=== PATIENT | male | born 1940 | race African-American/Black ===

== ENCOUNTER 2016-06-09 11:17 | Inpatient (IN) | payer OTHER ==
[~2016-06-09] VITALS: Ht 172.7 cm; Wt 83.9 kg
[2016-06-09] VITALS (7 sets, daily range): BP systolic 88–108; BP diastolic 46–71
[2016-06-09] MEDS ORDERED: COLACE100 MG GT (11:22)
[2016-06-09] MEDS ORDERED: VITAMIN C500 M1 GT (11:29)
[2016-06-09] MEDS ORDERED: SENNA8.6 M2 GT (11:29)
[2016-06-09] MEDS ORDERED: ZINC SULFATE220 M1 GT (11:29)
[2016-06-09] MEDS ORDERED: ACETAMINOP160 MG/54 GT (11:29)
[2016-06-09] MEDS ORDERED: MULTI-DELYN237 ML GT (11:29)
[2016-06-09] MEDS ORDERED: ACETAMINOP160 MG/5 M GT (11:29)
[2016-06-09] MEDS ORDERED: IRON325 M1 GT (11:29)
[2016-06-09 12:22] LABS: APPEARANCE,URINE SLIGHTLY CLOUDY; KETONES,URINE NEGATIVE (NEGATIVE); LEUKOCYTE ESTERASE ,URINE 1+ (NEGATIVE); NITRITE,URINE NEGATIVE (NEGATIVE); PH,URINE 5 (4.5-8.0); PROTEIN,URINE 3+ (NEGATIVE); UROBILINOGEN,URINE NORMAL MG/DL (0.0-1.0)
[2016-06-09 12:25] LABS: MEAN CORPUSCULAR HGB CONC 31.3 G/DL (32.0-36.0); MEAN CORPUSCULAR VOLUME 89 FL (80-99); MEAN PLATELET VOLUME 8.1 FL (6.5-10.1); PLATELET COUNT 158 K/UL (150-450); RED BLOOD COUNT 2.83 M/UL (4.70-6.10); RED CELL DISTRIBUTION WIDTH 17.7 % (11.6-14.8); WHITE BLOOD COUNT 5.2 K/UL (4.8-10.8)
[2016-06-09 12:29] LABS: INR 1.1 (0.9-1.1); PROTHROMBIN TIME 10.8 SEC (9.30-11.50)
[2016-06-09 12:30] LABS: BACTERIA,URINE FEW /HPF; SQUAMOUS EPITHELIAL CELL,UR OCCASIONAL /LPF (NONE/OCC)
[2016-06-09 12:31] LABS: AMORPHOUS SEDIMENT,UR FEW /LPF
[2016-06-09 12:34] LABS: ALANINE AMINOTRANSFERASE 43 U/L (3-41); ALBUMIN/GLOBULIN RATIO 0.2 (1.0-2.7); ASPARTATE AMINO TRANSFERASE 72 U/L (5-40); CALCIUM 7.1 mg/dL (8.6-10.2); CARBON DIOXIDE 28 mEQ/L (20-30); CHLORIDE 91 mEQ/L (98-107); CREATININE 0.8 mg/dL (0.7-1.2); HEMOLYSIS 24; LIPASE 22 U/L (< 60); MAGNESIUM 2.4 mg/dL (1.7-2.5); PHOSPHORUS 4.4 mg/dL (2.5-4.8); SODIUM 127 mEQ/L (135-145); TOTAL PROTEIN 4.9 g/dL (6.6-8.7); TROPONIN I < 0.30 ng/mL (<=0.30)
--- NOTE | 2016-06-09 12:37 | Emergency Room Report ---
History of Present Illness General Chief Complaint: Altered Level of Consciousness Source: Medical Record, EMS (KARLO KUMARI D.O.) Present Illness HPI Patient presents from a nursing facility with Hypotension and change in mental status patient is chronically debilitated has a tracheostomy And ventilator dependent Patient was found to be hypotensive prior to arrival and paramedics summoned for further presentation to the ER Patient here is nonverbal The history of present illness is significantly limited Unknown regarding vomiting or diarrhea Patient was also severely hypothermic upon arrival (KARLO KUMARI D.O.) Allergies: Coded Allergies: No Known Allergies (Unverified , 06/09/16) Patient History Limited by: medical condition Past Medical History: see triage record Pertinent Family History: unable to obtain Reviewed Nursing Documentation: PMH: Agreed, PSxH: Agreed (KARLO KUMARI D.O.) Review of Systems All Other Systems: limited - Other than the ones mentioned in the history of present illness all others are reviewed however they do stay limited due to the patient's mental status (KARLO KUMARI D.O.) Physical Exam Vital Signs Date Time Temp Pulse Resp B/P Pulse Ox O2 Delivery O2 Flow Rate FiO2 06/09/16 11:07 97.5 91 19 79/50 99 Ambu-Bag 06/09/16 11:29 100 Sp02 EP Interpretation: reviewed, normal General Appearance: no apparent distress Head: normocephalic, atraumatic Eyes: bilateral eye PERRL ENT: no angioedema, dry mucus membranes Neck: supple, thyroid normal, other - Tracheostomy in place no obvious crepitus Respiratory: no accessory muscle use, crackles - diffusely Cardiovascular #1: regular rate, rhythm, no gallop, no JVD Gastrointestinal: non tender, soft, other - feeding tube in place Musculoskeletal: other - The patient chronically debilitated, not moving extremities to command Neurologic: responsive - To physical stimuli but was nonverbal not following commands Skin: other - Multiple decubitus breakdowns, chronic wounds left lower extremities Lymphatic: no adenopathy (KARLO KUMARI D.O.) Procedures Critical Care Time Critical Care Time Critical care is mandated in this patient who presented with cardiac arrest. Patient require my urgent intervention to attenuate the risks of metabolic collapse which may lead to cardiovascular collapse and . Critical care time is 35 minutes excluding any reportable procedure. Critical care time included evaluation, multiple reevaluation, looking at old charts, interpreting laboratory and diagnostic data, discussing case with patient and family and consultants, and charting. (LYNNETTE MENA M.D.) Medical Decision Making Diagnostic Impression: Primary Impression: Anemia Qualified Codes: D64.9 - Anemia, unspecified Additional Impressions: Pneumonia Qualified Codes: J18.9 - Pneumonia, unspecified organism Cardiac arrest Sepsis Qualified Codes: A41.9 - Sepsis, unspecified organism Acute and chronic respiratory failure ([id number]) Qualified Codes: J96.20 - Acute and chronic respiratory failure, unspecified whether with hypoxia or hypercapnia Labs Test 06/09/16 12:00 White Blood Count 5.2 K/UL (4.8-10.8) Red Blood Count 2.83 M/UL (4.70-6.10) Hemoglobin 7.9 G/DL (14.2-18.0) Hematocrit 25.3 % (42.0-52.0) Mean Corpuscular Volume 89 FL (80-99) Mean Corpuscular Hemoglobin 28.0 PG (27.0-31.0) Mean Corpuscular Hemoglobin Concent 31.3 G/DL (32.0-36.0) Red Cell Distribution Width 17.7 % (11.6-14.8) Platelet Count 158 K/UL (150-450) Mean Platelet Volume 8.1 FL (6.5-10.1) Neutrophils (%) (Auto) % (45.0-75.0) Lymphocytes (%) (Auto) % (20.0-45.0) Monocytes (%) (Auto) % (1.0-10.0) Eosinophils (%) (Auto) % (0.0-3.0) Basophils (%) (Auto) % (0.0-2.0) Differential Total Cells Counted 100 Neutrophils % (Manual) 60 % (45-75) Lymphocytes % (Manual) 23 % (20-45) Monocytes % (Manual) 7 % (1-10) Eosinophils % (Manual) 0 % (0-3) Basophils % (Manual) 0 % (0-2) Band Neutrophils 10 % (0-8) Platelet Estimate Adequate Platelet Morphology Normal Hypochromasia 1+ Anisocytosis 1+ Microcytosis 1+ Macrocytosis Occasional Prothrombin Time 10.8 SEC (9.30-11.50) Prothromb Time International Ratio 1.1 (0.9-1.1) Activated Partial Thromboplast Time 32 SEC (23-33) Urine Color Yellow Urine Appearance Slightly cloudy Urine pH 5 (4.5-8.0) Urine Specific [place] 1.010 (1.005-1.035) Urine Protein 3+ (NEGATIVE) Urine Glucose (UA) Negative (NEGATIVE) Urine Ketones Negative (NEGATIVE) Urine Occult Blood 2+ (NEGATIVE) Urine Nitrite Negative (NEGATIVE) Urine Bilirubin Negative (NEGATIVE) Urine Urobilinogen Normal MG/DL (0.0-1.0) Urine Leukocyte Esterase 1+ (NEGATIVE) Urine RBC 2-4 /HPF (0 - 0) Urine WBC 2-4 /HPF (0 - 0) Urine Squamous Epithelial Cells Occasional /LPF Urine Amorphous Sediment Few /LPF (NONE) Urine Bacteria Few /HPF (NONE) Sodium Level 127 mEQ/L (135-145) Potassium Level 5.9 mEQ/L (3.4-4.9) Chloride Level 91 mEQ/L (98-107) Carbon Dioxide Level 28 mEQ/L (20-30) Anion Gap 8 (5-15) Blood Urea Nitrogen 38 mg/dL (7-23) Creatinine 0.8 mg/dL (0.7-1.2) Estimat Glomerular Filtration Rate mL/min (>60) Glucose Level 46 mg/dL (74-106) Lactic Acid Level 0.90 mmol/L (0.66-2.22) Calcium Level 7.1 mg/dL (8.6-10.2) Phosphorus Level 4.4 mg/dL (2.5-4.8) Magnesium Level 2.4 mg/dL (1.7-2.5) Total Bilirubin 0.3 mg/dL (0.0-1.2) Aspartate Amino Transf (AST/SGOT) 72 U/L (5-40) Alanine Aminotransferase (ALT/SGPT) 43 U/L (3-41) Alkaline Phosphatase 350 U/L (40-129) Total Creatine Kinase 35 U/L (38-174) Creatine Kinase MB 4.6 ng/mL (< 6.7) Creatine Kinase MB Relative Index 13.1 Troponin I < 0.30 ng/mL (<=0.30) Pro-B-Type Natriuretic Peptide 6802 pg/mL (0-450) Total Protein 4.9 g/dL (6.6-8.7) Albumin 1.0 g/dL (3.5-5.2) Globulin 3.9 g/dL Albumin/Globulin Ratio 0.2 (1.0-2.7) Lipase 22 U/L (< 60) (KARLO KUMARI D.O.) ER Course This patient has acute on chronic respiratory failure secondary to multilobar pneumonia. Patient was in the ER an extended period time and was transfer of to [facility]. Was called to CODE BLUE. Shortly after he arrived to the [facility], he became bradycardic and hypotensive. He lost his pulse and a code was called. Per respiratory therapist, and his suction copious amount of purulent discharge from his trachea. He received CPR and had 2 rounds of epinephrine. He regained his pulse and blood pressure was normal. Patient was transferred to ICU. I suspect his cardiac arrest maybe secondary to a warming sepsis, because plugging, respiratory failure. Prognosis is poor. (LYNNETTE MENA M.D.) Last Vital Signs Date Time Temp Pulse Resp B/P Pulse Ox O2 Delivery O2 Flow Rate FiO2 06/09/16 12:29 97.5 14 97/50 99 Ambu-Bag 100 06/09/16 11:29 92 Status: improved (KARLO KUMARI D.O.) Status: worsened (LYNNETTE MENA M.D.) Disposition: ADMITTED INPATIENT Condition: Critical Referrals: [facility],REFERRING (PCP) KARLO KUMARI D.O. Jun 09, 2016 12:37 LYNNETTE MENA M.D. Jun 10, 2016 03:52
[2016-06-09 12:44] LABS: CKMB 4.6 ng/mL (< 6.7)
[2016-06-09 12:50] LABS: ANION GAP 8 (5-15); POTASSIUM 5.9 mEQ/L (3.4-4.9)
[2016-06-09] MEDS ORDERED: Vancomycin 1 GM in NS 275 ML IVPB ONE (13:00)
[2016-06-09] MEDS ORDERED: Piperacillin/Tazobactam 3.375 GM in NS 110 ML IVPB ONE (13:00)
[2016-06-09] MEDS ORDERED: NS 1000ml 1,900 ML IVLG ONE (13:00)
[2016-06-09 13:01] LABS: ANISOCYTOSIS 1+; BAND NEUTROPHILS % (MANUAL) 10 % (0-8); HYPOCHROMASIA 1+; LYMPHOCYTES % (MANUAL) 23 % (20-45); MICROCYTES 1+; NEUTROPHILS % (MANUAL) 60 % (45-75); TOTAL CELLS COUNTED 100
[2016-06-09 13:02] LABS: MACROCYTES OCCASIONAL
[2016-06-09 13:03] LABS: BASOPHILS % (MANUAL) 0 % (0-2); EOSINOPHILS % (MANUAL) 0 % (0-3); PLATELET ESTIMATE ADEQUATE; PLATELET MORPHOLOGY NORMAL
[2016-06-09] MEDS ORDERED: Sodium Polystyrene Sulfonate 15gm Powder ORAL ONE (13:15)
[2016-06-09] MEDS ORDERED: Vancomycin 1gm inj IVPB ONE (14:03)
[2016-06-09] MEDS ORDERED: Zosyn 3.375gm inj ONE (14:03)
[2016-06-09] MEDS ORDERED: Dextrose 10% 1,000 ML IV SCH (16:00)
[2016-06-10] VITALS (85 sets, daily range): BP systolic 53–130; BP diastolic 20–88
[2016-06-10 02:28] LABS: ABG ALLEN TEST POSITIVE; ABG BASE EXCESS -6.6; ABG PCO2 67.3 mmHg (35.0-45.0)
[2016-06-10] MEDS ORDERED: Vancomycin 750mg Inj IVPB ONE (03:02)
[2016-06-10] MEDS ORDERED: Zosyn 3.375gm inj ONE (03:02)
[2016-06-10] MEDS ORDERED: Piperacillin/Tazobactam 3.375 GM in D5W 110 ML IVPB SCH (03:30)
[2016-06-10] MEDS ORDERED: Levophed 4mg/4mL Inj IV ONE (03:35)
[2016-06-10] MEDS: Vancomycin 750mg/D5W 275ml IVPB SCH ×4 (04:00→17:26)
[2016-06-10 04:52] LABS: MEAN CORPUSCULAR VOLUME 90 FL (80-99); MEAN PLATELET VOLUME 9.5 FL (6.5-10.1); PLATELET COUNT 195 K/UL (150-450); RED CELL DISTRIBUTION WIDTH 17.9 % (11.6-14.8); WHITE BLOOD COUNT 4.5 K/UL (4.8-10.8)
[2016-06-10 05:32] LABS: ALANINE AMINOTRANSFERASE 39 U/L (3-41); ALBUMIN/GLOBULIN RATIO 0.4 (1.0-2.7); ANION GAP 10 (5-15); ASPARTATE AMINO TRANSFERASE 67 U/L (5-40); CALCIUM 6.5 mg/dL (8.6-10.2); CARBON DIOXIDE 25 mEQ/L (20-30); CHLORIDE 94 mEQ/L (98-107); CREATININE 0.9 mg/dL (0.7-1.2); HEMOLYSIS 4; POTASSIUM 5.4 mEQ/L (3.4-4.9); SODIUM 129 mEQ/L (135-145); TOTAL PROTEIN 4.2 g/dL (6.6-8.7)
[2016-06-10 05:33] LABS: TROPONIN I < 0.30 ng/mL (<=0.30)
[2016-06-10] MEDS: Piperacillin/Tazobactam 3.375 GM in D5W 110 ML IVPB SCH ×3 (05:53→21:22)
[2016-06-10] MEDS: metroNIDAZOLE 500mg tab GT SCH ×3 (06:11→21:22)
[2016-06-10 07:25] LABS: ABG BASE EXCESS -0.8; ABG PCO2 50.3 mmHg (35.0-45.0)
[2016-06-10] MEDS ORDERED: Acetaminophen Soln 160mg/5ml ORAL PRN (07:45)
[2016-06-10] MEDS ORDERED: Acetaminophen 650mg/20.3ml GT PRN (07:45)
[2016-06-10] MEDS ORDERED: Heparin 5000 units/ml inj SUBQ SCH (09:00)
[2016-06-10] MEDS: D5NS 1,000 ML IV SCH ×2 (09:25→17:26)
[2016-06-10] MEDS: Ferrous Sulfate 300 MG/5 ML UDC GT SCH (09:36)
[2016-06-10] MEDS: Zinc Sulfate 220mg cap GT SCH (09:36)
[2016-06-10] MEDS: Multivitamin 5ml Liquid GT SCH (09:36)
[2016-06-10] MEDS: Ascorbic Acid 500mg tab GT SCH (09:36)
[2016-06-10] MEDS ORDERED: Sodium Polystyrene Sulfonate 15gm Powder ORAL ONE (10:00)
--- NOTE | 2016-06-10 11:21 | Diagnostic Imaging Report ---
Indication: Chest Pain Comparison: None A single view chest radiograph was obtained. Findings: Tracheostomy is noted. There is a left upper extremity PICC line that terminates in the midline of the chest. Heart size is normal. There are diffuse primarily interstitial appearing infiltrates bilaterally versus pulmonary interstitial edema. The bones are osteopenic. There is volume loss at the left lung base with elevation of the diaphragm. Lucency central to this is probably the stomach. Impression: Interstitial edema versus pneumonitis/infiltrate. Please correlate clinically Left basilar volume loss due to atelectasis suspected.
--- NOTE | 2016-06-10 11:27 | Diagnostic Imaging Report ---
Indication: Dyspnea Comparison: 06/09/16 A single view chest radiograph was obtained. Findings: Lungs are hyperexpanded. There is a left pleural effusion suspected. Heart size is stable and within normal limits. Interstitial pneumonia versus edema again demonstrated. Some consolidation in the left midlung also demonstrated. The findings are unchanged. Impression: No significant overlock waistline joiner one day.
--- NOTE | 2016-06-10 11:48 | History and Physical Report ---
DATE OF ADMISSION: 06/09/2016 CHIEF COMPLAINT: Sepsis shock and cardiopulmonary arrest. HISTORY OF PRESENT ILLNESS: The patient is a 75-year-old male. He has a history of chronic respiratory failure, anemia, multiple pressure ulcers, cardiomyopathy, COPD, who was transferred from a intermediate facility with altered mental status, hypotension, and hypothermia. On evaluation in the emergency room, the patient had multi lobar pneumonia. He was started on broad-spectrum antibiotic therapy. He was admitted. Shortly after being admitted, he had a Code Blue. He became bradycardic after CPR. He was resuscitated and is now in the intensive care unit. He is on Levophed. He is poorly responsive. According to the patient's power of insurance defense attorney, the patient was previously awake and able to follow commands. PAST MEDICAL HISTORY: As above. PAST SURGICAL HISTORY: History of a tracheostomy and a G-tube. CURRENT MEDICATIONS: Reconciled and reviewed. ALLERGIES: None. FAMILY HISTORY: Unknown. SOCIAL HISTORY: There is no known history of tobacco, ethanol, or drugs. REVIEW OF SYSTEMS: From the patient is unobtainable. PHYSICAL EXAMINATION: VITAL SIGNS: Temperature was 94 degrees, blood pressure 112/46, pulse 67, respirations 19. GENERAL: The patient is a chronically ill-appearing thin male. HEENT: He has tracheostomy on the ventilator. He does open his eyes, but does not track or follow commands. NECK: Supple. There is some excoriations and ecchymoses at the trach site. HEART: Regular rate and rhythm. LUNGS: Clear. Bilateral rhonchi and rales. ABDOMEN: Soft and slightly distended. There is no rebound or guarding. EXTREMITIES: Without clubbing or cyanosis. The patient has multiple pressure ulcers. LABORATORY AND DIAGNOSTIC DATA: UA showed 2 to 4 WBCs. White count 5, hemoglobin 8 to 7.9, hematocrit 25.3, and platelet count 158,000. ABG showed pH of 7.32, pCO2 50, CO2 27, bicarb 26, and O2 saturation 99. Coags are normal. Sodium is 129, potassium 5.4, chloride 94, bicarbonate 25, BUN 38, creatinine 0.9, and glucose of 21. Lactic acid was 6.5. Troponin was negative x2. ASSESSMENT: This is an unfortunate male with, 1. Chronic respiratory failure. 2. Chronic obstructive pulmonary disease . 3. Anemia . 4. Cardiomyopathy. 5. Multiple pressure ulcers admitted with sepsis status post Code Blue. 6. Shock. 7. Sepsis. 8. Status post cardiac arrest. 9. Paroxysmal atrial fibrillation. 10. History of congestive heart failure. 11. Chronic obstructive pulmonary disease. PLAN: IV fluids, broad-spectrum antibiotics, pressors as needed. DVT and stress ulcer prophylaxis. We will follow up pending cultures. The patient's status is currently critical guarded. This was discussed with the patient's [id number] who wants the patient Full Code. Blood transfusion was discussed with the power of insurance defense attorney, risks and benefits. He is agreeable for blood transfusion, if needed . Tim Mcdaniel M.D. DR: Priya JOB#: [id number] CC:
[2016-06-10 12:15] LABS: TROPONIN I < 0.30 ng/mL (<=0.30)
[2016-06-10 18:54] LABS: TROPONIN I < 0.30 ng/mL (<=0.30)
--- NOTE | 2016-06-10 19:12 | Wound Care Consultation ---
Wound Assessment Wound Assessment #1: Wound Present on Admission: Yes New Wound: No Status Change of Wound: No Wound Location Body Site Modif: right Wound Location Body Site: other - Trach site Wound Type: traumatic injury Rodrick Test: Does not Rodrick Traumatic Injury Wounds: Skin Tear Wound Thickness: Partial Thickness Wound Length: 1.0 Wound Width: 1.0 Percent of Wound Bed Yellow/Wh: 100 Wound Drainage Amount: None Wound Drainage Odor: None/Absent Tissue Surrounding Wound: ecchymosis Wound General Appearance: Reddened Wound Assessment #2: Wound Number: #2 Wound Present on Admission: Yes New Wound: No Status Change of Wound: No Wound Location Body Site Modif: left, dorsal Wound Location Body Site: foot Wound Type: blister - open blister Rodrick Test: Does not Rodrick Blisters: Blister w/Sloughing Wound Length: 2.5 Wound Width: 3.0 Wound Drainage Description: Serosanguineous Wound Drainage Amount: Scant Wound Drainage Odor: None/Absent Tissue Surrounding Wound: Macerated Wound General Appearance: Reddened Wound Assessment #3: Wound Number: #3 Wound Present on Admission: Yes New Wound: No Status Change of Wound: No Wound Location Body Site Modif: left Wound Location Body Site: metatarsal head - 1st Wound Type: pressure ulcer Rodrick Test: Does not Rodrick Pressure Ulcer Stage: deep tissue injury Wound Thickness: Full Thickness Wound Length: 3.5 Wound Width: 3.0 Wound Depth: utd Percent of Wound Black/Brown: 100 Wound Drainage Amount: None Wound Drainage Odor: None/Absent Tissue Surrounding Wound: Intact Wound General Appearance: Asymptomatic, Blackened Wound Assessment #4: Wound Number: #4 Wound Present on Admission: Yes New Wound: No Status Change of Wound: No Wound Location Body Site Modif: left Wound Location Body Site: metatarsal head - 5th and 5th lateral toe Wound Type: pressure ulcer Rodrick Test: Does not Rodrick Pressure Ulcer Stage: deep tissue injury Wound Thickness: Full Thickness Wound Length: 4.5 Wound Width: 2.5 Wound Depth: utd Percent of Wound Black/Brown: 100 Wound Drainage Amount: None Wound Drainage Odor: None/Absent Tissue Surrounding Wound: Intact Wound General Appearance: Asymptomatic, Blackened Wound Assessment #5: Wound Number: #5 Wound Present on Admission: Yes New Wound: No Status Change of Wound: No Wound Location Body Site Modif: left, mid Wound Location Body Site: foot Wound Type: pressure ulcer Rodrick Test: Does not Rodrick Pressure Ulcer Stage: deep tissue injury Wound Thickness: Full Thickness Wound Length: 2.0 Wound Width: 2.0 Wound Depth: utd Percent of Wound Purple/Maroon: 100 Wound Drainage Amount: None Wound Drainage Odor: None/Absent Tissue Surrounding Wound: Erythemic Wound General Appearance: Asymptomatic, Reddened Wound Assessment #6: Wound Number: #6 Wound Present on Admission: Yes New Wound: No Status Change of Wound: No Wound Location Body Site Modif: left Wound Location Body Site: heel Wound Type: pressure ulcer Rodrick Test: Does not Rodrick Pressure Ulcer Stage: deep tissue injury Wound Thickness: Full Thickness Wound Length: 4.5 Wound Width: 3.5 Wound Depth: utd Percent of Wound Black/Brown: 100 Wound Drainage Amount: None Wound Drainage Odor: None/Absent Tissue Surrounding Wound: Erythemic Wound General Appearance: Blackened Wound Assessment #7: Wound Number: #7 Wound Present on Admission: Yes New Wound: No Status Change of Wound: No Wound Location Body Site Modif: left, medial Wound Location Body Site: heel Wound Type: pressure ulcer Rodrick Test: Does not Rodrick Pressure Ulcer Stage: deep tissue injury Wound Thickness: Full Thickness Wound Length: 3.0 Wound Width: 3.5 Wound Depth: utd Percent of Wound Black/Brown: 100 Wound Drainage Amount: None Wound Drainage Odor: None/Absent Tissue Surrounding Wound: Erythemic Wound General Appearance: Blackened Wound Assessment #8: Wound Number: #8 Wound Present on Admission: Yes New Wound: No Status Change of Wound: No Wound Location Body Site Modif: left, medial Wound Location Body Site: malleolus/ankle Wound Type: pressure ulcer Rodrick Test: Does not Rodrick Pressure Ulcer Stage: deep tissue injury Wound Thickness: Full Thickness Wound Length: 2.5 Wound Width: 2.5 Wound Depth: utd Percent of Wound Black/Brown: 100 Wound Drainage Amount: None Wound Drainage Odor: None/Absent Tissue Surrounding Wound: Intact Wound General Appearance: Asymptomatic, Blackened Wound Assessment #9: Wound Number: #9 Wound Present on Admission: Yes New Wound: No Status Change of Wound: No Wound Location Body Site Modif: left, posterior Wound Location Body Site: leg Wound Type: pressure ulcer Rodrick Test: Does not Rodrick Pressure Ulcer Stage: IV/unstageable Wound Thickness: Full Thickness Wound Length: 20.0 Wound Width: 5.0 Wound Depth: utd Percent of Wound Black/Brown: 100 Wound Drainage Description: Serosanguineous Wound Drainage Amount: Scant Wound Drainage Odor: None/Absent Tissue Surrounding Wound: Macerated Wound General Appearance: Blackened, Necrotic Wound Assessment #10: Wound Number: #10 Wound Present on Admission: Yes New Wound: No Status Change of Wound: No Wound Location Body Site Modif: left, lower, lateral Wound Location Body Site: knee - below the knee Wound Type: pressure ulcer Rodrick Test: Does not Rodrick Pressure Ulcer Stage: IV/unstageable Wound Thickness: Full Thickness Wound Length: 2.5 Wound Width: 2.5 Wound Depth: utd Percent of Wound Black/Brown: 100 Wound Drainage Description: Serosanguineous Wound Drainage Amount: Scant Wound Drainage Odor: None/Absent Tissue Surrounding Wound: Indurated Wound General Appearance: Blackened Wound Assessment #11: Wound Number: #11 Wound Present on Admission: Yes New Wound: No Status Change of Wound: No Wound Location Body Site Modif: left, posterior Wound Location Body Site: knee Rodrick Test: Does not Rodrick Traumatic Injury Wounds: Abrasion Wound Thickness: Full Thickness Wound Length: 3.0 Wound Width: 2.0 Percent of Wound [place]/Red: 100 Wound Drainage Amount: None Wound Drainage Odor: None/Absent Tissue Surrounding Wound: Erythemic Wound General Appearance: Reddened Wound Assessment #12: Wound Number: #12 Wound Present on Admission: Yes New Wound: No Status Change of Wound: No Wound Location Body Site Modif: left, upper Wound Location Body Site: back Wound Type: pressure ulcer Rodrick Test: Does not Rodrick Pressure Ulcer Stage: II Wound Thickness: Partial Thickness Wound Length: 1.5 Wound Width: 1.5 Wound Depth: 0.1 Percent of Wound [place]/Red: 100 Wound Drainage Description: Serosanguineous Wound Drainage Amount: Scant Wound Drainage Odor: None/Absent Tissue Surrounding Wound: Erythemic Wound General Appearance: Reddened Wound Assessment #13: Wound Number: #13 Wound Present on Admission: Yes New Wound: No Status Change of Wound: No Wound Location Body Site Modif: mid Wound Location Body Site: other - sacroccygeal Wound Type: pressure ulcer Rodrick Test: Does not Rodrick Pressure Ulcer Stage: IV/unstageable Wound Thickness: Full Thickness Wound Length: 10.0 Wound Width: 11.5 Wound Depth: utd Percent of Wound [place]/Red: 10 Percent of Wound Bed Yellow/Wh: 40 Percent of Wound Black/Brown: 50 Wound Drainage Description: Serosanguineous Wound Drainage Amount: Moderate Wound Drainage Odor: Mild Odor Tissue Surrounding Wound: Macerated Wound General Appearance: Blackened, Draining, Necrotic Wound Assessment #14: Wound Number: #14 Wound Present on Admission: Yes New Wound: No Status Change of Wound: No Wound Location Body Site Modif: right, lower, lateral Wound Location Body Site: leg Wound Type: traumatic injury Rodrick Test: Does not Rodrick Traumatic Injury Wounds: Skin Tear - multiple Wound Thickness: Partial Thickness Wound Drainage Description: Serosanguineous Wound Drainage Amount: Scant Wound Drainage Odor: None/Absent Tissue Surrounding Wound: Erythemic Wound General Appearance: Reddened Wound Assessment #15: Wound Number: #15 Wound Present on Admission: Yes New Wound: No Status Change of Wound: No Wound Location Body Site Modif: left, upper Wound Location Body Site: arm Wound Type: blister - open Rodrick Test: Does not Rodrick Blisters: Blister w/Sloughing Wound Length: 3.0 Wound Width: 1.5 Percent of Wound Bed Yellow/Wh: 100 Wound Drainage Description: Serosanguineous Wound Drainage Amount: Scant Wound Drainage Odor: None/Absent Tissue Surrounding Wound: Erythemic Wound General Appearance: Draining Wound Assessment #16: Wound Number: #16 Wound Present on Admission: Yes New Wound: No Status Change of Wound: No Wound Location Body Site Modif: right, lateral Wound Location Body Site: toe - big toe Wound Type: pressure ulcer Rodrick Test: Does not Rodrick Pressure Ulcer Stage: deep tissue injury Wound Thickness: Full Thickness Wound Length: 1.0 Wound Width: 0.5 Wound Depth: utd Percent of Wound Purple/Maroon: 100 Wound Drainage Amount: None Wound Drainage Odor: None/Absent Tissue Surrounding Wound: Intact Wound General Appearance: Asymptomatic, Reddened Wound Assessment #17: Wound Number: #17 Wound Present on Admission: Yes New Wound: No Status Change of Wound: No Wound Location Body Site Modif: left, lateral Wound Location Body Site: malleolus/ankle Wound Type: pressure ulcer Rodrick Test: Does not Rodrick Pressure Ulcer Stage: deep tissue injury Wound Thickness: Full Thickness Wound Length: 2.0 Wound Width: 2.5 Wound Depth: utd Percent of Wound Purple/Maroon: 100 Wound Drainage Amount: None Wound Drainage Odor: None/Absent Tissue Surrounding Wound: Erythemic Wound General Appearance: Asymptomatic, Reddened Wound Assessment #18: Wound Number: #18 Wound Present on Admission: Yes New Wound: No Status Change of Wound: No Wound Location Body Site: back Wound Type: other - with multiple discolorations purple in color and small skin tears Rodrick Test: Does not Rodrick Wound Drainage Amount: None Wound Drainage Odor: None/Absent Tissue Surrounding Wound: Erythemic Wound General Appearance: Reddened Wound Comment #1 Skin tear on left upper chest near to trach site with ecchymosis in a large area #2 Left dorsal foot which appears to be open blister with slough #3 1st metatarsal head DTI pressure ulcer #4 5th metatarsal and 5th lateral toe DTI pressure ulcer #5 Left Mid foot DTI pressure ulcer #6 Left heel DTI pressure ulcer #7 Left medial heel DTI pressure ulcer #8 Left medial malleolus DTI pressure ulcer #9 Left lateral malleolus DTI pressure ulcer #10 Left posterior lower leg stage IV/unstageable pressure ulcer #11 Left Lateral lower leg below knee stage IV/unstageable pressure ulcer #12 Left upper back stage II pressure ulcer #13 Sacrococcygeal stage IV/unstageable pressure ulcer #14 Right lower lateral leg with multiple skin teras #15 Left posterior knee abrasion #16 Left upper arm open blister with slough #17 Back area with multiple discolorations and skin tears #18 Right Lateral big to DTI pressure ulcer Recommendation -Keep clean and dry -Turn and reposition -Optimize nutrition -Low air loss mattress -Offload both heels -Heel protector on both heels -Consult for possible debridement of sacrococcygeal pressure ulcers with black leathery eschar -Local wound care per protocol for DTI -Sacrococcygeal area Cleanse with Dakin's solution, pat dry, apply Therahoney gel to wound bed, cover with Biatain silicone drg daily and PRN soiled/dislodged -Skin tears in multiple areas, Left posterior leg, left lateral leg, back area, left upper arm open blister with slough and left dorsal foot open blister with slough Cleanse with saline pat dry apply adaptic cover with bordered gauze daily and PRN soiled/dislodged -Assess and f/u accordingly for any changes SIMBA PORTER RN Jun 10, 2016 19:12
--- NOTE | 2016-06-10 20:08 | Consultation ---
DATE OF CONSULTATION: 06/10/2016 PULMONARY CONSULTATION REASON FOR CONSULTATION: Respiratory failure, hypotension, and sepsis. HISTORY OF PRESENT ILLNESS: The patient is a 75-year-old male, brought in with hypotension. The patient has also reduced mental status at the nursing facility. The patient is ventilator-dependant. The patient was brought in by 911. He is overall nonverbal. The patient's care was discussed and reviewed at the care home. The patient had fever at the nursing facility as well as in the emergency room. The patient was evaluated and found to have pneumonia. Also, the patient was noted to be significantly acidotic. Repeat blood gases, however, on changes in the ventilator are now improved. The patient's oxygenation appears to be mildly improved. The patient had no prodrome of symptoms. No fevers and no chills reported in the nursing facility. Events were very acute in nature overall per review and discussion with the care home staff. PAST MEDICAL HISTORY: The patient's past medical history is notable for history of cardiac arrest, history of significant anoxia, history of respiratory failure, history of chronic encephalopathy, history of anemia, history of contractures, history of tracheostomy, history of G-tube, and history of aspiration. MEDICATIONS: Reviewed. ALLERGIES: Reviewed. SOCIAL HISTORY: Recently working at [employer]. Nonsmoker and nondrinker. Bed-bound state. PHYSICAL EXAMINATION: GENERAL: Very contracted individual, poorly responsive. VITAL SIGNS: Blood pressure 107/28, the patient is saturating 100% on the ventilator, heart rate 72, recorded temperature is 98 degrees, and respiratory rate is 21. HEENT: Fairly negative. Mild temporal wasting noted. Oropharynx is dry. NECK: Supple. Carotids 2+. LUNGS: Coarse breath sounds. Moderate air entry. CARDIAC: Normal S1 and S2. Overall, with regular rate and rhythm. Systolic murmur at the left parasternal border. No rubs or gallops. ABDOMEN: Soft, nontender, and nondistended. G-tube in place. No hepatosplenomegaly. EXTREMITIES: No cyanosis or clubbing with noted contractures. NEUROLOGIC: Poorly responsive. LABORATORY DATA: Lab data all reviewed. White count is 4.5, hemoglobin 8.1, and platelets 195,000. Arterial blood gases initially with pH of 7.14, repeated with adjustment in the ventilator 7.32, CO2 of 50, O2 of 187, and bicarbonate 26. Chemistry, BUN 38, creatinine 0.9, sodium 139, and potassium 5.4. Albumin is 2.3. The x-ray is notable for pneumonia. IMPRESSION: 1. Sepsis with shock. 2. Hypotension. 3. Electrolyte imbalance. 4. Hyponatremia. 5. Hyperkalemia. 6. Acute renal failure. 7. Severe protein-calorie malnutrition. 8. Chronic encephalopathy. 9. Respiratory acidosis. RECOMMENDATIONS: 1. IV antibiotics empirically. 2. Echocardiogram. 3. DVT prophylaxis. 4. IV hydration. 5. Duplex of lower extremity to rule out DVT. 6. Resume care home medications. 7. Wound care evaluation. 8. Ventilatory management. 9. Follow up arterial blood gases and adjust, monitor clinically and recommend to taper FiO2 and pressors with Levophed as needed. 10. Cardiology and ID evaluation to follow. 11. The patient is guarded and critical at this time. Jr Perez M.D. DR: ELISA JOB#: [id number] CC: JOVANNY
[2016-06-10] MEDS ORDERED: Heparin 2000 units/Ns 1000ml IV ONE (20:30)
[2016-06-10] MEDS ORDERED: Heparin 25,000u/D5W 500ml 500 ML IV SCH (20:45)
[2016-06-10] MEDS ORDERED: Heparin 5000 units/ml inj IV ONE (20:45)
[2016-06-11] VITALS (80 sets, daily range): BP systolic 69–105; BP diastolic 35–59
[2016-06-11 00:21] LABS: INR 1.2 (0.9-1.1); PROTHROMBIN TIME 11.8 SEC (9.30-11.50)
--- NOTE | 2016-06-11 02:18 | Progress Note ---
DATE: 06/10/2016 CARDIOLOGY PROGRESS NOTE: SUBJECTIVE: The patient's condition remains critical. Prognosis is guarded. He is status post Code Blue as of yesterday. He remains on ventilator support via tracheostomy. He remains hypotensive and is requiring pressor. He is on broad-spectrum antibiotics. OBJECTIVE: VITAL SIGNS: Blood pressure is 98/49, pulse rate 90, respiratory rate 24, and temperature 97.4 degrees. NECK: Thick trach secretions. LUNGS: Coarse rhonchi with rales. HEART: Regular rhythm and rate. Normal S1 and S2. ABDOMEN: Soft. G-tube is intact. EXTREMITIES: Trace edema. Multiple decubiti, pictured. LABORATORY DATA: White count is 4.5 and hemoglobin 8.1. Troponin is negative. BUN is 38, creatinine 0.9, sodium 129, and potassium 5.4. Albumin is 1.3. ABG, pH is 7.32, pCO2 50, and pO2 187. IMPRESSION: 1. Sepsis. 2. Shock. 3. Status post code blue. 4. S/P Cardiopulmonary Arrest. 5. Hypovolemia. 6. Acute on chronic respiratory acidosis. 7. Lactic acidosis. 8. Paroxysmal atrial fibrillation. 9. Critical and guarded. PLAN: 1. Volume support broad-spectrum antibiotics. 2. Ventilator support. 3. Taper pressors as able. 4. Stress ulcer and deep venous thrombosis prophylaxis. 5. Skin care. Eddie Britt M.D. DR: Gatito JOB#: [id number] CC: JOVANNY
[2016-06-11] MEDS: D5NS 1,000 ML IV SCH ×3 (02:41→14:22)
--- NOTE | 2016-06-11 02:58 | Consultation ---
DATE OF CONSULTATION: 06/09/2016 CARDIOLOGY CONSULT CONSULTING PHYSICIAN: Eddie Britt M.D. REQUESTING PHYSICIAN: Tim Mcdaniel M.D. REASON FOR CONSULTATION: Shock. HISTORY OF PRESENT ILLNESS: The patient is seen in the emergency room. He presented earlier today from a intermediate facility with low blood pressure and lethargy. The patient has chronic respiratory failure with tracheostomy and is ventilator-dependent. In the emergency room, the patient was given IV fluid challenges. His initial blood pressure was 79/50, heart rate 91, and respiratory rate 19. The patient had a Code Blue episode upon admission with hypotension and bradycardia. He was suctioned from his endotracheal tube and received two rounds of epinephrine and was able to regain pulse and blood pressure. PAST MEDICAL HISTORY: Chronic obstructive pulmonary disease, ventilator-dependent respiratory failure, decubitus, chronic anemia, ischemic cardiomyopathy, history of congestive heart failure, dysphagia with G-tube, and paroxysmal atrial fibrillation. ALLERGIES: None. FAMILY HISTORY: Not known. SOCIAL HISTORY: No record of smoking or alcohol abuse, however, data is scant. REVIEW OF SYSTEMS: Not obtainable from the patient. Pertinent data that is available from record review is outlined above. The patient intermediate home chart has been reviewed by me. PHYSICAL EXAMINATION: GENERAL: The patient is ill-appearing and presently non-communicative. HEENT: Tracheostomy site with thick secretions. LUNGS: With coarse rhonchi and rales. CARDIAC: Regular rhythm and rate. Normal S1 and S2 with no appreciable murmur. ABDOMEN: Soft with G-tube intact. EXTREMITIES: Without edema. Multiple decubitus pictured. LABORATORY DATA: Urinalysis with no active sediment. White count 5 and hemoglobin 8. ABG, pH 7.32, pCO2 50, and pO2 97. Sodium 129, potassium 5.4, bicarbonate 25, BUN 38, and creatinine 0.9. Lactic acid 6.5. Troponin negative. IMPRESSION: 1. Status post respiratory failure and Code Blue arrest. 2. Ventilator-dependent respiratory failure. 3. Chronic obstructive pulmonary disease. 4. Shock, likely due to sepsis and possibly hypovolemia. 5. Anemia. 6. Underlying cardiomyopathy of unclear etiology. 7. Paroxysmal atrial fibrillation. 8. Lactic acidosis. PLAN: 1. Ventilator support via trach. 2. Volume resuscitation. 3. Pressors if inadequate response. 4. Stress ulcer and DVT prophylaxis. 5. Skin care evaluation. 6. Broad-spectrum antibiotics. 7. Monitor electrolytes and replace accordingly. 8. Monitor arterial blood gases and adjust vent settings accordingly as well as intravenous fluids. 9. Transfuse for hemoglobin below 8 g. 10. Echocardiogram to assess left ventricular function. Eddie Britt M.D. DR: ROSENDA JOB#: [id number] CC:
[2016-06-11] MEDS: Vancomycin 750mg/D5W 275ml IVPB SCH ×4 (03:44→16:17)
[2016-06-11 04:19] LABS: MEAN CORPUSCULAR HEMOGLOBIN 27.8 PG (27.0-31.0); MEAN CORPUSCULAR HGB CONC 31.2 G/DL (32.0-36.0); MEAN CORPUSCULAR VOLUME 89 FL (80-99); MEAN PLATELET VOLUME 8.9 FL (6.5-10.1); PLATELET COUNT 145 K/UL (150-450); RED BLOOD COUNT 2.56 M/UL (4.70-6.10); RED CELL DISTRIBUTION WIDTH 17.9 % (11.6-14.8); WHITE BLOOD COUNT 4.8 K/UL (4.8-10.8)
[2016-06-11 04:38] LABS: ALANINE AMINOTRANSFERASE 31 U/L (3-41); ALBUMIN/GLOBULIN RATIO 0.2 (1.0-2.7); ANION GAP 13 (5-15); ASPARTATE AMINO TRANSFERASE 46 U/L (5-40); CALCIUM 6.6 mg/dL (8.6-10.2); CARBON DIOXIDE 23 mEQ/L (20-30); CHLORIDE 92 mEQ/L (98-107); HEMOLYSIS 0; POTASSIUM 4.7 mEQ/L (3.4-4.9); SODIUM 128 mEQ/L (135-145); TOTAL PROTEIN 4.4 g/dL (6.6-8.7)
[2016-06-11 04:42] LABS: INR 1.2 (0.9-1.1); PROTHROMBIN TIME 12.1 SEC (9.30-11.50)
[2016-06-11] MEDS: Piperacillin/Tazobactam 3.375 GM in D5W 110 ML IVPB SCH ×3 (05:06→21:33)
[2016-06-11] MEDS: metroNIDAZOLE 500mg tab GT SCH ×3 (05:10→21:33)
[2016-06-11] MEDS: Heparin 25,000u/D5W 500ml 500 ML IV SCH ×2 (07:13→22:18)
[2016-06-11] MEDS: Multivitamin 5ml Liquid GT SCH (08:18)
[2016-06-11] MEDS: Ferrous Sulfate 300 MG/5 ML UDC GT SCH (08:18)
[2016-06-11] MEDS: Ascorbic Acid 500mg tab GT SCH (08:19)
[2016-06-11] MEDS: Zinc Sulfate 220mg cap GT SCH (08:19)
--- NOTE | 2016-06-11 08:19 | Critical Care Progress Note ---
Assessment/Plan Assessment/Plan IMPRESSION: 1. Sepsis with shock. 2. Hypotension. 3. Electrolyte imbalance. 4. Hyponatremia. 5. Hyperkalemia. 6. Acute renal failure. 7. Severe protein-calorie malnutrition. 8. Chronic encephalopathy. 9. Respiratory acidosis. 10. anemia PLAN IV antibiotics ID follow up taper pressors nutrition SNF meds ventilator as is follow up care closely ICU care reviewed labs noted remains critical medications/laboratory data/nursing notes/ICU care reviewed in detail note reviewed and edited care discussed with RN and RT ICU time spent 36 minutes Critical Care - Subjective Interval Events: full code HH dropped hypotensive ROS Limited/Unobtainable: Yes Condition: critical EKG Rhythm: Sinus Rhythm Residuals: minimal Tube Feeding Tolerated: yes I&O: Intake and Output 06/10/16 06/11/16 19:00 07:00 Intake Total 2068.708 ml 2675.703 ml Balance 2068.708 ml 2675.703 ml Intake Free Water 100 ml 100 ml IV Total 1648.708 ml 1975.703 ml Tube Feeding 140 ml 600 ml Other 180 ml # Voids 355 430 Critical Care - Objective Last 24 Hour Vital Signs Date Time Temp Pulse Resp B/P Pulse Ox O2 Delivery O2 Flow Rate FiO2 06/11/16 07:13 86/55 06/11/16 07:00 102 29 86/55 100 Mechanical Ventilator 45 06/11/16 06:45 105 29 89/54 100 Mechanical Ventilator 45 06/11/16 06:33 113 22 45 06/11/16 06:30 105 29 93/52 100 Mechanical Ventilator 45 06/11/16 06:15 105 29 93/52 100 Mechanical Ventilator 45 06/11/16 06:00 105 29 99/54 100 Mechanical Ventilator 45 06/11/16 05:50 99/54 06/11/16 05:45 109 29 90/47 100 Mechanical Ventilator 45 06/11/16 05:37 110 22 45 06/11/16 05:30 110 29 80/55 100 Mechanical Ventilator 45 06/11/16 05:15 111 29 80/55 100 Mechanical Ventilator 45 06/11/16 05:06 95/57 06/11/16 05:00 108 29 95/57 100 Mechanical Ventilator 45 06/11/16 04:00 104 06/11/16 04:00 97.6 104 29 101/45 100 Mechanical Ventilator 45 06/11/16 04:00 45 06/11/16 04:00 104 29 101/45 100 Mechanical Ventilator 45 06/11/17 03:14 114 21 45 06/11/17 03:00 103 29 105/49 100 Mechanical Ventilator 45 06/11/17 02:00 100 29 97/50 100 Mechanical Ventilator 45 17 01:05 98 22 45 06/11/ 01:00 98 29 96/46 100 Mechanical Ventilator 45 06/11/16 00:00 97 06/11/16 00:00 98.0 98 29 91/47 100 Mechanical Ventilator 45 17 00:00 45 06/10/ 23:45 97 29 91/52 100 Mechanical Ventilator 45 06/10/17 23:30 99 29 95/48 100 Mechanical Ventilator 45 06/10/16 23:15 101 29 91/54 100 Mechanical Ventilator 45 06/10/17 23:05 111 22 45 06/10/ 23:00 91/47 06/10/16 23:00 97 29 107/47 100 Mechanical Ventilator 45 06/10/16 22:45 98 29 96/49 100 Mechanical Ventilator 45 06/10/17 22:30 95 29 94/49 100 Mechanical Ventilator 45 06/10/17 22:15 95 29 91/45 100 Mechanical Ventilator 45 06/10/17 22:00 106/51 06/10/ 22:00 95 29 93/53 100 Mechanical Ventilator 45 06/10/17 21:45 94 29 97/47 100 Mechanical Ventilator 45 06/10/17 21:30 93 29 106/51 100 Mechanical Ventilator 45 06/10/16 21:15 93 29 101/49 100 Mechanical Ventilator 45 17 21:00 103/50 3/17 21:00 89 29 103/50 100 Mechanical Ventilator 45 06/10/17 20:45 94 29 102/52 100 Mechanical Ventilator 45 06/10/17 20:42 91 22 45 06/10/17 20:30 90 29 98/52 100 Mechanical Ventilator 45 06/10/17 20:15 91 29 95/49 100 Mechanical Ventilator 45 06/10/17 20:00 98.0 88 29 100/52 100 Mechanical Ventilator 45 06/10/17 20:00 45 06/10/17 20:00 100/52 06/10/17 20:00 88 3/19/17 19:45 91 29 100/48 100 Mechanical Ventilator 45 3/19/17 19:30 89 29 104/51 100 Mechanical Ventilator 45 319/17 19:15 88 29 85/60 100 Mechanical Ventilator 45 319/17 19:00 90 29 105/57 100 Mechanical Ventilator 45 319/17 19:00 105/57 3/17 18:54 90 22 45 06/10/17 18:45 89 25 99/42 100 Mechanical Ventilator 45 3/17 18:30 89 23 106/50 100 Mechanical Ventilator 45 319/17 18:15 88 25 100/53 100 Mechanical Ventilator 45 3/17 18:00 88 24 100/53 100 Mechanical Ventilator 45 3/17 18:00 100/53 06/10/17 17:45 88 25 97/62 100 Mechanical Ventilator 45 06/10/17 17:30 86 26 91/50 100 Mechanical Ventilator 45 06/10/17 17:15 83 22 94/48 100 Mechanical Ventilator 45 17 17:00 86/48 17 17:00 83 24 86/48 100 Mechanical Ventilator 45 06/10/17 16:47 88 22 60 17 16:45 84 23 98/49 100 Mechanical Ventilator 45 17 16:30 90 24 98/49 100 Mechanical Ventilator 45 06/10/17 16:15 89 24 89/49 100 Mechanical Ventilator 45 17 16:00 45 17 16:00 97.4 86 24 88/49 100 Mechanical Ventilator 45 17 16:00 86 17 16:00 89/49 17 15:45 89 25 93/52 100 Mechanical Ventilator 45 06/10/17 15:30 90 24 85/40 100 Mechanical Ventilator 45 06/10/17 15:17 96/61 3/17 15:15 86 21 93/50 100 Mechanical Ventilator 45 06/10/17 15:00 85 24 93/50 100 Mechanical Ventilator 45 06/10/17 14:49 88 22 60 3/17 14:45 88 22 112/59 100 Mechanical Ventilator 45 06/10/17 14:30 87 22 105/59 100 Mechanical Ventilator 45 06/10/17 14:15 88 23 108/57 100 Mechanical Ventilator 45 3/19/17 14:00 88 21 104/53 100 Mechanical Ventilator 45 06/10/16 13:45 88 25 107/54 100 Mechanical Ventilator 45 06/10/16 13:30 86 25 102/51 100 Mechanical Ventilator 45 06/10/16 13:15 85 28 102/51 100 Mechanical Ventilator 45 06/10/16 13:10 86 22 60 06/10/16 13:00 102/51 06/10/16 13:00 81 25 105/50 100 Mechanical Ventilator 45 06/10/16 12:45 85 21 102/52 100 Mechanical Ventilator 45 06/10/16 12:30 81 22 92/53 100 Mechanical Ventilator 45 06/10/16 12:15 79 22 95/55 100 Mechanical Ventilator 45 06/10/16 12:00 94.3 82 25 120/66 100 Mechanical Ventilator 45 06/10/16 12:00 86 06/10/16 12:00 45 06/10/16 12:00 102/52 06/10/16 11:45 87 25 101/59 100 Mechanical Ventilator 45 06/10/16 11:30 87 25 95/59 100 Mechanical Ventilator 45 06/10/16 11:15 88 25 116/88 100 Mechanical Ventilator 45 06/10/16 11:00 82 25 120/66 100 Mechanical Ventilator 45 06/10/16 11:00 120/66 06/10/16 10:45 81 24 130/58 100 Mechanical Ventilator 45 06/10/16 10:45 84 22 60 06/10/16 10:00 79 23 76/40 100 Mechanical Ventilator 45 06/10/16 10:00 130/74 06/10/16 09:45 70 21 90/27 100 Mechanical Ventilator 45 06/10/16 09:30 70 21 115/57 100 Mechanical Ventilator 45 06/10/16 09:25 121/60 06/10/16 09:15 70 21 116/47 100 Mechanical Ventilator 45 06/10/16 09:03 69 22 60 06/10/16 09:00 69 21 121/60 100 Mechanical Ventilator 45 06/10/16 08:45 70 20 117/63 100 Mechanical Ventilator 100 06/10/16 08:30 68 22 115/55 100 Mechanical Ventilator 100 Labs: Laboratory Tests Test 06/10/16 11:45 06/10/16 18:00 06/10/16 20:50 06/11/16 03:20 Troponin I < 0.30 ng/mL (<=0.30) < 0.30 ng/mL (<=0.30) Prothrombin Time 11.8 SEC (9.30-11.50) H 12.1 SEC (9.30-11.50) H Prothromb Time International Ratio 1.2 (0.9-1.1) H 1.2 (0.9-1.1) H Activated Partial Thromboplast Time 35 SEC (23-33) H 124 SEC (23-33) H White Blood Count 4.8 K/UL (4.8-10.8) Red Blood Count 2.56 M/UL (4.70-6.10) L Hemoglobin 7.1 G/DL (14.2-18.0) L Hematocrit 22.8 % (42.0-52.0) L Mean Corpuscular Volume 89 FL (80-99) Mean Corpuscular Hemoglobin 27.8 PG (27.0-31.0) Mean Corpuscular Hemoglobin Concent 31.2 G/DL (32.0-36.0) L Red Cell Distribution Width 17.9 % (11.6-14.8) H Platelet Count 145 K/UL (150-450) L Mean Platelet Volume 8.9 FL (6.5-10.1) Neutrophils (%) (Auto) % (45.0-75.0) Lymphocytes (%) (Auto) % (20.0-45.0) Monocytes (%) (Auto) % (1.0-10.0) Eosinophils (%) (Auto) % (0.0-3.0) Basophils (%) (Auto) % (0.0-2.0) Sodium Level 128 mEQ/L (135-145) L Potassium Level 4.7 mEQ/L (3.4-4.9) Chloride Level 92 mEQ/L (98-107) L Carbon Dioxide Level 23 mEQ/L (20-30) Anion Gap 13 (5-15) Blood Urea Nitrogen 39 mg/dL (7-23) H Creatinine 1.0 mg/dL (0.7-1.2) Estimat Glomerular Filtration Rate mL/min (>60) Glucose Level 133 mg/dL (74-106) #H Calcium Level 6.6 mg/dL (8.6-10.2) L Total Bilirubin 0.3 mg/dL (0.0-1.2) Aspartate Amino Transf (AST/SGOT) 46 U/L (5-40) H Alanine Aminotransferase (ALT/SGPT) 31 U/L (3-41) Alkaline Phosphatase 300 U/L (40-129) H Total Protein 4.4 g/dL (6.6-8.7) L Albumin 0.8 g/dL (3.5-5.2) L Globulin 3.6 g/dL Albumin/Globulin Ratio 0.2 (1.0-2.7) L Objective: GENERAL: Very contracted individual, poorly responsive. HEENT: Fairly negative. Mild temporal wasting noted. Oropharynx is dry. NECK: Supple. Carotids 2+. LUNGS: Coarse breath sounds. Moderate air entry. CARDIAC: Normal S1 and S2. Overall, with regular rate and rhythm. Systolic murmur at the left parasternal border. No rubs or gallops. ABDOMEN: Soft, nontender, and nondistended. G-tube in place. No hepatosplenomegaly. EXTREMITIES: No cyanosis or clubbing noted contractures. NEUROLOGIC: Poorly responsive. Micro: Microbiology Date/Time Source Procedure Growth Status 06/09/16 12:00 Blood Blood Culture - Preliminary Staphylococcus Aureus Resulted 06/09/16 11:50 Blood Blood Culture - Preliminary Staphylococcus Aureus Resulted 06/10/16 03:20 Sacral Wound Gram Stain - Final Resulted 06/10/16 03:20 Sacral Wound Wound Culture Pending Resulted Accucheck: 132 JACKIE DANIEL Jun 11, 2016 08:19
--- NOTE | 2016-06-11 11:49 | Infectious Diseases Prog Note ---
Assessment/Plan Assessment/Plan A; Staph aureus sepsis s/p code blue Pneumonia Septic shock DVT of legs VDRF Pressure ulcers Anemia hyponatremia P; Continue Vancomycin & Zosyn Change PICC line Will f/u cultures Subjective ROS Limited/Unobtainable: Yes Cardiovascular: Reports: other - hypotensive on Levophed Allergies: Coded Allergies: No Known Allergies (Unverified , 06/09/16) Objective Vital Signs Last 24 Hour Vital Signs Date Time Temp Pulse Resp B/P Pulse Ox O2 Delivery O2 Flow Rate FiO2 06/11/16 10:35 101 20 45 06/11/16 09:30 101 24 74/42 100 Mechanical Ventilator 45 06/11/16 09:15 101 24 82/48 100 Mechanical Ventilator 45 06/11/16 09:00 100 23 81/45 100 Mechanical Ventilator 45 06/11/16 09:00 82/48 06/11/16 08:45 101 26 75/43 100 Mechanical Ventilator 45 06/11/16 08:36 109 23 45 06/11/16 08:30 103 26 78/49 100 Mechanical Ventilator 45 06/11/16 08:19 82/46 06/11/16 08:15 104 23 85/44 100 Mechanical Ventilator 45 06/11/16 08:00 97.7 105 22 82/46 100 Mechanical Ventilator 45 06/11/16 08:00 45 06/11/16 08:00 106 06/11/16 07:45 105 25 91/50 100 Mechanical Ventilator 45 06/11/16 07:30 105 26 84/48 100 Mechanical Ventilator 45 06/11/16 07:15 105 22 83/48 100 Mechanical Ventilator 45 06/11/16 07:13 86/55 06/11/16 07:00 102 29 86/55 100 Mechanical Ventilator 45 06/11/16 06:45 105 29 89/54 100 Mechanical Ventilator 45 06/11/16 06:33 113 22 45 06/11/16 06:30 105 29 93/52 100 Mechanical Ventilator 45 06/11/16 06:15 105 29 93/52 100 Mechanical Ventilator 45 06/11/16 06:00 105 29 99/54 100 Mechanical Ventilator 45 06/11/16 05:50 99/54 06/11/16 05:45 109 29 90/47 100 Mechanical Ventilator 45 06/11/16 05:37 110 22 45 06/11/16 05:30 110 29 80/55 100 Mechanical Ventilator 45 3/17 05:15 111 29 80/55 100 Mechanical Ventilator 45 06/11/17 05:06 95/57 3 05:00 108 29 95/57 100 Mechanical Ventilator 45 06/11/17 04:00 104 317 04:00 97.6 104 29 101/45 100 Mechanical Ventilator 45 06/11/17 04:00 45 06/11/16 04:00 104 29 101/45 100 Mechanical Ventilator 45 17 03:14 114 21 45 06/11/ 03:00 103 29 105/49 100 Mechanical Ventilator 45 06/11/ 02:00 100 29 97/50 100 Mechanical Ventilator 45 06/11/16 01:05 98 22 45 06/11/16 01:00 98 29 96/46 100 Mechanical Ventilator 45 06/11/16 00:00 97 06/11/16 00:00 98.0 98 29 91/47 100 Mechanical Ventilator 45 06/11/16 00:00 45 06/10/16 23:45 97 29 91/52 100 Mechanical Ventilator 45 17 23:30 99 29 95/48 100 Mechanical Ventilator 45 06/10/17 23:15 101 29 91/54 100 Mechanical Ventilator 45 06/10/17 23:05 111 22 45 06/10/ 23:00 91/47 06/10/ 23:00 97 29 107/47 100 Mechanical Ventilator 45 06/10/17 22:45 98 29 96/49 100 Mechanical Ventilator 45 06/10/17 22:30 95 29 94/49 100 Mechanical Ventilator 45 06/10/17 22:15 95 29 91/45 100 Mechanical Ventilator 45 06/10/17 22:00 106/51 3/17 22:00 95 29 93/53 100 Mechanical Ventilator 45 06/10/17 21:45 94 29 97/47 100 Mechanical Ventilator 45 06/10/17 21:30 93 29 106/51 100 Mechanical Ventilator 45 3//17 21:15 93 29 101/49 100 Mechanical Ventilator 45 3/19/17 21:00 103/50 3//17 21:00 89 29 103/50 100 Mechanical Ventilator 45 3//17 20:45 94 29 102/52 100 Mechanical Ventilator 45 06/10/17 20:42 91 22 45 3/19/17 20:30 90 29 98/52 100 Mechanical Ventilator 45 3/19/17 20:15 91 29 95/49 100 Mechanical Ventilator 45 3/19/17 20:00 98.0 88 29 100/52 100 Mechanical Ventilator 45 3/19/17 20:00 45 3/19/17 20:00 100/52 3/19/17 20:00 88 3/19/17 19:45 91 29 100/48 100 Mechanical Ventilator 45 3/19/17 19:30 89 29 104/51 100 Mechanical Ventilator 45 3/19/17 19:15 88 29 85/60 100 Mechanical Ventilator 45 3/19/17 19:00 90 29 105/57 100 Mechanical Ventilator 45 3/19/17 19:00 105/57 3/19/17 18:54 90 22 45 3/19/17 18:45 89 25 99/42 100 Mechanical Ventilator 45 3/19/17 18:30 89 23 106/50 100 Mechanical Ventilator 45 3/19/17 18:15 88 25 100/53 100 Mechanical Ventilator 45 3/19/17 18:00 88 24 100/53 100 Mechanical Ventilator 45 319/17 18:00 100/53 3/19/17 17:45 88 25 97/62 100 Mechanical Ventilator 45 3/19/17 17:30 86 26 91/50 100 Mechanical Ventilator 45 3/19/17 17:15 83 22 94/48 100 Mechanical Ventilator 45 3/19/17 17:00 86/48 319/17 17:00 83 24 86/48 100 Mechanical Ventilator 45 3/19/17 16:47 88 22 60 3/17 16:45 84 23 98/49 100 Mechanical Ventilator 45 319/17 16:30 90 24 98/49 100 Mechanical Ventilator 45 319/17 16:15 89 24 89/49 100 Mechanical Ventilator 45 319/17 16:00 45 319/17 16:00 97.4 86 24 88/49 100 Mechanical Ventilator 45 3/19/17 16:00 86 3/19/17 16:00 89/49 3/17 15:45 89 25 93/52 100 Mechanical Ventilator 45 3/19/17 15:30 90 24 85/40 100 Mechanical Ventilator 45 3/19/17 15:17 96/61 319/17 15:15 86 21 93/50 100 Mechanical Ventilator 45 3/19/17 15:00 85 24 93/50 100 Mechanical Ventilator 45 06/10/16 14:49 88 22 60 06/10/16 14:45 88 22 112/59 100 Mechanical Ventilator 45 06/10/16 14:30 87 22 105/59 100 Mechanical Ventilator 45 06/10/16 14:15 88 23 108/57 100 Mechanical Ventilator 45 06/10/16 14:00 88 21 104/53 100 Mechanical Ventilator 45 06/10/16 13:45 88 25 107/54 100 Mechanical Ventilator 45 06/10/16 13:30 86 25 102/51 100 Mechanical Ventilator 45 06/10/16 13:15 85 28 102/51 100 Mechanical Ventilator 45 06/10/16 13:10 86 22 60 06/10/16 13:00 102/51 06/10/16 13:00 81 25 105/50 100 Mechanical Ventilator 45 06/10/16 12:45 85 21 102/52 100 Mechanical Ventilator 45 06/10/16 12:30 81 22 92/53 100 Mechanical Ventilator 45 06/10/16 12:15 79 22 95/55 100 Mechanical Ventilator 45 06/10/16 12:00 94.3 82 25 120/66 100 Mechanical Ventilator 45 06/10/16 12:00 86 06/10/16 12:00 45 06/10/16 12:00 102/52 06/10/16 11:45 87 25 101/59 100 Mechanical Ventilator 45 Height (Feet): 5 Height (Inches): 8.00 Weight (Pounds): 138 HEENT: status post trach Respiratory/Chest: lungs clear, other - on ventilator Cardiovascular: tachycardia Abdomen: soft, non tender, other - GT feeding Extremities: other - Left arm PICC line, generalized edema Neurologic/Psychiatric: unresponsiveness Microbiology Date/Time Source Procedure Growth Status 06/09/16 12:00 Blood Blood Culture - Preliminary Staphylococcus Aureus Resulted 06/09/16 11:50 Blood Blood Culture - Preliminary Staphylococcus Aureus Resulted 06/10/16 05:00 Sacral Wound Gram Stain - Final Resulted 06/10/16 05:00 Sacral Wound Wound Culture Pending Resulted 06/10/16 03:20 Sacral Wound Gram Stain - Final Resulted 06/10/16 03:20 Wound Culture - Preliminary Gram Negative Bacillus 1 Resulted Laboratory Tests Test 06/10/16 11:45 06/10/16 18:00 06/10/16 20:50 06/11/16 03:20 Troponin I < 0.30 ng/mL (<=0.30) < 0.30 ng/mL (<=0.30) Prothrombin Time 11.8 SEC (9.30-11.50) H 12.1 SEC (9.30-11.50) H Prothromb Time International Ratio 1.2 (0.9-1.1) H 1.2 (0.9-1.1) H Activated Partial Thromboplast Time 35 SEC (23-33) H 124 SEC (23-33) H White Blood Count 4.8 K/UL (4.8-10.8) Red Blood Count 2.56 M/UL (4.70-6.10) L Hemoglobin 7.1 G/DL (14.2-18.0) L Hematocrit 22.8 % (42.0-52.0) L Mean Corpuscular Volume 89 FL (80-99) Mean Corpuscular Hemoglobin 27.8 PG (27.0-31.0) Mean Corpuscular Hemoglobin Concent 31.2 G/DL (32.0-36.0) L Red Cell Distribution Width 17.9 % (11.6-14.8) H Platelet Count 145 K/UL (150-450) L Mean Platelet Volume 8.9 FL (6.5-10.1) Neutrophils (%) (Auto) % (45.0-75.0) Lymphocytes (%) (Auto) % (20.0-45.0) Monocytes (%) (Auto) % (1.0-10.0) Eosinophils (%) (Auto) % (0.0-3.0) Basophils (%) (Auto) % (0.0-2.0) Sodium Level 128 mEQ/L (135-145) L Potassium Level 4.7 mEQ/L (3.4-4.9) Chloride Level 92 mEQ/L (98-107) L Carbon Dioxide Level 23 mEQ/L (20-30) Anion Gap 13 (5-15) Blood Urea Nitrogen 39 mg/dL (7-23) H Creatinine 1.0 mg/dL (0.7-1.2) Estimat Glomerular Filtration Rate mL/min (>60) Glucose Level 133 mg/dL (74-106) #H Calcium Level 6.6 mg/dL (8.6-10.2) L Total Bilirubin 0.3 mg/dL (0.0-1.2) Aspartate Amino Transf (AST/SGOT) 46 U/L (5-40) H Alanine Aminotransferase (ALT/SGPT) 31 U/L (3-41) Alkaline Phosphatase 300 U/L (40-129) H Total Protein 4.4 g/dL (6.6-8.7) L Albumin 0.8 g/dL (3.5-5.2) L Globulin 3.6 g/dL Albumin/Globulin Ratio 0.2 (1.0-2.7) L Current Medications Medications (Trade) Dose Ordered Sig/Lulu Route PRN Reason Start Time Stop Time Status Last Admin Dose Admin Acetaminophen (Tylenol) 650 mg Q6H PRN GT Mild Pain/Temp > 100.5 06/10/16 07:45 07/10/16 07:44 Ascorbic Acid (Vitamin C) 500 mg DAILY GT 06/10/16 09:00 07/10/16 08:59 06/11/16 08:19 Dextrose (Dextrose 50%) 50 ml PRN PRN IV Per rx protocol 06/10/16 08:30 07/10/16 08:29 06/10/16 12:45 Dextrose/Sodium Chloride (D5ns) 1,000 ml @ 125 mls/hr Q8H IV 06/10/16 09:00 07/10/16 08:59 06/11/16 08:19 Ferrous Sulfate (Feosol) 300 mg DAILY GT 06/10/16 09:00 07/10/16 08:59 06/11/16 08:18 Heparin Sodium/ Dextrose (Heparin) 500 ml @ 18.779 mls/ hr adjust per protocol IV 06/11/16 05:42 07/10/16 20:44 06/11/16 07:13 Metronidazole 500 mg 500 mg Q8HR GT 06/10/16 06:00 06/17/16 05:59 06/11/16 05:10 Multivitamins (Multivitamin Hexavitamin) 5 ml DAILY GT 06/10/16 09:00 07/10/16 08:59 06/11/16 08:18 Norepinephrine Bitartrate/ Dextrose (Levophed/D5W) 250 ml @ 0 mls/hr Q24H IV 06/10/16 03:15 07/10/16 03:14 06/10/16 15:17 Pantoprazole 40 mg 40 mg DAILY ORAL 06/10/16 09:00 07/10/16 08:59 06/11/16 08:19 Piperacillin Sod/ Tazobactam Sod/ Dextrose (Zosyn/D5W) 110 ml @ 27.5 mls/hr Q8H IVPB 06/10/16 06:00 06/17/16 05:59 06/11/16 05:06 Sennosides (Senokot) 8.6 mg DAILY GT 06/10/16 09:00 07/10/16 08:59 06/11/16 08:19 Vancomycin HCl (Vanco rx to dose) 1 ea DAILY MISC 06/10/16 09:00 06/17/16 08:59 Vancomycin HCl 750 mg/Dextrose 275 ml @ 183.708 mls/hr Q12H IVPB 06/10/16 04:00 06/15/16 03:59 06/11/16 03:44 Zinc Sulfate 220 mg 220 mg DAILY GT 06/10/16 09:00 07/10/16 08:59 06/11/16 08:19 MATT LARSON Jun 11, 2016 11:49
[2016-06-11] MEDS ORDERED: Heparin 2000 units/Ns 1000ml INJ PRN (12:00)
[2016-06-11] MEDS ORDERED: Lidocaine 1% Plain 30 ml INJ PRN (12:00)
[2016-06-11] MEDS ORDERED: Sodium Bicarbonate 8.4% 50ml Inj IV PRN (12:00)
--- NOTE | 2016-06-11 13:31 | General Progress Note ---
Assessment/Plan Problem List: (1) DVT of axillary vein, acute ICD Codes: I82.A19 - Acute embolism and thrombosis of unspecified axillary vein SNOMED: 873851624 (2) Cardiac arrest ICD Codes: I46.9 - Cardiac arrest, cause unspecified SNOMED: 085109582 (3) Sepsis ICD Codes: A41.9 - Sepsis, unspecified organism SNOMED: 79750702 Qualifiers: Qualified Codes: A41.9 - Sepsis, unspecified organism (4) Acute and chronic respiratory failure ([id number]) ICD Codes: J96.20 - Acute and chronic respiratory failure, unspecified whether with hypoxia or hypercapnia SNOMED: 91563767, 63395822 Qualifiers: Qualified Codes: J96.20 - Acute and chronic respiratory failure, unspecified whether with hypoxia or hypercapnia (5) Pneumonia ICD Codes: J18.9 - Pneumonia, unspecified organism SNOMED: 455283762 Qualifiers: Qualified Codes: J18.9 - Pneumonia, unspecified organism (6) Anemia ICD Codes: D64.9 - Anemia, unspecified SNOMED: 755403951 Qualifiers: Qualified Codes: D64.9 - Anemia, unspecified Status: stable Assessment/Plan iv abx follow up cultures change picc heparin drip check stool ob/monitor for bleeding vent support resp rx ivf/gt feeds critical and guarded Subjective ROS Limited/Unobtainable: Yes Constitutional: Reports: malaise, weakness HEENT: Reports: no symptoms Cardiovascular: Reports: no symptoms Respiratory: Reports: shortness of breath Gastrointestinal/Abdominal: Reports: difficulty swallowing Genitourinary: Reports: no symptoms Neurologic/Psychiatric: Reports: pre-existing deficit Endocrine: Reports: no symptoms Hematologic/Lymphatic: Reports: anemia Allergies: Coded Allergies: No Known Allergies (Unverified , 06/09/16) All Systems: reviewed and negative except above Subjective remains on pressors. +dvt. on heparin drip. decreased h/h. no bleeding noted. + blood cultures Objective Last 24 Hour Vital Signs Date Time Temp Pulse Resp B/P Pulse Ox O2 Delivery O2 Flow Rate FiO2 06/11/16 13:00 85/48 06/11/16 12:45 97 23 90/52 100 Mechanical Ventilator 45 06/11/16 12:34 98 22 45 06/11/16 12:30 98 24 85/51 100 Mechanical Ventilator 45 06/11/16 12:15 99 23 90/49 100 Mechanical Ventilator 45 06/11/16 12:00 45 06/11/16 12:00 97 06/11/16 12:00 97.4 99 22 87/48 100 Mechanical Ventilator 45 06/11/16 12:00 90/49 06/11/16 11:45 97 24 87/50 100 Mechanical Ventilator 45 06/11/16 11:30 97 22 86/46 100 Mechanical Ventilator 45 06/11/16 11:15 96 23 69/44 100 Mechanical Ventilator 45 06/11/16 11:00 103 24 81/43 100 Mechanical Ventilator 45 06/11/16 10:45 103 24 81/43 100 Mechanical Ventilator 45 06/11/16 10:35 101 20 45 06/11/16 10:30 102 24 98/59 100 Mechanical Ventilator 45 06/11/16 10:15 101 26 80/49 100 Mechanical Ventilator 45 06/11/16 10:00 103 25 77/45 100 Mechanical Ventilator 45 06/11/16 09:45 99 22 77/41 100 Mechanical Ventilator 45 06/11/16 09:30 101 24 74/42 100 Mechanical Ventilator 45 06/11/16 09:15 101 24 82/48 100 Mechanical Ventilator 45 06/11/16 09:00 100 23 81/45 100 Mechanical Ventilator 45 06/11/16 09:00 82/48 06/11/16 08:45 101 26 75/43 100 Mechanical Ventilator 45 06/11/16 08:36 109 23 45 06/11/16 08:30 103 26 78/49 100 Mechanical Ventilator 45 06/11/16 08:19 82/46 06/11/16 08:15 104 23 85/44 100 Mechanical Ventilator 45 06/11/16 08:00 97.7 105 22 82/46 100 Mechanical Ventilator 45 06/11/16 08:00 45 06/11/16 08:00 106 06/11/16 07:45 105 25 91/50 100 Mechanical Ventilator 45 06/11/16 07:30 105 26 84/48 100 Mechanical Ventilator 45 06/11/16 07:15 105 22 83/48 100 Mechanical Ventilator 45 06/11/16 07:13 86/55 06/11/16 07:00 102 29 86/55 100 Mechanical Ventilator 45 06/11/16 06:45 105 29 89/54 100 Mechanical Ventilator 45 06/11/16 06:33 113 22 45 06/11/16 06:30 105 29 93/52 100 Mechanical Ventilator 45 17 06:15 105 29 93/52 100 Mechanical Ventilator 45 06/11/16 06:00 105 29 99/54 100 Mechanical Ventilator 45 17 05:50 99/54 06/11/16 05:45 109 29 90/47 100 Mechanical Ventilator 45 06/11/16 05:37 110 22 45 06/11/16 05:30 110 29 80/55 100 Mechanical Ventilator 45 06/11/16 05:15 111 29 80/55 100 Mechanical Ventilator 45 06/11/16 05:06 95/57 06/11/16 05:00 108 29 95/57 100 Mechanical Ventilator 45 06/11/16 04:00 104 06/11/16 04:00 97.6 104 29 101/45 100 Mechanical Ventilator 45 06/11/16 04:00 45 06/11/16 04:00 104 29 101/45 100 Mechanical Ventilator 45 06/11/16 03:14 114 21 45 06/11/16 03:00 103 29 105/49 100 Mechanical Ventilator 45 06/11/16 02:00 100 29 97/50 100 Mechanical Ventilator 45 06/11/16 01:05 98 22 45 06/11/16 01:00 98 29 96/46 100 Mechanical Ventilator 45 06/11/16 00:00 97 06/11/16 00:00 98.0 98 29 91/47 100 Mechanical Ventilator 45 06/11/16 00:00 45 06/10/16 23:45 97 29 91/52 100 Mechanical Ventilator 45 06/10/16 23:30 99 29 95/48 100 Mechanical Ventilator 45 06/10/16 23:15 101 29 91/54 100 Mechanical Ventilator 45 06/10/16 23:05 111 22 45 06/10/16 23:00 91/47 06/10/16 23:00 97 29 107/47 100 Mechanical Ventilator 45 06/10/16 22:45 98 29 96/49 100 Mechanical Ventilator 45 06/10/17 22:30 95 29 94/49 100 Mechanical Ventilator 45 06/10/17 22:15 95 29 91/45 100 Mechanical Ventilator 45 06/10/17 22:00 106/51 06/10/16 22:00 95 29 93/53 100 Mechanical Ventilator 45 3/19/17 21:45 94 29 97/47 100 Mechanical Ventilator 45 3/19/17 21:30 93 29 106/51 100 Mechanical Ventilator 45 3/19/17 21:15 93 29 101/49 100 Mechanical Ventilator 45 3/19/17 21:00 103/50 3/19/17 21:00 89 29 103/50 100 Mechanical Ventilator 45 3/19/17 20:45 94 29 102/52 100 Mechanical Ventilator 45 3/19/17 20:42 91 22 45 3/19/17 20:30 90 29 98/52 100 Mechanical Ventilator 45 3/19/17 20:15 91 29 95/49 100 Mechanical Ventilator 45 3/19/17 20:00 98.0 88 29 100/52 100 Mechanical Ventilator 45 3/19/17 20:00 45 3/19/17 20:00 100/52 3/19/17 20:00 88 3/19/17 19:45 91 29 100/48 100 Mechanical Ventilator 45 3/19/17 19:30 89 29 104/51 100 Mechanical Ventilator 45 3/19/17 19:15 88 29 85/60 100 Mechanical Ventilator 45 3/19/17 19:00 90 29 105/57 100 Mechanical Ventilator 45 3/19/17 19:00 105/57 3/19/17 18:54 90 22 45 3/19/17 18:45 89 25 99/42 100 Mechanical Ventilator 45 3/19/17 18:30 89 23 106/50 100 Mechanical Ventilator 45 3/19/17 18:15 88 25 100/53 100 Mechanical Ventilator 45 3/19/17 18:00 88 24 100/53 100 Mechanical Ventilator 45 3/19/17 18:00 100/53 3/19/17 17:45 88 25 97/62 100 Mechanical Ventilator 45 3/19/17 17:30 86 26 91/50 100 Mechanical Ventilator 45 3/19/17 17:15 83 22 94/48 100 Mechanical Ventilator 45 3/19/17 17:00 86/48 3/19/17 17:00 83 24 86/48 100 Mechanical Ventilator 45 3/19/17 16:47 88 22 60 3/19/17 16:45 84 23 98/49 100 Mechanical Ventilator 45 3/19/17 16:30 90 24 98/49 100 Mechanical Ventilator 45 3/19/17 16:15 89 24 89/49 100 Mechanical Ventilator 45 3/19/17 16:00 45 06/10/16 16:00 97.4 86 24 88/49 100 Mechanical Ventilator 45 06/10/16 16:00 86 06/10/16 16:00 89/49 06/10/16 15:45 89 25 93/52 100 Mechanical Ventilator 45 06/10/16 15:30 90 24 85/40 100 Mechanical Ventilator 45 06/10/16 15:17 96/61 06/10/16 15:15 86 21 93/50 100 Mechanical Ventilator 45 06/10/16 15:00 85 24 93/50 100 Mechanical Ventilator 45 06/10/16 14:49 88 22 60 06/10/16 14:45 88 22 112/59 100 Mechanical Ventilator 45 06/10/16 14:30 87 22 105/59 100 Mechanical Ventilator 45 06/10/16 14:15 88 23 108/57 100 Mechanical Ventilator 45 06/10/16 14:00 88 21 104/53 100 Mechanical Ventilator 45 06/10/16 13:45 88 25 107/54 100 Mechanical Ventilator 45 06/10/16 13:30 86 25 102/51 100 Mechanical Ventilator 45 Intake and Output 06/10/16 06/11/16 19:00 07:00 Intake Total 2068.708 ml 2675.703 ml Balance 2068.708 ml 2675.703 ml Intake Free Water 100 ml 100 ml IV Total 1648.708 ml 1975.703 ml Tube Feeding 140 ml 600 ml Other 180 ml # Voids 355 430 Laboratory Tests 06/10/16 18:00: Troponin I < 0.30 06/10/16 20:50: Prothrombin Time 11.8H, Prothromb Time International Ratio 1.2H, Activated Partial Thromboplast Time 35H 06/11/16 03:20: Prothrombin Time 12.1H, Prothromb Time International Ratio 1.2H, Activated Partial Thromboplast Time 124H, White Blood Count 4.8, Red Blood Count 2.56L, Hemoglobin 7.1L, Hematocrit 22.8L, Mean Corpuscular Volume 89, Mean Corpuscular Hemoglobin 27.8, Mean Corpuscular Hemoglobin Concent 31.2L, Red Cell Distribution Width 17.9H, Platelet Count 145L, Mean Platelet Volume 8.9, Neutrophils (%) (Auto) , Lymphocytes (%) (Auto) , Monocytes (%) (Auto) , Eosinophils (%) (Auto) , Basophils (%) (Auto) , Sodium Level 128L, Potassium Level 4.7, Chloride Level 92L, Carbon Dioxide Level 23, Anion Gap 13, Blood Urea Nitrogen 39H, Creatinine 1.0, Estimat Glomerular Filtration Rate , Glucose Level 133#H, Calcium Level 6.6L, Total Bilirubin 0.3, Aspartate Amino Transf ( AST/SGOT) 46H, Alanine Aminotransferase (ALT/SGPT) 31, Alkaline Phosphatase 300H , Total Protein 4.4L, Albumin 0.8L, Globulin 3.6, Albumin/Globulin Ratio 0.2L 06/11/16 12:50: Activated Partial Thromboplast Time [Pending] Height (Feet): 5 Height (Inches): 8.00 Weight (Pounds): 138 General Appearance: WD/WN, lethargic, thin Neck: supple Cardiovascular: normal rate Respiratory/Chest: rhonchi - bilaterally, expiratory wheezing Abdomen: normal bowel sounds, non tender, soft, no organomegaly Edema: no edema noted Arm (L), no edema noted Arm (R), no edema noted Leg (L), no edema noted Leg (R), no edema noted Pedal (L), no edema noted Pedal (R), no edema noted Generalized Neurologic: unresponsive MYLES AGUIRRE Jun 11, 2016 13:31
[2016-06-11] MEDS: Sodium Chloride 1gm Tab ORAL SCH ×2 (14:22→18:20)
[2016-06-12] VITALS (62 sets, daily range): BP systolic 56–118; BP diastolic 22–67
[2016-06-12] MEDS: D5NS 1,000 ML IV SCH ×2 (02:59→17:00)
[2016-06-12] MEDS: metroNIDAZOLE 500mg tab GT SCH (05:23)
[2016-06-12] MEDS: Piperacillin/Tazobactam 3.375 GM in D5W 110 ML IVPB SCH ×3 (05:23→22:11)
[2016-06-12 06:22] LABS: BASOPHILS % (AUTO) 0.8 % (0.0-2.0); EOSINOPHILS % (AUTO) 0.3 % (0.0-3.0); MEAN CORPUSCULAR HEMOGLOBIN 28.8 PG (27.0-31.0); MEAN CORPUSCULAR HGB CONC 31.9 G/DL (32.0-36.0); MEAN CORPUSCULAR VOLUME 90 FL (80-99); MEAN PLATELET VOLUME 10.2 FL (6.5-10.1); MONOCYTES % (AUTO) 7.3 % (1.0-10.0); NEUTROPHILS % (AUTO) 83.6 % (45.0-75.0); PLATELET COUNT 114 K/UL (150-450); RED BLOOD COUNT 3.39 M/UL (4.70-6.10); RED CELL DISTRIBUTION WIDTH 16.5 % (11.6-14.8); WHITE BLOOD COUNT 6.2 K/UL (4.8-10.8)
[2016-06-12 06:37] LABS: ALANINE AMINOTRANSFERASE 25 U/L (3-41); ALBUMIN/GLOBULIN RATIO 0.2 (1.0-2.7); ANION GAP 14 (5-15); ASPARTATE AMINO TRANSFERASE 36 U/L (5-40); CALCIUM 6.7 mg/dL (8.6-10.2); CARBON DIOXIDE 21 mEQ/L (20-30); CHLORIDE 90 mEQ/L (98-107); CREATININE 1.3 mg/dL (0.7-1.2); HEMOLYSIS 8; POTASSIUM 4.7 mEQ/L (3.4-4.9); SODIUM 125 mEQ/L (135-145); TOTAL PROTEIN 4.7 g/dL (6.6-8.7)
[2016-06-12] MEDS ORDERED: DuoNeb 0.5-3(2.5)mg/3ml neb HHN PRN (07:45)
[2016-06-12] MEDS: Multivitamin 5ml Liquid GT SCH (08:58)
[2016-06-12] MEDS: Ascorbic Acid 500mg tab GT SCH (08:58)
[2016-06-12] MEDS: Sodium Chloride 1gm Tab ORAL SCH (08:58)
[2016-06-12] MEDS: Ferrous Sulfate 300 MG/5 ML UDC GT SCH (08:58)
[2016-06-12] MEDS: Zinc Sulfate 220mg cap GT SCH (09:16)
--- NOTE | 2016-06-12 09:20 | General Progress Note ---
Assessment/Plan Problem List: (1) DVT of axillary vein, acute ICD Codes: I82.A19 - Acute embolism and thrombosis of unspecified axillary vein SNOMED: 202997879 (2) Cardiac arrest ICD Codes: I46.9 - Cardiac arrest, cause unspecified SNOMED: 405364368 (3) Sepsis ICD Codes: A41.9 - Sepsis, unspecified organism SNOMED: 22471966 Qualifiers: Qualified Codes: A41.9 - Sepsis, unspecified organism (4) Acute and chronic respiratory failure ([id number]) ICD Codes: J96.20 - Acute and chronic respiratory failure, unspecified whether with hypoxia or hypercapnia SNOMED: 10033465, [id number] Qualifiers: Qualified Codes: J96.20 - Acute and chronic respiratory failure, unspecified whether with hypoxia or hypercapnia (5) Pneumonia ICD Codes: J18.9 - Pneumonia, unspecified organism SNOMED: 413345389 Qualifiers: Qualified Codes: J18.9 - Pneumonia, unspecified organism (6) Anemia ICD Codes: D64.9 - Anemia, unspecified SNOMED: 370494945 Qualifiers: Qualified Codes: D64.9 - Anemia, unspecified Status: stable, progressing Assessment/Plan iv abx follow up cultures change picc- needed emergently- likely infected and contributing to pts sepsis heparin drip pressors monitor uop bolus fluids check stool ob/monitor for bleeding vent support resp rx ivf/gt feeds critical and guarded Subjective ROS Limited/Unobtainable: Yes Constitutional: Reports: malaise, weakness HEENT: Reports: no symptoms Cardiovascular: Reports: no symptoms Respiratory: Reports: shortness of breath Gastrointestinal/Abdominal: Reports: difficulty swallowing Genitourinary: Reports: no symptoms Neurologic/Psychiatric: Reports: pre-existing deficit Endocrine: Reports: no symptoms Hematologic/Lymphatic: Reports: anemia Allergies: Coded Allergies: No Known Allergies (Unverified , 06/09/16) All Systems: reviewed and negative except above Subjective remains on pressors. +dvt. on heparin drip. poor uop. bp remains on the low side. positive cultures noted. mostly unresponsive Objective Last 24 Hour Vital Signs Date Time Temp Pulse Resp B/P Pulse Ox O2 Delivery O2 Flow Rate FiO2 06/12/16 07:06 106/58 06/12/16 07:00 98 21 106/58 100 Mechanical Ventilator 45 06/12/16 06:46 99 22 40 06/12/16 06:45 99 21 103/64 100 Mechanical Ventilator 45 06/12/16 06:30 99 21 106/64 100 Mechanical Ventilator 45 06/12/16 06:15 100 21 83/67 100 Mechanical Ventilator 45 06/12/16 06:00 99 21 83/67 100 Mechanical Ventilator 45 06/12/16 06:00 83/67 06/12/16 05:45 99 21 87/56 100 Mechanical Ventilator 45 06/12/16 05:30 100 21 83/62 100 Mechanical Ventilator 45 06/12/16 05:15 101 21 89/62 100 Mechanical Ventilator 45 06/12/16 05:00 100 21 99/61 100 Mechanical Ventilator 45 06/12/16 05:00 99/61 06/12/16 04:45 99 21 100/61 100 Mechanical Ventilator 45 06/12/16 04:31 96 22 40 06/12/16 04:30 98 21 56/44 100 Mechanical Ventilator 45 06/12/16 04:15 96 21 56/44 100 Mechanical Ventilator 45 06/12/16 04:00 40 06/12/16 04:00 96.5 95 21 69/38 100 Mechanical Ventilator 45 06/12/16 04:00 69/44 06/12/16 04:00 100 06/12/16 03:45 93 21 96/44 100 Mechanical Ventilator 45 06/12/16 03:30 96 21 85/43 100 Mechanical Ventilator 45 06/12/16 03:15 98 21 85/46 100 Mechanical Ventilator 45 06/12/16 03:02 99 22 40 06/12/16 03:00 97 21 97/45 100 Mechanical Ventilator 45 06/12/16 03:00 97/45 06/12/16 02:45 97 21 102/43 100 Mechanical Ventilator 45 06/12/16 02:30 97 21 97/45 100 Mechanical Ventilator 45 06/12/16 02:15 96 21 94/45 100 Mechanical Ventilator 45 06/12/16 02:00 93/43 06/12/16 02:00 96 21 86/42 100 Mechanical Ventilator 45 06/12/16 01:45 96 21 99/45 100 Mechanical Ventilator 45 06/12/16 01:30 97 21 90/46 100 Mechanical Ventilator 45 06/12/16 01:15 95 21 99/45 100 Mechanical Ventilator 45 06/12/16 01:00 95 21 98/42 100 Mechanical Ventilator 45 06/12/16 01:00 98/42 06/12/16 00:45 95 21 97/46 100 Mechanical Ventilator 45 06/12/16 00:41 98 22 40 06/12/16 00:30 94 21 100/49 100 Mechanical Ventilator 45 06/12/16 00:15 94 21 100/49 100 Mechanical Ventilator 45 06/12/16 00:00 97.8 92 21 94/45 100 Mechanical Ventilator 45 06/12/16 00:00 40 06/12/16 00:00 92 06/11/16 23:45 92 21 102/46 100 Mechanical Ventilator 45 06/11/16 23:30 94 21 85/40 100 Mechanical Ventilator 45 06/11/16 23:15 94 21 97/42 100 Mechanical Ventilator 45 06/11/16 23:00 93 21 97/42 100 Mechanical Ventilator 45 06/11/16 23:00 101/47 06/11/16 22:45 95 23 101/47 100 Mechanical Ventilator 45 06/11/16 22:39 95 22 40 06/11/16 22:30 95 20 90/42 100 Mechanical Ventilator 45 06/11/16 22:15 95 22 98/44 100 Mechanical Ventilator 45 06/11/16 22:00 95 22 94/41 100 Mechanical Ventilator 45 06/11/16 22:00 98/44 06/11/16 21:45 97 18 98/46 100 Mechanical Ventilator 45 06/11/16 21:30 95 18 98/45 98 Mechanical Ventilator 45 06/11/16 21:15 93 21 94/45 100 Mechanical Ventilator 45 06/11/16 21:00 94 20 82/44 100 Mechanical Ventilator 45 06/11/16 21:00 87/44 06/11/16 20:58 96 22 40 06/11/16 20:45 97 18 88/40 100 Mechanical Ventilator 45 06/11/16 20:30 95 21 96/42 100 Mechanical Ventilator 45 06/11/16 20:26 97/46 06/11/16 20:15 98.4 96 21 97/46 100 Mechanical Ventilator 45 06/11/16 20:00 95 06/11/16 20:00 96 18 96/47 100 Mechanical Ventilator 45 06/11/16 20:00 96/46 06/11/16 20:00 45 3/20/17 19:30 97 18 85/44 100 Mechanical Ventilator 45 3/20/17 19:15 96 20 92/47 99 Mechanical Ventilator 45 3/20/17 19:10 101 22 40 3/20/17 19:00 84/43 3/20/17 19:00 94 18 84/43 100 Mechanical Ventilator 45 /20/17 18:45 96 21 93/46 100 Mechanical Ventilator 45 20/17 18:30 95 18 98/46 100 Mechanical Ventilator 45 20/17 18:15 94 18 93/46 100 Mechanical Ventilator 45 /20/17 18:00 94 18 95/47 100 Mechanical Ventilator 45 20/17 18:00 95/48 20/17 17:45 98 18 84/48 100 Mechanical Ventilator 45 20/17 17:30 92 18 88/45 100 Mechanical Ventilator 45 20/17 17:15 96 17 92/44 100 Mechanical Ventilator 45 20/17 17:00 96 06/11/17 17:00 96 18 96/50 100 Mechanical Ventilator 45 17 17:00 92/44 06/11/16 16:45 92 20 96/46 100 Mechanical Ventilator 45 06/11/17 16:31 99 21 45 06/11/17 16:30 98 20 97/43 100 Mechanical Ventilator 45 06/11/17 16:15 96 18 93/45 100 Mechanical Ventilator 45 06/11/17 16:00 94 18 86/42 98 Mechanical Ventilator 45 06/11/17 16:00 45 20/17 16:00 93/45 06/11/17 15:45 96 18 85/44 100 Mechanical Ventilator 45 06/11/17 15:30 95 18 79/35 100 Mechanical Ventilator 45 20/17 15:15 98.1 96 18 73/38 100 Mechanical Ventilator 45 20/17 15:00 94 17 75/40 100 Mechanical Ventilator 45 06/11/17 14:45 94 21 105/54 100 Mechanical Ventilator 45 06/11/17 14:44 96 21 45 /20/17 14:30 96 22 105/54 100 Mechanical Ventilator 45 /20/17 14:15 95 22 102/43 100 Mechanical Ventilator 45 20/17 14:00 99/55 06/11/17 14:00 95 22 99/55 100 Mechanical Ventilator 45 3/20/17 13:45 95 21 84/48 100 Mechanical Ventilator 45 06/11/16 13:30 98 21 88/44 100 Mechanical Ventilator 45 06/11/16 13:15 96 22 90/48 100 Mechanical Ventilator 45 06/11/16 13:00 97 22 85/46 100 Mechanical Ventilator 45 06/11/16 13:00 85/48 06/11/16 12:45 97 23 90/52 100 Mechanical Ventilator 45 06/11/16 12:34 98 22 45 06/11/16 12:30 98 24 85/51 100 Mechanical Ventilator 45 06/11/16 12:15 99 23 90/49 100 Mechanical Ventilator 45 06/11/16 12:00 45 06/11/16 12:00 97 06/11/16 12:00 97.4 99 22 87/48 100 Mechanical Ventilator 45 06/11/16 12:00 90/49 06/11/16 11:45 97 24 87/50 100 Mechanical Ventilator 45 06/11/16 11:30 97 22 86/46 100 Mechanical Ventilator 45 06/11/16 11:15 96 23 69/44 100 Mechanical Ventilator 45 06/11/16 11:00 103 24 81/43 100 Mechanical Ventilator 45 06/11/16 10:45 103 24 81/43 100 Mechanical Ventilator 45 06/11/16 10:35 101 20 45 06/11/16 10:30 102 24 98/59 100 Mechanical Ventilator 45 06/11/16 10:15 101 26 80/49 100 Mechanical Ventilator 45 06/11/16 10:00 103 25 77/45 100 Mechanical Ventilator 45 06/11/16 09:45 99 22 77/41 100 Mechanical Ventilator 45 06/11/16 09:30 101 24 74/42 100 Mechanical Ventilator 45 Intake and Output 06/11/16 06/12/16 19:00 07:00 Intake Total 2136.482 ml 1914.013 ml Output Total 130 ml 45 ml Balance 2006.482 ml 1869.013 ml Intake Free Water 50 ml 100 ml IV Total 906.482 ml 1184.013 ml Tube Feeding 600 ml 600 ml Blood Product 500 ml Other 80 ml 30 ml Output Urine Total 130 ml 45 ml # Voids 20 # Bowel Movements 4 1 Laboratory Tests 06/11/16 12:50: Activated Partial Thromboplast Time 70H 06/11/16 16:20: Vancomycin Level Trough 26.6H 06/12/16 03:45: Activated Partial Thromboplast Time 80H, White Blood Count 6.2, Red Blood Count 3.39L, Hemoglobin 9.8#L, Hematocrit 30.6#L, Mean Corpuscular Volume 90, Mean Corpuscular Hemoglobin 28.8, Mean Corpuscular Hemoglobin Concent 31.9L, Red Cell Distribution Width 16.5H, Platelet Count 114L, Mean Platelet Volume 10.2H, Neutrophils (%) (Auto) 83.6H, Lymphocytes (%) (Auto) 8.0L, Monocytes (%) (Auto) 7.3, Eosinophils (%) (Auto) 0.3, Basophils (%) (Auto) 0.8, Sodium Level 125L, Potassium Level 4.7, Chloride Level 90L, Carbon Dioxide Level 21, Anion Gap 14, Blood Urea Nitrogen 42H, Creatinine 1.3H, Estimat Glomerular Filtration Rate , Glucose Level 104, Calcium Level 6.7L, Total Bilirubin 0.4, Aspartate Amino Transf (AST/SGOT) 36, Alanine Aminotransferase (ALT/SGPT) 25, Alkaline Phosphatase 308H, Total Protein 4.7L, Albumin 0.8L, Globulin 3.9, Albumin/ Globulin Ratio 0.2L Height (Feet): 5 Height (Inches): 8.00 Weight (Pounds): 138 Objective General Appearance: WD/WN, lethargic, thin Neck: supple Cardiovascular: normal rate Respiratory/Chest: rhonchi - bilaterally, expiratory wheezing Abdomen: normal bowel sounds, non tender, soft, no organomegaly Edema: no edema noted Arm (L), no edema noted Arm (R), no edema noted Leg (L), no edema noted Leg (R), no edema noted Pedal (L), no edema noted Pedal (R), no edema noted Generalized Neurologic: unresponsive MYLES AGUIRRE Jun 12, 2016 09:19
[2016-06-12] MEDS: Vancomycin 1 GM in D5W 275 ML IVPB SCH (10:31)
--- NOTE | 2016-06-12 10:57 | Cardiology Report ---
APPROVED REPORT EXAM: Two-dimensional and M-mode echocardiogram with Doppler and color Doppler. INDICATION Atrial Fibrillation M-Mode DIMENSIONS IVSd0.6 (0.7-1.1cm)Left Atrium (MM)2.7 (1.6-4.0cm) LVDd4.8 (3.5-5.6cm)Aortic Root3.1 (2.0-3.7cm) PWd0.8 (0.7-1.1cm)Aortic Cusp Exc.2.0 (1.5-2.0cm) LVDs3.8 (2.5-4.0cm) PWs0.8 cm Technically difficult study due to poor acoustic windows. Normal left ventricular chamber size, systolic function and wall motion except septal hypokinesis. diastolid flattening of VS may be related to rv volume overload Left ventricular ejection fraction estimated to be 45-50%. No evidence of left ventricular hypertrophy. No evidence of pericardial fat or effusion. All other cardiac chamber sizes are within normal limits. Focal aortic valve sclerosis with adequate cusp excursion Thickened mitral valve leaflets with normal excursion. Mitral annulus and aortic root calcification. Pulmonic valve not well visualized. Normal tricuspid valve structure. IVC not obtainable. A color flow and spectral Doppler study was performed and revealed: Left ventricular diastolic dysfunction grade 1. Moderate tricuspid regurgitation. Tricuspid systolic velocities suggests peak right ventricular systolic pressure of 55-60 mmHg Consistent with pulmonary hypertension.
--- NOTE | 2016-06-12 11:34 | Cardiology Report ---
APPROVED REPORT EKG Measurement Heart [id number] Normal sinus rhythm Rightward axis Septal infarct, age undetermined Abnormal ECG
--- NOTE | 2016-06-12 11:49 | Infectious Diseases Prog Note ---
Assessment/Plan Assessment/Plan antibiotics : vancomycin iv, zosyn A 1. MRSA sepsis 2. gram negative pneumonia 3. respiratory failure 4. septic shock 5. DVT of legs P 1. continue vancomycin iv, zosyn 2. d/c flagyl 3. will follow up cultures Subjective ROS Limited/Unobtainable: Yes Allergies: Coded Allergies: No Known Allergies (Unverified , 06/09/16) Objective Vital Signs Last 24 Hour Vital Signs Date Time Temp Pulse Resp B/P Pulse Ox O2 Delivery O2 Flow Rate FiO2 06/12/16 10:49 93 22 40 06/12/16 09:23 22 110/48 99 Mechanical Ventilator 40 06/12/16 08:55 91 22 40 06/12/16 08:00 97.5 97 22 97/49 99 Mechanical Ventilator 45 06/12/16 08:00 40 06/12/16 07:06 106/58 06/12/16 07:00 98 21 106/58 100 Mechanical Ventilator 45 06/12/16 06:46 99 22 40 06/12/16 06:45 99 21 103/64 100 Mechanical Ventilator 45 06/12/16 06:30 99 21 106/64 100 Mechanical Ventilator 45 06/12/16 06:15 100 21 83/67 100 Mechanical Ventilator 45 06/12/16 06:00 99 21 83/67 100 Mechanical Ventilator 45 06/12/16 06:00 83/67 06/12/16 05:45 99 21 87/56 100 Mechanical Ventilator 45 06/12/16 05:30 100 21 83/62 100 Mechanical Ventilator 45 06/12/16 05:15 101 21 89/62 100 Mechanical Ventilator 45 06/12/16 05:00 100 21 99/61 100 Mechanical Ventilator 45 06/12/16 05:00 99/61 06/12/16 04:45 99 21 100/61 100 Mechanical Ventilator 45 06/12/16 04:31 96 22 40 06/12/16 04:30 98 21 56/44 100 Mechanical Ventilator 45 06/12/16 04:15 96 21 56/44 100 Mechanical Ventilator 45 06/12/16 04:00 40 06/12/16 04:00 96.5 95 21 69/38 100 Mechanical Ventilator 45 06/12/16 04:00 69/44 06/12/16 04:00 100 06/12/16 03:45 93 21 96/44 100 Mechanical Ventilator 45 06/12/16 03:30 96 21 85/43 100 Mechanical Ventilator 45 06/12/16 03:15 98 21 85/46 100 Mechanical Ventilator 45 06/12/16 03:02 99 22 40 06/12/16 03:00 97 21 97/45 100 Mechanical Ventilator 45 06/12/16 03:00 97/45 06/12/16 02:45 97 21 102/43 100 Mechanical Ventilator 45 06/12/16 02:30 97 21 97/45 100 Mechanical Ventilator 45 06/12/16 02:15 96 21 94/45 100 Mechanical Ventilator 45 06/12/16 02:00 93/43 06/12/16 02:00 96 21 86/42 100 Mechanical Ventilator 45 06/12/16 01:45 96 21 99/45 100 Mechanical Ventilator 45 06/12/16 01:30 97 21 90/46 100 Mechanical Ventilator 45 06/12/16 01:15 95 21 99/45 100 Mechanical Ventilator 45 06/12/16 01:00 95 21 98/42 100 Mechanical Ventilator 45 06/12/16 01:00 98/42 06/12/16 00:45 95 21 97/46 100 Mechanical Ventilator 45 06/12/16 00:41 98 22 40 06/12/16 00:30 94 21 100/49 100 Mechanical Ventilator 45 06/12/16 00:15 94 21 100/49 100 Mechanical Ventilator 45 06/12/16 00:00 97.8 92 21 94/45 100 Mechanical Ventilator 45 06/12/16 00:00 40 06/12/16 00:00 92 06/11/16 23:45 92 21 102/46 100 Mechanical Ventilator 45 06/11/16 23:30 94 21 85/40 100 Mechanical Ventilator 45 06/11/16 23:15 94 21 97/42 100 Mechanical Ventilator 45 06/11/16 23:00 93 21 97/42 100 Mechanical Ventilator 45 06/11/16 23:00 101/47 06/11/16 22:45 95 23 101/47 100 Mechanical Ventilator 45 06/11/16 22:39 95 22 40 06/11/16 22:30 95 20 90/42 100 Mechanical Ventilator 45 06/11/16 22:15 95 22 98/44 100 Mechanical Ventilator 45 06/11/16 22:00 95 22 94/41 100 Mechanical Ventilator 45 06/11/16 22:00 98/44 06/11/16 21:45 97 18 98/46 100 Mechanical Ventilator 45 20/17 21:30 95 18 98/45 98 Mechanical Ventilator 45 20/17 21:15 93 21 94/45 100 Mechanical Ventilator 45 20/17 21:00 94 20 82/44 100 Mechanical Ventilator 45 20/17 21:00 87/44 20/17 20:58 96 22 40 06/11/17 20:45 97 18 88/40 100 Mechanical Ventilator 45 06/11/17 20:30 95 21 96/42 100 Mechanical Ventilator 45 20/17 20:26 97/46 06/11/17 20:15 98.4 96 21 97/46 100 Mechanical Ventilator 45 06/11/16 20:00 95 06/11/16 20:00 96 18 96/47 100 Mechanical Ventilator 45 06/11/17 20:00 96/46 06/11/16 20:00 45 06/11/16 19:30 97 18 85/44 100 Mechanical Ventilator 45 06/11/16 19:15 96 20 92/47 99 Mechanical Ventilator 45 06/11/16 19:10 101 22 40 06/11/16 19:00 84/43 06/11/ 19:00 94 18 84/43 100 Mechanical Ventilator 45 06/11/16 18:45 96 21 93/46 100 Mechanical Ventilator 45 06/11/16 18:30 95 18 98/46 100 Mechanical Ventilator 45 06/11/17 18:15 94 18 93/46 100 Mechanical Ventilator 45 17 18:00 94 18 95/47 100 Mechanical Ventilator 45 06/11/16 18:00 95/48 06/11/16 17:45 98 18 84/48 100 Mechanical Ventilator 45 06/11/17 17:30 92 18 88/45 100 Mechanical Ventilator 45 20/17 17:15 96 17 92/44 100 Mechanical Ventilator 45 06/11/17 17:00 96 06/11/17 17:00 96 18 96/50 100 Mechanical Ventilator 45 20/17 17:00 92/44 20/17 16:45 92 20 96/46 100 Mechanical Ventilator 45 20/17 16:31 99 21 45 20/17 16:30 98 20 97/43 100 Mechanical Ventilator 45 20/17 16:15 96 18 93/45 100 Mechanical Ventilator 45 3/20/17 16:00 94 18 86/42 98 Mechanical Ventilator 45 06/11/16 16:00 45 06/11/16 16:00 93/45 06/11/16 15:45 96 18 85/44 100 Mechanical Ventilator 45 06/11/16 15:30 95 18 79/35 100 Mechanical Ventilator 45 06/11/16 15:15 98.1 96 18 73/38 100 Mechanical Ventilator 45 06/11/16 15:00 94 17 75/40 100 Mechanical Ventilator 45 06/11/16 14:45 94 21 105/54 100 Mechanical Ventilator 45 06/11/16 14:44 96 21 45 06/11/16 14:30 96 22 105/54 100 Mechanical Ventilator 45 06/11/16 14:15 95 22 102/43 100 Mechanical Ventilator 45 06/11/16 14:00 99/55 06/11/16 14:00 95 22 99/55 100 Mechanical Ventilator 45 06/11/16 13:45 95 21 84/48 100 Mechanical Ventilator 45 06/11/16 13:30 98 21 88/44 100 Mechanical Ventilator 45 06/11/16 13:15 96 22 90/48 100 Mechanical Ventilator 45 06/11/16 13:00 97 22 85/46 100 Mechanical Ventilator 45 06/11/16 13:00 85/48 06/11/16 12:45 97 23 90/52 100 Mechanical Ventilator 45 06/11/16 12:34 98 22 45 06/11/16 12:30 98 24 85/51 100 Mechanical Ventilator 45 06/11/16 12:15 99 23 90/49 100 Mechanical Ventilator 45 06/11/16 12:00 45 06/11/16 12:00 97 06/11/16 12:00 97.4 99 22 87/48 100 Mechanical Ventilator 45 06/11/16 12:00 90/49 Height (Feet): 5 Height (Inches): 8.00 Weight (Pounds): 138 HEENT: status post trach Respiratory/Chest: rhonchi - bilaterally Cardiovascular: normal rate, regular rhythm, no gallop/murmur Abdomen: soft, non tender, other - GT Extremities: other - + edema, left arm PICC Microbiology Date/Time Source Procedure Growth Status 06/09/16 12:00 Blood Blood Culture - Final Staphylococcus Aureus - Mrsa Complete 06/09/16 11:50 Blood Blood Culture - Final Staphylococcus Aureus - Mrsa Resulted 06/10/16 12:15 Sputum Gram Stain Pending Resulted 06/10/16 12:15 Sputum Culture - Preliminary Gram Negative Bacillus 1 Resulted 06/10/16 05:00 Sacral Wound Gram Stain - Final Resulted 06/10/16 05:00 Sacral Wound Wound Culture Pending Resulted 06/10/16 04:00 Rectum VRE Culture - Final Enterococcus Faecalis - Vre Enterococcus Faecium - Vre Complete 06/10/16 03:20 Sacral Wound Gram Stain - Final Resulted 06/10/16 03:20 Wound Culture - Preliminary A.baumanii Complx - Mdr Gram Negative Bacillus 2 Resulted Laboratory Tests Test 06/11/16 12:50 06/11/16 16:20 06/12/16 03:45 Activated Partial Thromboplast Time 70 SEC (23-33) H 80 SEC (23-33) H Vancomycin Level Trough 26.6 ug/mL (5.0-12.0) H White Blood Count 6.2 K/UL (4.8-10.8) Red Blood Count 3.39 M/UL (4.70-6.10) L Hemoglobin 9.8 G/DL (14.2-18.0) #L Hematocrit 30.6 % (42.0-52.0) #L Mean Corpuscular Volume 90 FL (80-99) Mean Corpuscular Hemoglobin 28.8 PG (27.0-31.0) Mean Corpuscular Hemoglobin Concent 31.9 G/DL (32.0-36.0) L Red Cell Distribution Width 16.5 % (11.6-14.8) H Platelet Count 114 K/UL (150-450) L Mean Platelet Volume 10.2 FL (6.5-10.1) H Neutrophils (%) (Auto) 83.6 % (45.0-75.0) H Lymphocytes (%) (Auto) 8.0 % (20.0-45.0) L Monocytes (%) (Auto) 7.3 % (1.0-10.0) Eosinophils (%) (Auto) 0.3 % (0.0-3.0) Basophils (%) (Auto) 0.8 % (0.0-2.0) Sodium Level 125 mEQ/L (135-145) L Potassium Level 4.7 mEQ/L (3.4-4.9) Chloride Level 90 mEQ/L (98-107) L Carbon Dioxide Level 21 mEQ/L (20-30) Anion Gap 14 (5-15) Blood Urea Nitrogen 42 mg/dL (7-23) H Creatinine 1.3 mg/dL (0.7-1.2) H Estimat Glomerular Filtration Rate mL/min (>60) Glucose Level 104 mg/dL (74-106) Calcium Level 6.7 mg/dL (8.6-10.2) L Total Bilirubin 0.4 mg/dL (0.0-1.2) Aspartate Amino Transf (AST/SGOT) 36 U/L (5-40) Alanine Aminotransferase (ALT/SGPT) 25 U/L (3-41) Alkaline Phosphatase 308 U/L (40-129) H Total Protein 4.7 g/dL (6.6-8.7) L Albumin 0.8 g/dL (3.5-5.2) L Globulin 3.9 g/dL Albumin/Globulin Ratio 0.2 (1.0-2.7) L GURMEET LEIVA Jun 12, 2016 11:49
--- NOTE | 2016-06-12 12:33 | Critical Care Progress Note ---
Assessment/Plan Assessment/Plan IMPRESSION: 1. Sepsis with shock. 2. Hypotension. 3. Electrolyte imbalance. 4. Hyponatremia. 5. Hyperkalemia. 6. Acute renal failure. 7. Severe protein-calorie malnutrition. 8. Chronic encephalopathy. 9. Respiratory acidosis. 10. anemia 11. Bacteremia 12. sacral wound infection 13. acute renal failure PLAN IV antibiotics and monitor ID follow up noted taper pressors as able nutrition SNF meds ventilator as is and no plan to wean follow up care closely ICU care reviewed labs noted remains critical medications/laboratory data/nursing notes/ICU care reviewed in detail note reviewed and edited care discussed with RN and RT ICU time spent 35 minutes Critical Care - Subjective I&O: Intake and Output 06/11/16 06/12/16 19:00 07:00 Intake Total 2136.482 ml 1914.013 ml Output Total 130 ml 45 ml Balance 2006.482 ml 1869.013 ml Intake Free Water 50 ml 100 ml IV Total 906.482 ml 1184.013 ml Tube Feeding 600 ml 600 ml Blood Product 500 ml Other 80 ml 30 ml Output Urine Total 130 ml 45 ml # Voids 20 # Bowel Movements 4 1 Critical Care - Objective Last 24 Hour Vital Signs Date Time Temp Pulse Resp B/P Pulse Ox O2 Delivery O2 Flow Rate FiO2 06/12/16 12:00 93 06/12/16 12:00 40 06/12/16 10:49 93 22 40 06/12/16 09:23 22 110/48 99 Mechanical Ventilator 40 06/12/16 08:55 91 22 40 06/12/16 08:00 97.5 97 22 97/49 99 Mechanical Ventilator 45 06/12/16 08:00 40 06/12/16 08:00 99 06/12/16 07:06 106/58 06/12/16 07:00 98 21 106/58 100 Mechanical Ventilator 45 06/12/16 06:46 99 22 40 06/12/16 06:45 99 21 103/64 100 Mechanical Ventilator 45 06/12/16 06:30 99 21 106/64 100 Mechanical Ventilator 45 06/12/16 06:15 100 21 83/67 100 Mechanical Ventilator 45 06/12/16 06:00 99 21 83/67 100 Mechanical Ventilator 45 06/12/16 06:00 83/67 06/12/16 05:45 99 21 87/56 100 Mechanical Ventilator 45 06/12/16 05:30 100 21 83/62 100 Mechanical Ventilator 45 06/12/16 05:15 101 21 89/62 100 Mechanical Ventilator 45 06/12/16 05:00 100 21 99/61 100 Mechanical Ventilator 45 06/12/16 05:00 99/61 06/12/16 04:45 99 21 100/61 100 Mechanical Ventilator 45 06/12/16 04:31 96 22 40 06/12/16 04:30 98 21 56/44 100 Mechanical Ventilator 45 06/12/16 04:15 96 21 56/44 100 Mechanical Ventilator 45 06/12/16 04:00 40 06/12/16 04:00 96.5 95 21 69/38 100 Mechanical Ventilator 45 06/12/16 04:00 69/44 06/12/16 04:00 100 06/12/16 03:45 93 21 96/44 100 Mechanical Ventilator 45 06/12/16 03:30 96 21 85/43 100 Mechanical Ventilator 45 06/12/16 03:15 98 21 85/46 100 Mechanical Ventilator 45 06/12/16 03:02 99 22 40 06/12/16 03:00 97 21 97/45 100 Mechanical Ventilator 45 06/12/16 03:00 97/45 06/12/16 02:45 97 21 102/43 100 Mechanical Ventilator 45 06/12/16 02:30 97 21 97/45 100 Mechanical Ventilator 45 06/12/16 02:15 96 21 94/45 100 Mechanical Ventilator 45 06/12/16 02:00 93/43 06/12/16 02:00 96 21 86/42 100 Mechanical Ventilator 45 06/12/16 01:45 96 21 99/45 100 Mechanical Ventilator 45 06/12/16 01:30 97 21 90/46 100 Mechanical Ventilator 45 06/12/16 01:15 95 21 99/45 100 Mechanical Ventilator 45 06/12/16 01:00 95 21 98/42 100 Mechanical Ventilator 45 06/12/16 01:00 98/42 06/12/16 00:45 95 21 97/46 100 Mechanical Ventilator 45 06/12/16 00:41 98 22 40 06/12/16 00:30 94 21 100/49 100 Mechanical Ventilator 45 06/12/16 00:15 94 21 100/49 100 Mechanical Ventilator 45 06/12/16 00:00 97.8 92 21 94/45 100 Mechanical Ventilator 45 06/12/16 00:00 40 17 00:00 92 06/11/16 23:45 92 21 102/46 100 Mechanical Ventilator 45 17 23:30 94 21 85/40 100 Mechanical Ventilator 45 17 23:15 94 21 97/42 100 Mechanical Ventilator 45 17 23:00 93 21 97/42 100 Mechanical Ventilator 45 17 23:00 101/47 06/11/16 22:45 95 23 101/47 100 Mechanical Ventilator 45 06/11/16 22:39 95 22 40 17 22:30 95 20 90/42 100 Mechanical Ventilator 45 17 22:15 95 22 98/44 100 Mechanical Ventilator 45 06/11/16 22:00 95 22 94/41 100 Mechanical Ventilator 45 06/11/16 22:00 98/44 06/11/16 21:45 97 18 98/46 100 Mechanical Ventilator 45 06/11/16 21:30 95 18 98/45 98 Mechanical Ventilator 45 06/11/16 21:15 93 21 94/45 100 Mechanical Ventilator 45 06/11/16 21:00 94 20 82/44 100 Mechanical Ventilator 45 06/11/16 21:00 87/44 06/11/16 20:58 96 22 40 06/11/16 20:45 97 18 88/40 100 Mechanical Ventilator 45 06/11/16 20:30 95 21 96/42 100 Mechanical Ventilator 45 17 20:26 97/46 17 20:15 98.4 96 21 97/46 100 Mechanical Ventilator 45 06/11/16 20:00 95 06/11/16 20:00 96 18 96/47 100 Mechanical Ventilator 45 06/11/17 20:00 96/46 17 20:00 45 06/11/17 19:30 97 18 85/44 100 Mechanical Ventilator 45 06/11/17 19:15 96 20 92/47 99 Mechanical Ventilator 45 17 19:10 101 22 40 20/17 19:00 84/43 20/17 19:00 94 18 84/43 100 Mechanical Ventilator 45 06/11/17 18:45 96 21 93/46 100 Mechanical Ventilator 45 06/11/17 18:30 95 18 98/46 100 Mechanical Ventilator 45 3/20/17 18:15 94 18 93/46 100 Mechanical Ventilator 45 06/11/16 18:00 94 18 95/47 100 Mechanical Ventilator 45 06/11/16 18:00 95/48 06/11/16 17:45 98 18 84/48 100 Mechanical Ventilator 45 06/11/16 17:30 92 18 88/45 100 Mechanical Ventilator 45 06/11/16 17:15 96 17 92/44 100 Mechanical Ventilator 45 06/11/16 17:00 96 06/11/16 17:00 96 18 96/50 100 Mechanical Ventilator 45 06/11/16 17:00 92/44 06/11/16 16:45 92 20 96/46 100 Mechanical Ventilator 45 06/11/16 16:31 99 21 45 06/11/16 16:30 98 20 97/43 100 Mechanical Ventilator 45 06/11/16 16:15 96 18 93/45 100 Mechanical Ventilator 45 06/11/16 16:00 94 18 86/42 98 Mechanical Ventilator 45 06/11/16 16:00 45 06/11/16 16:00 93/45 06/11/16 15:45 96 18 85/44 100 Mechanical Ventilator 45 06/11/16 15:30 95 18 79/35 100 Mechanical Ventilator 45 06/11/16 15:15 98.1 96 18 73/38 100 Mechanical Ventilator 45 06/11/16 15:00 94 17 75/40 100 Mechanical Ventilator 45 06/11/16 14:45 94 21 105/54 100 Mechanical Ventilator 45 06/11/16 14:44 96 21 45 06/11/16 14:30 96 22 105/54 100 Mechanical Ventilator 45 06/11/16 14:15 95 22 102/43 100 Mechanical Ventilator 45 06/11/16 14:00 99/55 06/11/16 14:00 95 22 99/55 100 Mechanical Ventilator 45 06/11/16 13:45 95 21 84/48 100 Mechanical Ventilator 45 06/11/16 13:30 98 21 88/44 100 Mechanical Ventilator 45 06/11/16 13:15 96 22 90/48 100 Mechanical Ventilator 45 06/11/16 13:00 97 22 85/46 100 Mechanical Ventilator 45 06/11/16 13:00 85/48 06/11/16 12:45 97 23 90/52 100 Mechanical Ventilator 45 06/11/16 12:34 98 22 45 Labs: Labs Test 06/10/16 02:25 06/10/16 04:00 06/10/16 07:12 06/10/16 11:45 Arterial Blood pH 7.142 (7.350-7.450) 7.320 (7.350-7.450) Arterial Blood Partial Pressure CO2 67.3 mmHg (35.0-45.0) 50.3 mmHg (35.0-45.0) Arterial Blood Partial Pressure O2 220.7 mmHg (75.0-100.0) 187.0 mmHg (75.0-100.0) Arterial Blood HCO3 22.5 mmol/L (22.0-26.0) 26.0 mmol/L (22.0-26.0) Arterial Blood Oxygen Saturation 99.2 % (92.0-98.0) 99.0 % (92.0-98.0) Arterial Blood Base Excess -6.6 -0.8 Joaquin Test Positive White Blood Count 4.5 K/UL (4.8-10.8) Red Blood Count 2.90 M/UL (4.70-6.10) Hemoglobin 8.1 G/DL (14.2-18.0) Hematocrit 26.1 % (42.0-52.0) Mean Corpuscular Volume 90 FL (80-99) Mean Corpuscular Hemoglobin 28.0 PG (27.0-31.0) Mean Corpuscular Hemoglobin Concent 31.0 G/DL (32.0-36.0) Red Cell Distribution Width 17.9 % (11.6-14.8) Platelet Count 195 K/UL (150-450) Mean Platelet Volume 9.5 FL (6.5-10.1) Neutrophils (%) (Auto) % (45.0-75.0) Lymphocytes (%) (Auto) % (20.0-45.0) Monocytes (%) (Auto) % (1.0-10.0) Eosinophils (%) (Auto) % (0.0-3.0) Basophils (%) (Auto) % (0.0-2.0) Sodium Level 129 mEQ/L (135-145) Potassium Level 5.4 mEQ/L (3.4-4.9) Chloride Level 94 mEQ/L (98-107) Carbon Dioxide Level 25 mEQ/L (20-30) Anion Gap 10 (5-15) Blood Urea Nitrogen 38 mg/dL (7-23) Creatinine 0.9 mg/dL (0.7-1.2) Estimat Glomerular Filtration Rate mL/min (>60) Glucose Level 21 mg/dL (74-106) Calcium Level 6.5 mg/dL (8.6-10.2) Total Bilirubin 0.5 mg/dL (0.0-1.2) Aspartate Amino Transf (AST/SGOT) 67 U/L (5-40) Alanine Aminotransferase (ALT/SGPT) 39 U/L (3-41) Alkaline Phosphatase 322 U/L (40-129) Troponin I < 0.30 ng/mL (<=0.30) < 0.30 ng/mL (<=0.30) Total Protein 4.2 g/dL (6.6-8.7) Albumin 1.3 g/dL (3.5-5.2) Globulin 2.9 g/dL Albumin/Globulin Ratio 0.4 (1.0-2.7) Thyroid Stimulating Hormone (TSH) 0.879 uIU/mL (0.300-4.500) Test 06/10/16 18:00 06/10/16 20:50 06/11/16 03:20 06/11/16 12:50 Troponin I < 0.30 ng/mL (<=0.30) Prothrombin Time 11.8 SEC (9.30-11.50) 12.1 SEC (9.30-11.50) Prothromb Time International Ratio 1.2 (0.9-1.1) 1.2 (0.9-1.1) Activated Partial Thromboplast Time 35 SEC (23-33) 124 SEC (23-33) 70 SEC (23-33) White Blood Count 4.8 K/UL (4.8-10.8) Red Blood Count 2.56 M/UL (4.70-6.10) Hemoglobin 7.1 G/DL (14.2-18.0) Hematocrit 22.8 % (42.0-52.0) Mean Corpuscular Volume 89 FL (80-99) Mean Corpuscular Hemoglobin 27.8 PG (27.0-31.0) Mean Corpuscular Hemoglobin Concent 31.2 G/DL (32.0-36.0) Red Cell Distribution Width 17.9 % (11.6-14.8) Platelet Count 145 K/UL (150-450) Mean Platelet Volume 8.9 FL (6.5-10.1) Neutrophils (%) (Auto) % (45.0-75.0) Lymphocytes (%) (Auto) % (20.0-45.0) Monocytes (%) (Auto) % (1.0-10.0) Eosinophils (%) (Auto) % (0.0-3.0) Basophils (%) (Auto) % (0.0-2.0) Sodium Level 128 mEQ/L (135-145) Potassium Level 4.7 mEQ/L (3.4-4.9) Chloride Level 92 mEQ/L (98-107) Carbon Dioxide Level 23 mEQ/L (20-30) Anion Gap 13 (5-15) Blood Urea Nitrogen 39 mg/dL (7-23) Creatinine 1.0 mg/dL (0.7-1.2) Estimat Glomerular Filtration Rate mL/min (>60) Glucose Level 133 mg/dL (74-106) Calcium Level 6.6 mg/dL (8.6-10.2) Total Bilirubin 0.3 mg/dL (0.0-1.2) Aspartate Amino Transf (AST/SGOT) 46 U/L (5-40) Alanine Aminotransferase (ALT/SGPT) 31 U/L (3-41) Alkaline Phosphatase 300 U/L (40-129) Total Protein 4.4 g/dL (6.6-8.7) Albumin 0.8 g/dL (3.5-5.2) Globulin 3.6 g/dL Albumin/Globulin Ratio 0.2 (1.0-2.7) Test 06/11/16 16:20 06/12/16 03:45 Vancomycin Level Trough 26.6 ug/mL (5.0-12.0) White Blood Count 6.2 K/UL (4.8-10.8) Red Blood Count 3.39 M/UL (4.70-6.10) Hemoglobin 9.8 G/DL (14.2-18.0) Hematocrit 30.6 % (42.0-52.0) Mean Corpuscular Volume 90 FL (80-99) Mean Corpuscular Hemoglobin 28.8 PG (27.0-31.0) Mean Corpuscular Hemoglobin Concent 31.9 G/DL (32.0-36.0) Red Cell Distribution Width 16.5 % (11.6-14.8) Platelet Count 114 K/UL (150-450) Mean Platelet Volume 10.2 FL (6.5-10.1) Neutrophils (%) (Auto) 83.6 % (45.0-75.0) Lymphocytes (%) (Auto) 8.0 % (20.0-45.0) Monocytes (%) (Auto) 7.3 % (1.0-10.0) Eosinophils (%) (Auto) 0.3 % (0.0-3.0) Basophils (%) (Auto) 0.8 % (0.0-2.0) Activated Partial Thromboplast Time 80 SEC (23-33) Sodium Level 125 mEQ/L (135-145) Potassium Level 4.7 mEQ/L (3.4-4.9) Chloride Level 90 mEQ/L (98-107) Carbon Dioxide Level 21 mEQ/L (20-30) Anion Gap 14 (5-15) Blood Urea Nitrogen 42 mg/dL (7-23) Creatinine 1.3 mg/dL (0.7-1.2) Estimat Glomerular Filtration Rate mL/min (>60) Glucose Level 104 mg/dL (74-106) Calcium Level 6.7 mg/dL (8.6-10.2) Total Bilirubin 0.4 mg/dL (0.0-1.2) Aspartate Amino Transf (AST/SGOT) 36 U/L (5-40) Alanine Aminotransferase (ALT/SGPT) 25 U/L (3-41) Alkaline Phosphatase 308 U/L (40-129) Total Protein 4.7 g/dL (6.6-8.7) Albumin 0.8 g/dL (3.5-5.2) Globulin 3.9 g/dL Albumin/Globulin Ratio 0.2 (1.0-2.7) Objective: GENERAL: Very contracted individual, poorly responsive. HEENT: Fairly negative. Mild temporal wasting noted. Oropharynx is dry. NECK: Supple. Carotids 2+. LUNGS: Coarse breath sounds. Moderate air entry. CARDIAC: Normal S1 and S2. Overall, with regular rate and rhythm. Systolic murmur at the left parasternal border. No rubs or gallops. ABDOMEN: Soft, nontender, and nondistended. G-tube in place. No hepatosplenomegaly. EXTREMITIES: No cyanosis or clubbing noted contractures. NEUROLOGIC: Poorly responsive. reviewed and edited Micro: Microbiology Date/Time Source Procedure Growth Status 06/10/16 12:15 Sputum Gram Stain - Final Resulted 06/10/16 12:15 Sputum Culture - Preliminary Gram Negative Bacillus 1 Resulted 06/10/16 05:00 Sacral Wound Gram Stain - Final Resulted 06/10/16 05:00 Sacral Wound Wound Culture Pending Resulted 06/10/16 04:00 Rectum VRE Culture - Final Enterococcus Faecalis - Vre Enterococcus Faecium - Vre Complete 06/10/16 03:20 Sacral Wound Gram Stain - Final Resulted 06/10/16 03:20 Wound Culture - Preliminary A.baumanii Complx - Mdr Gram Negative Bacillus 2 Resulted Accucheck: 116 JACKIE DANIEL Jun 12, 2016 12:33
[2016-06-12] MEDS: Sodium Chloride 1gm Tab NG SCH ×2 (14:07→18:22)
--- NOTE | 2016-06-12 15:23 | Diagnostic Imaging Report ---
Indications: Needs long-term IV access Technique: Procedure performed at bedside. Ultrasound confirms patent compressible right brachial vein. Total sterile technique, including sterile probe cover and sterile gel, sterile gloves, hand hygiene, hat, mask,, sterile gown, large sterile drape, and preparation with 2% chlorhexidine utilized. Local anesthesia with 1% lidocaine. Under real-time ultrasound guidance, puncture vein using 21-gauge needle, passage 0.018 guidewire, exchange for 5 Lao peel-away sheath. 5 Lao Bard dual-lumen power PICC cut to 34 cm. It was inserted through the peel-away sheath. Peel-away sheath and guidewire removed. Catheter fixed to the skin. Both catheter ports aspirated and flushed. Patient tolerated procedure well, without immediate complication. Followup chest x-ray obtained, documents catheter tip position at the mid superior vena cava. Impression: Successful bedside placement of PICC under sonographic guidance, as described above.
[2016-06-12] MEDS ORDERED: NS 275ml ONE (16:41)
[2016-06-12] MEDS ORDERED: D5NS 1000ml IV ONE (16:52)
[2016-06-12] MEDS ORDERED: Tubing IV Secondary IV ONE (16:52)
--- NOTE | 2016-06-12 19:39 | Consultation ---
DATE OF CONSULTATION: 06/10/2016 INFECTIOUS DISEASES CONSULTATION CONSULTING PHYSICIAN: Sanya Pizano M.D. PRIMARY ATTENDING PHYSICIAN: Jr Perez M.D. REASON FOR CONSULTATION: Sepsis, pneumonia. HISTORY OF PRESENT ILLNESS: The patient is a 75-year-old male admitted last night from a snf facility. The patient has altered mental status, hypotension, and hypoglycemia. abnormal chest x-ray, admitted with impression of pneumonia. In BERT, the patient developed bradycardia and asystole and was coded. The patient was transferred to ICU, started on Levophed at this point with 10 mcg/kg/minute. He is unresponsive. The patient had a central line before admission. PAST MEDICAL HISTORY: Emphysema, anemia, ventilator-dependent respiratory failure, heart failure, and pressure ulcer. ALLERGIES: No known drug allergies. MEDICATIONS: Vancomycin, Vitamin C, Ferrous sulfate, multivitamin,Zinc, Protonix, Motrin,Tylenol, Flagyl Zosyn,LEvophed. SOCIAL HISTORY: alf resident, poor mental & physical status. REVIEW OF SYSTEMS: No other history is obtainable. PHYSICAL EXAMINATION: VITAL SIGNS: Temperature 94.5, pulse 86, respirations 25, and blood pressure 120/56. GENERAL APPEARANCE: He is chronically debilitated. HEAD AND NECK: s/p tracheostomy. skin color change near tracheostomy site. HEART: Tachycardic. LUNGS: The patient is on mechanical ventilator. clear. ABDOMEN: Soft. G-tube in place. EXTREMITIES: He has bilateral edema of the legs. SKIN: He has multiple skin tears and pressure ulcer in the sacral area with necrotic tissue likely stage IV pressure ulcer in, stage IV pressure ulcer of left calf, deep, necrotic. LABORATORY AND DIAGNOSTIC DATA: WBC 4.5, hemoglobin is 8.1, hematocrit 26.5, and platelets 195,000. Sodium 129, potassium 5.4, chloride 94, and bicarbonate 25. Glucose 21, alkaline phosphatase 322. Albumin is 1.3. CXR : no effusion consolidation in the left mid lung. The patient has an echocardiogram that showed normal ejection fraction. diastolic heart failure and venous duplex shows DVT of both legs. IMPRESSION: 1. Sepsis with septic shock. 2. s/p cardiac arrest. 3. The patient has pneumonia. 4. Deep venous thrombosis of legs. 5. Decreased albumin 6. Anemia. 7. Hyponatremia. 8. Hyperkalemia. 9. Hypoglycemia. 10. Ventilator dependent respiratory failure 11. Stage IV sacral and calf ulcers. RECOMMENDATIONS: We will continue with current antibiotics with Zosyn and vancomycin. Follow up of the culture. We will add sputum culture. At the end of my exam, I thank Dr. Perez & Dr. Mcdaniel for involving me in the care of this patient. Sanya Pizano M.D. DR: MARAH JOB#: [id number] CC: JOVANNY
--- NOTE | 2016-06-12 23:22 | Diagnostic Imaging Report ---
APPROVED REPORT CPT Code: 71767 Present Symptoms Lower Extremity Pain: Bilateral RIGHT LEG: Venous imaging reveals acute thrombus in the proximal superficial femoral vein. Imaging also reveals patency of the common femoral, mid femoral, distal femoral, popliteal and calf veins. Remainder of the deep venous system within normal limits. Greater saphenous vein also within normal limits. LEFT LEG: Venous imaging reveals acute thrombus in the common femoral to distal femoral veins. Imaging also reveals patency of the popliteal and calf veins. Remainder of the deep venous system within normal limits. Greater saphenous vein also within normal limits. WINNIE Nuñez notified @ [phone]
[2016-06-12] MEDS: Heparin 25,000u/D5W 500ml 500 ML IV SCH (23:55)
[2016-06-13] VITALS (93 sets, daily range): BP systolic 69–120; BP diastolic 17–73
--- NOTE | 2016-06-13 00:28 | Progress Note ---
DATE: 06/12/2016 CARDIOLOGY PROGRESS NOTE: SUBJECTIVE: The patient remains in the intensive care unit. Orally intubated. Mechanically ventilated. Marginal blood pressure readings on pressor support. OBJECTIVE: VITAL SIGNS: Blood pressure 97/49, temperature 97 degrees, respiratory rate 22, pulse 80, afebrile, and monitored sinus. LUNGS: Bilateral breath sounds. Rhonchi. HEART: Irregular rhythm. Rapid rate. Normal S1, S2. ABDOMEN: Soft. EXTREMITIES: With dependent edema. Right upper extremity PICC line. LABORATORY DATA: Sodium 125, potassium 4.7, bicarbonate 21, BUN 42, and creatinine 1.3. Albumin 0.8. White count 6.2 and hemoglobin 9.8. IMPRESSION: 1. Anemia status post transfusion. 2. Sepsis with shock. 3. Respiratory failure status post cardiopulmonary arrest. 4. Deep venous thrombosis with pulmonary embolus. 5. Severe protein-calorie malnutrition with third spacing. 6. Hyponatremia 7. Acute and chronic diastolic congestive heart failure with systolic and diastolic dysfunction. PLAN: Taper pressors. Cannot diurese at this time. Saline hydration. Antibiotics. Full anticoagulation. Transfuse for hemoglobin below 8 g. Ventilator support. Eddie Britt M.D. DR: Johnson JOB#: [id number] CC:
--- NOTE | 2016-06-13 02:30 | Progress Note ---
May SUBJECTIVE: The patient was seen and evaluated in the intensive care unit. Case was discussed with primary care physician and ICU nursing. The patient remains on ventilator support. OBJECTIVE: VITALS: Blood pressure 85/48, pulse 97, respiration 23, and temperature 97.4. The patient remains on pressor support. LUNGS: Bilateral breath sounds. Scattered rhonchi. HEART: Regular rhythm and rate. Normal S1 and S2. ABDOMEN: Soft. Trace edema. LABORATORY DATA: Sodium 128, potassium 4.7, chloride 90 , bicarbonate 23, BUN 39, creatinine 1.0, albumin 0.8, white count is 4.8 and hemoglobin 7.1. IMPRESSION: 1. Status post cardiopulmonary arrest. 2. Sepsis with shock. 3. Severe anemia. 4. Hyponatremia. 5. Hypochloremia. 6. Prerenal azotemia. 7. Severe protein-calorie malnutrition. 8. Acute deep vein thrombosis. PLAN: 1. Taper pressors. 2. Packed red blood cell transfusions. 3. Saline hydration. 4. Full anticoagulation. 5. Prognosis remains guarded. 6. Condition remains critical. Eddie Britt M.D. DR: MAURA JOB#: [id number] CC: JOVANNY
[2016-06-13] MEDS: D5NS 1,000 ML IV SCH ×2 (03:11→19:19)
[2016-06-13 04:57] LABS: MEAN CORPUSCULAR HEMOGLOBIN 28.5 PG (27.0-31.0); MEAN CORPUSCULAR HGB CONC 31.5 G/DL (32.0-36.0); MEAN CORPUSCULAR VOLUME 90 FL (80-99); MEAN PLATELET VOLUME 10.7 FL (6.5-10.1); PLATELET COUNT 91 K/UL (150-450); RED BLOOD COUNT 3.39 M/UL (4.70-6.10); RED CELL DISTRIBUTION WIDTH 16.7 % (11.6-14.8); WHITE BLOOD COUNT 8.9 K/UL (4.8-10.8)
[2016-06-13 05:20] LABS: ALANINE AMINOTRANSFERASE 21 U/L (3-41); ALBUMIN/GLOBULIN RATIO 0.2 (1.0-2.7); ANION GAP 14 (5-15); ASPARTATE AMINO TRANSFERASE 26 U/L (5-40); CALCIUM 6.9 mg/dL (8.6-10.2); CARBON DIOXIDE 21 mEQ/L (20-30); CHLORIDE 93 mEQ/L (98-107); CREATININE 1.5 mg/dL (0.7-1.2); HEMOLYSIS 3; POTASSIUM 4.7 mEQ/L (3.4-4.9); SODIUM 128 mEQ/L (135-145); TOTAL PROTEIN 4.6 g/dL (6.6-8.7)
[2016-06-13] MEDS: Piperacillin/Tazobactam 3.375 GM in D5W 110 ML IVPB SCH ×2 (05:35→13:33)
[2016-06-13] MEDS: Sodium Chloride 1gm Tab NG SCH ×3 (08:08→17:47)
[2016-06-13] MEDS: Zinc Sulfate 220mg cap GT SCH (08:08)
[2016-06-13] MEDS: Ascorbic Acid 500mg tab GT SCH (08:08)
[2016-06-13] MEDS: Ferrous Sulfate 300 MG/5 ML UDC GT SCH (08:09)
[2016-06-13] MEDS: Multivitamin 5ml Liquid GT SCH (08:09)
--- NOTE | 2016-06-13 08:59 | Critical Care Progress Note ---
Assessment/Plan Assessment/Plan IMPRESSION: 1. Sepsis with shock. 2. Hypotension. 3. Electrolyte imbalance. 4. Hyponatremia. 5. Hyperkalemia. 6. Acute renal failure. 7. Severe protein-calorie malnutrition. 8. Chronic encephalopathy. 9. Respiratory acidosis. 10. anemia 11. Bacteremia 12. sacral wound infection 13. acute renal failure 14, acute DVT PLAN IV antibiotics and monitor ID follow up noted pressors as needed nutrition as tolerated SNF meds ventilator as is monitor ABG follow up care closely ICU care reviewed labs noted remains critical at present will try to update family all meds reviewed on Heparin drip; monitor platelets discussed with all consultants medications/laboratory data/nursing notes/ICU care reviewed in detail note reviewed and edited care discussed with RN and RT ICU time spent 38 minutes Critical Care - Subjective Interval Events: remains hypotensive still in ICU Condition: critical EKG Rhythm: Sinus Rhythm I&O: Intake and Output 06/12/16 06/13/16 19:00 07:00 Intake Total 2170.209 ml 1870.22 ml Output Total 0 ml 5 ml Balance 2170.209 ml 1865.22 ml Intake Free Water 35 ml IV Total 1585.209 ml 1270.22 ml Tube Feeding 550 ml 600 ml Output Urine Total 0 ml 5 ml # Voids 5 # Bowel Movements 1 2 Critical Care - Objective Last 24 Hour Vital Signs Date Time Temp Pulse Resp B/P Pulse Ox O2 Delivery O2 Flow Rate FiO2 06/13/16 07:15 95 22 40 06/13/16 06:45 95 24 81/50 99 Mechanical Ventilator 40 06/13/16 06:30 93 24 83/46 99 Mechanical Ventilator 40 06/13/16 06:15 93 24 79/46 99 Mechanical Ventilator 40 06/13/16 06:00 93 22 81/44 99 Mechanical Ventilator 40 06/13/16 06:00 81/44 06/13/16 05:45 94 22 77/49 100 Mechanical Ventilator 40 06/13/16 05:30 92 23 81/48 100 Mechanical Ventilator 40 06/13/16 05:23 96 22 40 06/13/16 05:15 97 25 73/50 100 Mechanical Ventilator 40 06/13/16 05:00 92 23 79/46 100 Mechanical Ventilator 40 06/13/16 05:00 79/46 06/13/16 04:45 93 22 83/45 100 Mechanical Ventilator 40 06/13/16 04:30 86 23 83/46 98 Mechanical Ventilator 40 06/13/16 04:00 86 06/13/16 04:00 40 06/13/16 04:00 94.5 86 22 91/49 99 Mechanical Ventilator 40 06/13/16 04:00 91/49 06/13/16 03:30 98 22 92/50 99 Mechanical Ventilator 40 06/13/16 03:00 92/54 06/13/16 03:00 96 22 92/54 99 Mechanical Ventilator 40 06/13/16 02:57 96 22 40 06/13/16 02:45 97 22 93/55 99 Mechanical Ventilator 40 06/13/16 02:30 94 20 105/55 99 Mechanical Ventilator 40 06/13/16 02:15 91 20 84/50 99 Mechanical Ventilator 40 06/13/16 02:00 91 19 88/53 99 Mechanical Ventilator 40 06/13/16 02:00 88/53 06/13/16 01:45 91 19 87/53 99 Mechanical Ventilator 40 06/13/16 01:30 91 19 92/59 100 Mechanical Ventilator 40 06/13/16 01:15 91 19 85/52 100 Mechanical Ventilator 40 06/13/16 01:12 87 22 40 06/13/16 01:00 88 19 85/53 100 Mechanical Ventilator 40 06/13/16 01:00 85/33 06/13/16 00:45 87 20 85/55 100 Mechanical Ventilator 40 06/13/16 00:30 88 20 83/50 100 Mechanical Ventilator 40 06/13/16 00:15 87 19 82/52 100 Mechanical Ventilator 40 06/13/16 00:00 94.4 89 22 85/47 100 Mechanical Ventilator 40 06/13/16 00:00 40 06/13/16 00:00 89 06/13/16 00:00 85/47 06/12/16 23:30 95 22 104/62 100 Mechanical Ventilator 40 06/12/16 23:15 94 22 40 06/12/16 23:00 108/66 06/12/16 23:00 95 22 108/66 100 Mechanical Ventilator 40 06/12/16 22:30 92 22 106/65 100 Mechanical Ventilator 40 06/12/16 22:00 92 22 111/64 100 Mechanical Ventilator 40 06/12/16 22:00 111/64 06/12/16 21:30 86 22 107/62 100 Mechanical Ventilator 40 06/12/16 21:00 89 32 94/55 100 Mechanical Ventilator 40 06/12/16 21:00 94/55 06/12/16 20:59 86 22 40 06/12/16 20:30 88 32 95/54 100 Mechanical Ventilator 40 06/12/16 20:00 89 21 117/62 100 Mechanical Ventilator 40 06/12/16 20:00 89 06/12/16 20:00 40 06/12/16 20:00 117/62 06/12/16 19:30 94.5 85 20 116/61 100 Mechanical Ventilator 40 06/12/16 19:10 88 22 40 06/12/16 19:00 116/59 06/12/16 19:00 86 22 116/59 100 Mechanical Ventilator 40 06/12/16 18:00 87 22 111/54 100 Mechanical Ventilator 40 06/12/16 17:30 99 22 108/58 100 Mechanical Ventilator 40 06/12/16 17:00 100 22 101/54 100 Mechanical Ventilator 40 06/12/16 17:00 108/58 06/12/16 16:50 90 22 40 06/12/16 16:47 100 22 101/54 100 Mechanical Ventilator 40 06/12/16 16:30 97.4 90 21 104/50 100 Mechanical Ventilator 40 06/12/16 16:00 100 06/12/16 16:00 94 22 110/59 100 Mechanical Ventilator 40 06/12/16 16:00 110/59 06/12/16 16:00 40 06/12/16 15:30 92 22 99/57 100 Mechanical Ventilator 40 06/12/16 15:22 94 22 40 06/12/16 15:00 94 22 100/22 100 Mechanical Ventilator 40 06/12/16 15:00 100/59 06/12/16 14:38 104/58 06/12/16 14:30 95 22 107/60 100 Mechanical Ventilator 40 06/12/16 14:00 95 22 112/46 100 Mechanical Ventilator 40 06/12/16 13:30 94 22 109/60 100 Mechanical Ventilator 40 06/12/16 13:00 97 22 112/63 100 Mechanical Ventilator 40 06/12/16 12:35 94 22 40 06/12/16 12:30 99 22 118/61 100 Mechanical Ventilator 40 06/12/16 12:00 97.2 94 22 103/57 100 Mechanical Ventilator 40 06/12/16 12:00 93 06/12/16 12:00 40 06/12/16 11:30 95 22 104/53 100 Mechanical Ventilator 40 06/12/16 11:00 95 22 97/59 100 Mechanical Ventilator 40 06/12/16 10:49 93 22 40 06/12/16 10:30 93 22 90/44 99 Mechanical Ventilator 40 06/12/16 10:00 96 22 101/50 98 Mechanical Ventilator 40 06/12/16 09:23 22 110/48 99 Mechanical Ventilator 40 06/12/16 09:00 96 22 87/49 99 Mechanical Ventilator 40 06/12/16 08:55 91 22 40 Labs: Labs Test 06/10/16 11:45 06/10/16 18:00 06/10/16 20:50 06/11/16 03:20 Troponin I < 0.30 ng/mL (<=0.30) < 0.30 ng/mL (<=0.30) Prothrombin Time 11.8 SEC (9.30-11.50) 12.1 SEC (9.30-11.50) Prothromb Time International Ratio 1.2 (0.9-1.1) 1.2 (0.9-1.1) Activated Partial Thromboplast Time 35 SEC (23-33) 124 SEC (23-33) White Blood Count 4.8 K/UL (4.8-10.8) Red Blood Count 2.56 M/UL (4.70-6.10) Hemoglobin 7.1 G/DL (14.2-18.0) Hematocrit 22.8 % (42.0-52.0) Mean Corpuscular Volume 89 FL (80-99) Mean Corpuscular Hemoglobin 27.8 PG (27.0-31.0) Mean Corpuscular Hemoglobin Concent 31.2 G/DL (32.0-36.0) Red Cell Distribution Width 17.9 % (11.6-14.8) Platelet Count 145 K/UL (150-450) Mean Platelet Volume 8.9 FL (6.5-10.1) Neutrophils (%) (Auto) % (45.0-75.0) Lymphocytes (%) (Auto) % (20.0-45.0) Monocytes (%) (Auto) % (1.0-10.0) Eosinophils (%) (Auto) % (0.0-3.0) Basophils (%) (Auto) % (0.0-2.0) Sodium Level 128 mEQ/L (135-145) Potassium Level 4.7 mEQ/L (3.4-4.9) Chloride Level 92 mEQ/L (98-107) Carbon Dioxide Level 23 mEQ/L (20-30) Anion Gap 13 (5-15) Blood Urea Nitrogen 39 mg/dL (7-23) Creatinine 1.0 mg/dL (0.7-1.2) Estimat Glomerular Filtration Rate mL/min (>60) Glucose Level 133 mg/dL (74-106) Calcium Level 6.6 mg/dL (8.6-10.2) Total Bilirubin 0.3 mg/dL (0.0-1.2) Aspartate Amino Transf (AST/SGOT) 46 U/L (5-40) Alanine Aminotransferase (ALT/SGPT) 31 U/L (3-41) Alkaline Phosphatase 300 U/L (40-129) Total Protein 4.4 g/dL (6.6-8.7) Albumin 0.8 g/dL (3.5-5.2) Globulin 3.6 g/dL Albumin/Globulin Ratio 0.2 (1.0-2.7) Test 06/11/16 12:50 06/11/16 16:20 06/12/16 03:45 06/13/16 04:00 Activated Partial Thromboplast Time 70 SEC (23-33) 80 SEC (23-33) Vancomycin Level Trough 26.6 ug/mL (5.0-12.0) White Blood Count 6.2 K/UL (4.8-10.8) 8.9 K/UL (4.8-10.8) Red Blood Count 3.39 M/UL (4.70-6.10) 3.39 M/UL (4.70-6.10) Hemoglobin 9.8 G/DL (14.2-18.0) 9.7 G/DL (14.2-18.0) Hematocrit 30.6 % (42.0-52.0) 30.6 % (42.0-52.0) Mean Corpuscular Volume 90 FL (80-99) 90 FL (80-99) Mean Corpuscular Hemoglobin 28.8 PG (27.0-31.0) 28.5 PG (27.0-31.0) Mean Corpuscular Hemoglobin Concent 31.9 G/DL (32.0-36.0) 31.5 G/DL (32.0-36.0) Red Cell Distribution Width 16.5 % (11.6-14.8) 16.7 % (11.6-14.8) Platelet Count 114 K/UL (150-450) 91 K/UL (150-450) Mean Platelet Volume 10.2 FL (6.5-10.1) 10.7 FL (6.5-10.1) Neutrophils (%) (Auto) 83.6 % (45.0-75.0) % (45.0-75.0) Lymphocytes (%) (Auto) 8.0 % (20.0-45.0) % (20.0-45.0) Monocytes (%) (Auto) 7.3 % (1.0-10.0) % (1.0-10.0) Eosinophils (%) (Auto) 0.3 % (0.0-3.0) % (0.0-3.0) Basophils (%) (Auto) 0.8 % (0.0-2.0) % (0.0-2.0) Sodium Level 125 mEQ/L (135-145) Potassium Level 4.7 mEQ/L (3.4-4.9) Chloride Level 90 mEQ/L (98-107) Carbon Dioxide Level 21 mEQ/L (20-30) Anion Gap 14 (5-15) Blood Urea Nitrogen 42 mg/dL (7-23) Creatinine 1.3 mg/dL (0.7-1.2) Estimat Glomerular Filtration Rate mL/min (>60) Glucose Level 104 mg/dL (74-106) Calcium Level 6.7 mg/dL (8.6-10.2) Total Bilirubin 0.4 mg/dL (0.0-1.2) Aspartate Amino Transf (AST/SGOT) 36 U/L (5-40) Alanine Aminotransferase (ALT/SGPT) 25 U/L (3-41) Alkaline Phosphatase 308 U/L (40-129) Total Protein 4.7 g/dL (6.6-8.7) Albumin 0.8 g/dL (3.5-5.2) Globulin 3.9 g/dL Albumin/Globulin Ratio 0.2 (1.0-2.7) Test 06/13/16 04:15 Activated Partial Thromboplast Time 92 SEC (23-33) Sodium Level 128 mEQ/L (135-145) Potassium Level 4.7 mEQ/L (3.4-4.9) Chloride Level 93 mEQ/L (98-107) Carbon Dioxide Level 21 mEQ/L (20-30) Anion Gap 14 (5-15) Blood Urea Nitrogen 46 mg/dL (7-23) Creatinine 1.5 mg/dL (0.7-1.2) Estimat Glomerular Filtration Rate mL/min (>60) Glucose Level 176 mg/dL (74-106) Calcium Level 6.9 mg/dL (8.6-10.2) Total Bilirubin 0.3 mg/dL (0.0-1.2) Aspartate Amino Transf (AST/SGOT) 26 U/L (5-40) Alanine Aminotransferase (ALT/SGPT) 21 U/L (3-41) Alkaline Phosphatase 314 U/L (40-129) Pro-B-Type Natriuretic Peptide 47871 pg/mL (0-450) Total Protein 4.6 g/dL (6.6-8.7) Albumin 0.9 g/dL (3.5-5.2) Globulin 3.7 g/dL Albumin/Globulin Ratio 0.2 (1.0-2.7) Objective: GENERAL: Very contracted individual, poorly responsive. HEENT: Fairly negative. temporal wasting noted. Oropharynx is dry. NECK: Supple. Carotids 2+. trach LUNGS: Coarse breath sounds. Moderate air entry. no wheeze CARDIAC: Normal S1 and S2. Overall, with regular rate and rhythm. Systolic murmur at the left parasternal border. No rubs or gallops. ABDOMEN: Soft, nontender, and nondistended. G-tube in place. No hepatosplenomegaly. EXTREMITIES: No cyanosis or clubbing noted contractures. NEUROLOGIC: Poorly responsive. reviewed and edited Micro: Microbiology Date/Time Source Procedure Growth Status 06/10/16 12:15 Sputum Gram Stain - Final Resulted 06/10/16 12:15 Sputum Culture - Preliminary A.baumanii Complx - Mdr Resulted Accucheck: 211 JACKIE DANIEL Jun 13, 2016 08:59
[2016-06-13 10:37] LABS: BAND NEUTROPHILS % (MANUAL) 27 % (0-8); LYMPHOCYTES % (MANUAL) 10 % (20-45); METAMYELOCYTES % 4 % (0-0); MYELOCYTES % 2 % (0-0); NEUTROPHILS % (MANUAL) 49 % (45-75); TOTAL CELLS COUNTED 100
[2016-06-13 10:38] LABS: ANISOCYTOSIS 1+; BASOPHILS % (MANUAL) 0 % (0-2); EOSINOPHILS % (MANUAL) 0 % (0-3); HYPOCHROMASIA 1+; PLATELET ESTIMATE DECREASED; PLATELET MORPHOLOGY NORMAL
[2016-06-13] MEDS: Vancomycin 1 GM in D5W 275 ML IVPB SCH (11:14)
[2016-06-13] MEDS: Pantoprazole Inj IVP SCH (11:23)
--- NOTE | 2016-06-13 13:27 | General Progress Note ---
Assessment/Plan Problem List: (1) DVT of axillary vein, acute ICD Codes: I82.A19 - Acute embolism and thrombosis of unspecified axillary vein SNOMED: 638676528 (2) Cardiac arrest ICD Codes: I46.9 - Cardiac arrest, cause unspecified SNOMED: 833677484 (3) Sepsis ICD Codes: A41.9 - Sepsis, unspecified organism SNOMED: 95703162 Qualifiers: Qualified Codes: A41.9 - Sepsis, unspecified organism (4) Acute and chronic respiratory failure ([id number]) ICD Codes: J96.20 - Acute and chronic respiratory failure, unspecified whether with hypoxia or hypercapnia SNOMED: 36088163, 77775270 Qualifiers: Qualified Codes: J96.20 - Acute and chronic respiratory failure, unspecified whether with hypoxia or hypercapnia (5) Pneumonia ICD Codes: J18.9 - Pneumonia, unspecified organism SNOMED: 033489587 Qualifiers: Qualified Codes: J18.9 - Pneumonia, unspecified organism (6) Anemia ICD Codes: D64.9 - Anemia, unspecified SNOMED: 068074050 Qualifiers: Qualified Codes: D64.9 - Anemia, unspecified Status: deteriorating Assessment/Plan iv abx follow up cultures picc changed heparin drip pressors monitor uop bolus fluids check stool ob/monitor for bleeding vent support resp rx ivf/gt feeds critical and guarded clinically worse d/w family. aware of worsening condition. family still requesting full code Subjective ROS Limited/Unobtainable: Yes Constitutional: Reports: malaise, weakness HEENT: Reports: no symptoms Cardiovascular: Reports: no symptoms Respiratory: Reports: shortness of breath, sputum Gastrointestinal/Abdominal: Reports: no symptoms Genitourinary: Reports: no symptoms Neurologic/Psychiatric: Reports: pre-existing deficit Endocrine: Reports: no symptoms Hematologic/Lymphatic: Reports: anemia Allergies: Coded Allergies: No Known Allergies (Unverified , 06/09/16) All Systems: reviewed and negative except above Subjective remains on pressors- increased pressor requirements. +dvt. on heparin drip. poor uop. bp remains on the low side. positive cultures noted. mostly unresponsive Objective Last 24 Hour Vital Signs Date Time Temp Pulse Resp B/P Pulse Ox O2 Delivery O2 Flow Rate FiO2 06/13/16 12:51 105 22 40 06/13/16 12:00 40 06/13/16 12:00 95 06/13/16 11:15 98 24 96/54 99 Mechanical Ventilator 40 06/13/16 11:02 101 22 40 06/13/16 11:00 94 24 84/54 99 Mechanical Ventilator 40 06/13/16 10:45 100 24 88/38 99 Mechanical Ventilator 40 06/13/16 10:30 99 24 92/54 99 Mechanical Ventilator 40 06/13/16 10:15 100 24 90/54 99 Mechanical Ventilator 40 06/13/16 10:00 99 24 89/41 99 Mechanical Ventilator 40 06/13/16 09:45 100 24 87/54 99 Mechanical Ventilator 40 06/13/16 09:30 103 24 92/45 99 Mechanical Ventilator 40 06/13/16 09:15 95 24 92/47 99 Mechanical Ventilator 40 06/13/16 09:14 102 22 40 06/13/16 09:00 103 24 88/51 99 Mechanical Ventilator 40 06/13/16 08:45 102 24 92/48 99 Mechanical Ventilator 40 06/13/16 08:30 101 24 88/52 99 Mechanical Ventilator 40 06/13/16 08:15 100 24 86/52 99 Mechanical Ventilator 40 06/13/16 08:00 40 06/13/16 08:00 92 06/13/16 08:00 98.6 99 24 88/50 99 Mechanical Ventilator 40 06/13/16 07:45 100 24 88/51 99 Mechanical Ventilator 40 06/13/16 07:30 99 24 84/50 99 Mechanical Ventilator 40 06/13/16 07:15 95 22 40 06/13/16 07:15 104 24 86/40 99 Mechanical Ventilator 40 06/13/16 07:00 96 24 93/54 99 Mechanical Ventilator 40 06/13/16 06:45 95 24 81/50 99 Mechanical Ventilator 40 06/13/16 06:30 93 24 83/46 99 Mechanical Ventilator 40 06/13/16 06:15 93 24 79/46 99 Mechanical Ventilator 40 06/13/16 06:00 93 22 81/44 99 Mechanical Ventilator 40 06/13/16 06:00 81/44 06/13/16 05:45 94 22 77/49 100 Mechanical Ventilator 40 06/13/16 05:30 92 23 81/48 100 Mechanical Ventilator 40 06/13/16 05:23 96 22 40 06/13/16 05:15 97 25 73/50 100 Mechanical Ventilator 40 06/13/16 05:00 92 23 79/46 100 Mechanical Ventilator 40 06/13/16 05:00 79/46 06/13/16 04:45 93 22 83/45 100 Mechanical Ventilator 40 06/13/16 04:30 86 23 83/46 98 Mechanical Ventilator 40 06/13/16 04:00 86 06/13/16 04:00 40 06/13/16 04:00 94.5 86 22 91/49 99 Mechanical Ventilator 40 06/13/16 04:00 91/49 06/13/16 03:30 98 22 92/50 99 Mechanical Ventilator 40 06/13/16 03:00 92/54 06/13/16 03:00 96 22 92/54 99 Mechanical Ventilator 40 06/13/16 02:57 96 22 40 06/13/16 02:45 97 22 93/55 99 Mechanical Ventilator 40 06/13/16 02:30 94 20 105/55 99 Mechanical Ventilator 40 06/13/16 02:15 91 20 84/50 99 Mechanical Ventilator 40 06/13/16 02:00 91 19 88/53 99 Mechanical Ventilator 40 06/13/16 02:00 88/53 06/13/16 01:45 91 19 87/53 99 Mechanical Ventilator 40 06/13/16 01:30 91 19 92/59 100 Mechanical Ventilator 40 06/13/16 01:15 91 19 85/52 100 Mechanical Ventilator 40 06/13/16 01:12 87 22 40 06/13/16 01:00 88 19 85/53 100 Mechanical Ventilator 40 06/13/16 01:00 85/33 06/13/16 00:45 87 20 85/55 100 Mechanical Ventilator 40 06/13/16 00:30 88 20 83/50 100 Mechanical Ventilator 40 06/13/16 00:15 87 19 82/52 100 Mechanical Ventilator 40 06/13/16 00:00 94.4 89 22 85/47 100 Mechanical Ventilator 40 06/13/16 00:00 40 06/13/16 00:00 89 06/13/16 00:00 85/47 06/12/16 23:30 95 22 104/62 100 Mechanical Ventilator 40 06/12/16 23:15 94 22 40 06/12/16 23:00 108/66 06/12/16 23:00 95 22 108/66 100 Mechanical Ventilator 40 06/12/16 22:30 92 22 106/65 100 Mechanical Ventilator 40 06/12/16 22:00 92 22 111/64 100 Mechanical Ventilator 40 06/12/16 22:00 111/64 06/12/16 21:30 86 22 107/62 100 Mechanical Ventilator 40 06/12/16 21:00 89 32 94/55 100 Mechanical Ventilator 40 06/12/16 21:00 94/55 06/12/16 20:59 86 22 40 06/12/16 20:30 88 32 95/54 100 Mechanical Ventilator 40 06/12/16 20:00 89 21 117/62 100 Mechanical Ventilator 40 06/12/16 20:00 89 06/12/16 20:00 40 06/12/16 20:00 117/62 06/12/16 19:30 94.5 85 20 116/61 100 Mechanical Ventilator 40 06/12/16 19:10 88 22 40 06/12/16 19:00 116/59 06/12/16 19:00 86 22 116/59 100 Mechanical Ventilator 40 06/12/16 18:00 87 22 111/54 100 Mechanical Ventilator 40 06/12/16 17:30 99 22 108/58 100 Mechanical Ventilator 40 06/12/16 17:00 100 22 101/54 100 Mechanical Ventilator 40 06/12/16 17:00 108/58 06/12/16 16:50 90 22 40 06/12/16 16:47 100 22 101/54 100 Mechanical Ventilator 40 06/12/16 16:30 97.4 90 21 104/50 100 Mechanical Ventilator 40 06/12/16 16:00 100 06/12/16 16:00 94 22 110/59 100 Mechanical Ventilator 40 06/12/16 16:00 110/59 06/12/16 16:00 40 06/12/16 15:30 92 22 99/57 100 Mechanical Ventilator 40 06/12/16 15:22 94 22 40 06/12/16 15:00 94 22 100/22 100 Mechanical Ventilator 40 06/12/16 15:00 100/59 06/12/16 14:38 104/58 06/12/16 14:30 95 22 107/60 100 Mechanical Ventilator 40 06/12/16 14:00 95 22 112/46 100 Mechanical Ventilator 40 06/12/16 13:30 94 22 109/60 100 Mechanical Ventilator 40 Intake and Output 3/21/17 3/22/17 19:00 07:00 Intake Total 2170.209 ml 2041.49 ml Output Total 0 ml 5 ml Balance 2170.209 ml 2036.49 ml Intake Free Water 35 ml IV Total 1585.209 ml 1391.49 ml Tube Feeding 550 ml 650 ml Output Urine Total 0 ml 5 ml # Voids 5 # Bowel Movements 1 3 Laboratory Tests 06/13/16 04:00: White Blood Count 8.9, Red Blood Count 3.39L, Hemoglobin 9.7L, Hematocrit 30.6L , Mean Corpuscular Volume 90, Mean Corpuscular Hemoglobin 28.5, Mean Corpuscular Hemoglobin Concent 31.5L, Red Cell Distribution Width 16.7H, Platelet Count 91L, Mean Platelet Volume 10.7H, Neutrophils (%) (Auto) , Lymphocytes (%) (Auto) , Monocytes (%) (Auto) , Eosinophils (%) (Auto) , Basophils (%) (Auto) , Differential Total Cells Counted 100, Neutrophils % ( Manual) 49, Lymphocytes % (Manual) 10L, Monocytes % (Manual) 8, Eosinophils % ( Manual) 0, Basophils % (Manual) 0, Metamyelocytes % 4H, Myelocytes % 2H, Band Neutrophils 27H, Platelet Estimate DecreasedL, Platelet Morphology Normal, Hypochromasia 1+, Anisocytosis 1+ 06/13/16 04:15: Activated Partial Thromboplast Time 92H, Sodium Level 128L, Potassium Level 4.7 , Chloride Level 93L, Carbon Dioxide Level 21, Anion Gap 14, Blood Urea Nitrogen 46H, Creatinine 1.5H, Estimat Glomerular Filtration Rate , Glucose Level 176H, Calcium Level 6.9L, Total Bilirubin 0.3, Aspartate Amino Transf (AST /SGOT) 26, Alanine Aminotransferase (ALT/SGPT) 21, Alkaline Phosphatase 314H, Pro-B-Type Natriuretic Peptide 16702S, Total Protein 4.6L, Albumin 0.9L, Globulin 3.7, Albumin/Globulin Ratio 0.2L Height (Feet): 5 Height (Inches): 8.00 Weight (Pounds): 138 Objective General Appearance: WD/WN, lethargic, thin Neck: supple Cardiovascular: normal rate Respiratory/Chest: rhonchi - bilaterally, expiratory wheezing Abdomen: normal bowel sounds, non tender, soft, no organomegaly Edema: no edema noted Arm (L), no edema noted Arm (R), no edema noted Leg (L), no edema noted Leg (R), no edema noted Pedal (L), no edema noted Pedal (R), no edema noted Generalized Neurologic: unresponsive MYLES AGUIRRE Jun 13, 2016 13:27
--- NOTE | 2016-06-13 14:38 | Infectious Diseases Prog Note ---
Assessment/Plan Assessment/Plan A; Staph aureus sepsis, MRSA s/p code blue Pneumonia with MDR Acinetobacter Septic shock DVT of legs VDRF Pressure ulcers Anemia hyponatremia P; Continue Vancomycin , change Zosyn to Colistin inhaler PICC line was changed Will f/u cultures Subjective ROS Limited/Unobtainable: Yes Allergies: Coded Allergies: No Known Allergies (Unverified , 06/09/16) Objective Vital Signs Last 24 Hour Vital Signs Date Time Temp Pulse Resp B/P Pulse Ox O2 Delivery O2 Flow Rate FiO2 06/13/16 12:51 105 22 40 06/13/16 12:00 40 06/13/16 12:00 95 06/13/16 11:15 98 24 96/54 99 Mechanical Ventilator 40 06/13/16 11:02 101 22 40 06/13/16 11:00 94 24 84/54 99 Mechanical Ventilator 40 06/13/16 10:45 100 24 88/38 99 Mechanical Ventilator 40 06/13/16 10:30 99 24 92/54 99 Mechanical Ventilator 40 06/13/16 10:15 100 24 90/54 99 Mechanical Ventilator 40 06/13/16 10:00 99 24 89/41 99 Mechanical Ventilator 40 06/13/16 09:45 100 24 87/54 99 Mechanical Ventilator 40 06/13/16 09:30 103 24 92/45 99 Mechanical Ventilator 40 06/13/16 09:15 95 24 92/47 99 Mechanical Ventilator 40 06/13/16 09:14 102 22 40 06/13/16 09:00 103 24 88/51 99 Mechanical Ventilator 40 06/13/16 08:45 102 24 92/48 99 Mechanical Ventilator 40 06/13/16 08:30 101 24 88/52 99 Mechanical Ventilator 40 06/13/16 08:15 100 24 86/52 99 Mechanical Ventilator 40 06/13/16 08:00 40 06/13/16 08:00 92 06/13/16 08:00 98.6 99 24 88/50 99 Mechanical Ventilator 40 06/13/16 07:45 100 24 88/51 99 Mechanical Ventilator 40 06/13/16 07:30 99 24 84/50 99 Mechanical Ventilator 40 06/13/16 07:15 95 22 40 06/13/16 07:15 104 24 86/40 99 Mechanical Ventilator 40 06/13/16 07:00 96 24 93/54 99 Mechanical Ventilator 40 06/13/16 06:45 95 24 81/50 99 Mechanical Ventilator 40 06/13/16 06:30 93 24 83/46 99 Mechanical Ventilator 40 06/13/16 06:15 93 24 79/46 99 Mechanical Ventilator 40 06/13/16 06:00 93 22 81/44 99 Mechanical Ventilator 40 06/13/16 06:00 81/44 06/13/16 05:45 94 22 77/49 100 Mechanical Ventilator 40 06/13/16 05:30 92 23 81/48 100 Mechanical Ventilator 40 06/13/16 05:23 96 22 40 06/13/16 05:15 97 25 73/50 100 Mechanical Ventilator 40 06/13/16 05:00 92 23 79/46 100 Mechanical Ventilator 40 06/13/16 05:00 79/46 06/13/16 04:45 93 22 83/45 100 Mechanical Ventilator 40 06/13/16 04:30 86 23 83/46 98 Mechanical Ventilator 40 06/13/16 04:00 86 06/13/16 04:00 40 06/13/16 04:00 94.5 86 22 91/49 99 Mechanical Ventilator 40 06/13/16 04:00 91/49 06/13/16 03:30 98 22 92/50 99 Mechanical Ventilator 40 06/13/16 03:00 92/54 06/13/16 03:00 96 22 92/54 99 Mechanical Ventilator 40 06/13/16 02:57 96 22 40 06/13/16 02:45 97 22 93/55 99 Mechanical Ventilator 40 06/13/16 02:30 94 20 105/55 99 Mechanical Ventilator 40 06/13/16 02:15 91 20 84/50 99 Mechanical Ventilator 40 06/13/16 02:00 91 19 88/53 99 Mechanical Ventilator 40 06/13/16 02:00 88/53 06/13/16 01:45 91 19 87/53 99 Mechanical Ventilator 40 06/13/16 01:30 91 19 92/59 100 Mechanical Ventilator 40 06/13/16 01:15 91 19 85/52 100 Mechanical Ventilator 40 06/13/16 01:12 87 22 40 06/13/16 01:00 88 19 85/53 100 Mechanical Ventilator 40 06/13/16 01:00 85/33 06/13/16 00:45 87 20 85/55 100 Mechanical Ventilator 40 06/13/16 00:30 88 20 83/50 100 Mechanical Ventilator 40 06/13/16 00:15 87 19 82/52 100 Mechanical Ventilator 40 06/13/16 00:00 94.4 89 22 85/47 100 Mechanical Ventilator 40 06/13/16 00:00 40 06/13/16 00:00 89 06/13/16 00:00 85/47 06/12/16 23:30 95 22 104/62 100 Mechanical Ventilator 40 06/12/16 23:15 94 22 40 06/12/16 23:00 108/66 06/12/16 23:00 95 22 108/66 100 Mechanical Ventilator 40 06/12/16 22:30 92 22 106/65 100 Mechanical Ventilator 40 06/12/16 22:00 92 22 111/64 100 Mechanical Ventilator 40 06/12/16 22:00 111/64 06/12/16 21:30 86 22 107/62 100 Mechanical Ventilator 40 06/12/16 21:00 89 32 94/55 100 Mechanical Ventilator 40 06/12/16 21:00 94/55 06/12/16 20:59 86 22 40 06/12/16 20:30 88 32 95/54 100 Mechanical Ventilator 40 06/12/16 20:00 89 21 117/62 100 Mechanical Ventilator 40 06/12/16 20:00 89 06/12/16 20:00 40 06/12/16 20:00 117/62 06/12/16 19:30 94.5 85 20 116/61 100 Mechanical Ventilator 40 06/12/16 19:10 88 22 40 06/12/16 19:00 116/59 06/12/16 19:00 86 22 116/59 100 Mechanical Ventilator 40 06/12/16 18:00 87 22 111/54 100 Mechanical Ventilator 40 06/12/16 17:30 99 22 108/58 100 Mechanical Ventilator 40 06/12/16 17:00 100 22 101/54 100 Mechanical Ventilator 40 06/12/16 17:00 108/58 06/12/16 16:50 90 22 40 06/12/16 16:47 100 22 101/54 100 Mechanical Ventilator 40 06/12/16 16:30 97.4 90 21 104/50 100 Mechanical Ventilator 40 06/12/16 16:00 100 06/12/16 16:00 94 22 110/59 100 Mechanical Ventilator 40 06/12/16 16:00 110/59 06/12/16 16:00 40 06/12/16 15:30 92 22 99/57 100 Mechanical Ventilator 40 06/12/16 15:22 94 22 40 06/12/16 15:00 94 22 100/22 100 Mechanical Ventilator 40 06/12/16 15:00 100/59 06/12/16 14:38 104/58 Height (Feet): 5 Height (Inches): 8.00 Weight (Pounds): 138 HEENT: status post trach Respiratory/Chest: decreased breath sounds, other - on ventilator Cardiovascular: tachycardia, other - hypotensive on Levophed Abdomen: soft, non tender, other - GT feeding Extremities: other - generalized edema, R arm PICC line Neurologic/Psychiatric: unresponsiveness Laboratory Tests Test 06/13/16 04:00 06/13/16 04:15 White Blood Count 8.9 K/UL (4.8-10.8) Red Blood Count 3.39 M/UL (4.70-6.10) L Hemoglobin 9.7 G/DL (14.2-18.0) L Hematocrit 30.6 % (42.0-52.0) L Mean Corpuscular Volume 90 FL (80-99) Mean Corpuscular Hemoglobin 28.5 PG (27.0-31.0) Mean Corpuscular Hemoglobin Concent 31.5 G/DL (32.0-36.0) L Red Cell Distribution Width 16.7 % (11.6-14.8) H Platelet Count 91 K/UL (150-450) L Mean Platelet Volume 10.7 FL (6.5-10.1) H Neutrophils (%) (Auto) % (45.0-75.0) Lymphocytes (%) (Auto) % (20.0-45.0) Monocytes (%) (Auto) % (1.0-10.0) Eosinophils (%) (Auto) % (0.0-3.0) Basophils (%) (Auto) % (0.0-2.0) Differential Total Cells Counted 100 Neutrophils % (Manual) 49 % (45-75) Lymphocytes % (Manual) 10 % (20-45) L Monocytes % (Manual) 8 % (1-10) Eosinophils % (Manual) 0 % (0-3) Basophils % (Manual) 0 % (0-2) Metamyelocytes % 4 % (0-0) H Myelocytes % 2 % (0-0) H Band Neutrophils 27 % (0-8) H Platelet Estimate Decreased L Platelet Morphology Normal Hypochromasia 1+ Anisocytosis 1+ Activated Partial Thromboplast Time 92 SEC (23-33) H Sodium Level 128 mEQ/L (135-145) L Potassium Level 4.7 mEQ/L (3.4-4.9) Chloride Level 93 mEQ/L (98-107) L Carbon Dioxide Level 21 mEQ/L (20-30) Anion Gap 14 (5-15) Blood Urea Nitrogen 46 mg/dL (7-23) H Creatinine 1.5 mg/dL (0.7-1.2) H Estimat Glomerular Filtration Rate mL/min (>60) Glucose Level 176 mg/dL (74-106) H Calcium Level 6.9 mg/dL (8.6-10.2) L Total Bilirubin 0.3 mg/dL (0.0-1.2) Aspartate Amino Transf (AST/SGOT) 26 U/L (5-40) Alanine Aminotransferase (ALT/SGPT) 21 U/L (3-41) Alkaline Phosphatase 314 U/L (40-129) H Pro-B-Type Natriuretic Peptide 78207 pg/mL (0-450) H Total Protein 4.6 g/dL (6.6-8.7) L Albumin 0.9 g/dL (3.5-5.2) L Globulin 3.7 g/dL Albumin/Globulin Ratio 0.2 (1.0-2.7) L Current Medications Medications (Trade) Dose Ordered Sig/Lulu Route PRN Reason Start Time Stop Time Status Last Admin Dose Admin Acetaminophen (Tylenol) 650 mg Q6H PRN GT Mild Pain/Temp > 100.5 06/10/16 07:45 07/10/16 07:44 Albuterol/ Ipratropium (DuoNeb 0.5-3(2.5)mg/3ml) 3 ml Q4H PRN HHN Shortness of Breath 06/12/16 07:45 06/17/16 07:44 Ascorbic Acid (Vitamin C) 500 mg DAILY GT 06/10/16 09:00 07/10/16 08:59 06/13/16 08:08 Dextrose (Dextrose 50%) STAT PRN IV Hypoglycemia 06/13/16 12:45 07/13/16 12:44 Dextrose/Sodium Chloride 1,000 ml @ 75 mls/hr [id number] IV 06/11/16 14:00 07/11/16 13:59 06/13/16 03:11 Ferrous Sulfate (Feosol) 300 mg DAILY GT 06/10/16 09:00 07/10/16 08:59 06/13/16 08:09 Heparin Sodium/ Dextrose 500 ml @ 18.779 mls/ hr adjust per protocol IV 06/11/16 05:42 07/10/16 20:44 06/12/16 23:55 Insulin Aspart (NovoLOG) BEFORE MEALS AND HS SUBQ 06/13/16 16:30 07/13/16 16:29 Multivitamins (Multivitamin Hexavitamin) 5 ml DAILY GT 06/10/16 09:00 07/10/16 08:59 06/13/16 08:09 Norepinephrine Bitartrate 4 mg/ Dextrose 250 ml @ 0 mls/hr Q24H IV 06/10/16 03:15 07/10/16 03:14 06/12/16 14:38 Pantoprazole (Protonix) 40 mg DAILY IVP 06/13/16 11:30 07/13/16 11:29 06/13/16 11:23 Piperacillin Sod/ Tazobactam Sod/ Dextrose (Zosyn/D5W) 110 ml @ 27.5 mls/hr Q8H IVPB 06/10/16 06:00 06/17/16 05:59 06/13/16 13:33 Sennosides (Senokot) 8.6 mg DAILY GT 06/10/16 09:00 07/10/16 08:59 06/13/16 08:09 Sodium Chloride (NaCl) 1 gm THREE TIMES A DAY NG 06/12/16 10:50 07/11/16 14:59 06/13/16 13:00 Vancomycin HCl (Vanco rx to dose) 1 ea DAILY PRN MISC PER RX PROTOCOL 06/13/16 12:15 06/17/16 08:59 Vancomycin HCl/ Dextrose (Vancomycin/D5W) 275 ml @ 183.708 mls/hr Q24H IVPB 06/12/16 10:00 06/17/16 09:59 06/13/16 11:14 Zinc Sulfate 220 mg 220 mg DAILY GT 06/10/16 09:00 07/10/16 08:59 06/13/16 08:08 MATT LARSON Jun 13, 2016 14:38
[2016-06-13] MEDS: Colistin for inhalation INH SCH ×2 (15:00→21:35)
[2016-06-13] MEDS ORDERED: NovoLOG Insulin Flexpen SUBQ SCH (16:30)
[2016-06-13] MEDS: NovoLOG Insulin Flexpen SUBQ SCH (17:50)
[2016-06-14] VITALS (85 sets, daily range): BP systolic 55–117; BP diastolic 10–47
[2016-06-14] MEDS: NovoLOG Insulin Flexpen SUBQ SCH ×5 (00:01→23:53)
[2016-06-14] MEDS: Heparin 25,000u/D5W 500ml 500 ML IV SCH (02:50)
--- NOTE | 2016-06-14 02:58 | Progress Note ---
DATE: 06/13/2016 CARDIOLOGY PROGRESS NOTE SUBJECTIVE: The patient remains in the intensive care unit. Condition remains critical. Prognosis remains guarded. The patient is on full ventilator support. Poorly responsive. He requires increasing doses of pressors for maintaining adequate perfusion. He continues to be on IV heparin because of the DVT and he remains on broad-spectrum intravenous antibiotics. OBJECTIVE: VITAL SIGNS: Blood pressure 84/54, pulse 94, and respirations 24. LUNGS: Bilateral breath sounds. Ventilated via trach. HEART: Regular rhythm and rate. Normal S1 and S2. ABDOMEN: Soft and distended. EXTREMITIES: With dependent edema. IMPRESSION: 1. Multiorgan system failure. 2. Sepsis with shock. 3. Acute deep venous thrombosis. 4. Status post cardiac arrest. PLAN: 1. Full anticoagulation. 2. Antimicrobials. 3. Ventilator support. 4. Taper pressors as able. 5. IV fluid hydration. 6. Nutrition by feeding tube. 7. Family members are aware of critical condition. Eddie Britt M.D. DR: ROSENDA JOB#: [id number] CC:
[2016-06-14 04:35] LABS: MEAN CORPUSCULAR HEMOGLOBIN 28.6 PG (27.0-31.0); MEAN CORPUSCULAR HGB CONC 31.2 G/DL (32.0-36.0); MEAN CORPUSCULAR VOLUME 92 FL (80-99); MEAN PLATELET VOLUME 13.4 FL (6.5-10.1); PLATELET COUNT 67 K/UL (150-450); RED BLOOD COUNT 3.49 M/UL (4.70-6.10); RED CELL DISTRIBUTION WIDTH 17.3 % (11.6-14.8); WHITE BLOOD COUNT 9.9 K/UL (4.8-10.8)
[2016-06-14 05:04] LABS: ALANINE AMINOTRANSFERASE 21 U/L (3-41); ALBUMIN/GLOBULIN RATIO 0.1 (1.0-2.7); ANION GAP 17 (5-15); ASPARTATE AMINO TRANSFERASE 42 U/L (5-40); CARBON DIOXIDE 19 mEQ/L (20-30); CHLORIDE 87 mEQ/L (98-107); CREATININE 1.9 mg/dL (0.7-1.2); HEMOLYSIS 7; POTASSIUM 4.5 mEQ/L (3.4-4.9); SODIUM 123 mEQ/L (135-145); TOTAL PROTEIN 4.5 g/dL (6.6-8.7)
[2016-06-14] MEDS ORDERED: Heparin 25,000u/D5W 500ml 500 ML IV SCH (05:18)
--- NOTE | 2016-06-14 06:05 | Critical Care Progress Note ---
Assessment/Plan Assessment/Plan IMPRESSION: 1. Sepsis with shock. 2. Hypotension. 3. Electrolyte imbalance. 4. Hyponatremia. 5. Hyperkalemia. 6. Acute renal failure. 7. Severe protein-calorie malnutrition. 8. Chronic encephalopathy. 9. Respiratory acidosis. 10. anemia 11. Bacteremia 12. sacral wound infection 13. acute renal failure 14, acute DVT 15. thrombocytopenia PLAN IV antibiotics and monitor ID follow up noted hematology evaluation; dc heparin start argatobran pressors as needed nutrition as tolerated SNF meds ventilator as is monitor ABG follow up care closely ICU care reviewed labs noted remains critical at present still on pressors update family all meds reviewed not yet stable discussed with all consultants medications/laboratory data/nursing notes/ICU care reviewed in detail note reviewed and edited care discussed with RN and RT ICU time spent 37 minutes Critical Care - Subjective Interval Events: platelets dropping on Heparin still hypotensive ROS Limited/Unobtainable: Yes Condition: critical EKG Rhythm: Sinus Rhythm Residuals: minimal Tube Feeding Tolerated: yes I&O: Intake and Output 06/13/16 06/14/16 19:00 07:00 Intake Total 2361.426 ml 1880.254 ml Output Total 10 ml 15 ml Balance 2351.426 ml 1865.254 ml Intake Free Water 50 ml 100 ml IV Total 1851.426 ml 1500.254 ml Tube Feeding 460 ml 280 ml Output Urine Total 10 ml 15 ml # Bowel Movements 1 3 Critical Care - Objective Last 24 Hour Vital Signs Date Time Temp Pulse Resp B/P Pulse Ox O2 Delivery O2 Flow Rate FiO2 06/14/16 05:30 88 19 103/42 100 Mechanical Ventilator 40 06/14/16 05:24 91 20 35 06/14/16 05:15 94 19 100/42 100 Mechanical Ventilator 40 06/14/16 05:00 90 19 117/42 100 Mechanical Ventilator 40 06/14/16 05:00 117/42 06/14/16 04:45 86 19 94/19 100 Mechanical Ventilator 40 06/14/16 04:33 74/22 06/14/16 04:30 84 19 95/18 100 Mechanical Ventilator 40 06/14/16 04:15 85 19 74/19 100 Mechanical Ventilator 40 06/14/16 04:00 97.5 85 19 74/19 100 Mechanical Ventilator 40 06/14/16 04:00 40 06/14/16 04:00 87 06/14/16 04:00 82/36 06/14/16 03:45 87 19 82/36 100 Mechanical Ventilator 40 06/14/16 03:30 87 19 85/41 100 Mechanical Ventilator 40 06/14/16 03:16 86 22 35 06/14/16 03:15 87 19 84/38 100 Mechanical Ventilator 40 06/14/16 03:00 87 19 81/31 100 Mechanical Ventilator 40 06/14/16 03:00 81/31 06/14/16 02:45 87 19 92/30 100 Mechanical Ventilator 40 06/14/16 02:30 88 19 76/30 100 Mechanical Ventilator 40 06/14/16 02:15 90 19 85/15 100 Mechanical Ventilator 40 06/14/16 02:00 89/20 06/14/16 02:00 89 19 89/20 100 Mechanical Ventilator 40 06/14/16 01:45 89 19 97/18 100 Mechanical Ventilator 40 06/14/16 01:30 89 19 97/26 100 Mechanical Ventilator 40 06/14/16 01:15 87 19 97/26 100 Mechanical Ventilator 40 06/14/16 01:12 88 22 35 06/14/16 01:00 88 19 97/26 100 Mechanical Ventilator 40 06/14/16 01:00 97/18 06/14/16 00:45 88 19 95/23 100 Mechanical Ventilator 40 06/14/16 00:30 87 19 91/36 100 Mechanical Ventilator 40 06/14/16 00:15 83 19 67/18 100 Mechanical Ventilator 40 06/14/16 00:05 83/10 06/14/16 00:00 89 06/14/16 00:00 40 06/14/16 00:00 97.8 86 19 83/10 100 Mechanical Ventilator 40 06/13/16 23:45 84 19 69/23 100 Mechanical Ventilator 40 06/13/16 23:30 88 19 84/25 100 Mechanical Ventilator 40 06/13/16 23:15 86 19 92/27 100 Mechanical Ventilator 40 06/13/16 23:00 83 19 87/25 100 Mechanical Ventilator 40 06/13/16 22:52 93 22 35 06/13/16 22:45 93 19 77/18 100 Mechanical Ventilator 40 06/13/16 22:30 96 19 94/73 100 Mechanical Ventilator 40 06/13/16 22:15 97 23 82/54 100 Mechanical Ventilator 40 06/13/16 22:15 96 23 94/73 100 Mechanical Ventilator 40 06/13/16 22:00 94 20 79/27 100 Mechanical Ventilator 40 06/13/16 22:00 94 22 100 Mechanical Ventilator 35 06/13/16 21:45 96 20 87/21 100 Mechanical Ventilator 40 06/13/16 21:39 30 06/13/16 21:38 94 22 100 Mechanical Ventilator 30 06/13/16 21:30 97 22 89/18 100 Mechanical Ventilator 40 06/13/16 21:15 89 21 87/26 100 Mechanical Ventilator 40 06/13/16 21:10 92 22 35 06/13/16 21:00 88 21 88/32 100 Mechanical Ventilator 40 06/13/16 20:45 88 21 91/36 100 Mechanical Ventilator 40 06/13/16 20:30 88 21 90/31 100 Mechanical Ventilator 40 06/13/16 20:15 87 21 88/26 100 Mechanical Ventilator 40 06/13/16 20:00 96 06/13/16 20:00 97.0 88 21 89/23 100 Mechanical Ventilator 40 06/13/16 20:00 40 06/13/16 19:45 88 21 86/27 100 Mechanical Ventilator 40 06/13/16 19:30 88 22 83/31 99 Mechanical Ventilator 40 06/13/16 19:19 76/34 06/13/16 19:15 84 22 76/34 99 Mechanical Ventilator 40 06/13/16 19:02 88 22 35 06/13/16 19:00 80/20 06/13/16 19:00 89 22 86/24 100 Mechanical Ventilator 40 06/13/16 18:45 89 22 82/20 100 Mechanical Ventilator 40 06/13/16 18:30 93 19 80/35 99 Mechanical Ventilator 40 06/13/16 18:15 88 19 85/21 99 Mechanical Ventilator 40 06/13/16 18:00 88 19 85/21 99 Mechanical Ventilator 40 06/13/16 17:45 89 19 85/20 99 Mechanical Ventilator 40 06/13/16 17:30 89 19 91/25 99 Mechanical Ventilator 40 06/13/16 17:15 90 17 90/19 100 Mechanical Ventilator 40 06/13/16 17:00 89 17 91/21 100 Mechanical Ventilator 40 06/13/16 16:51 92 20 35 06/13/16 16:45 95 17 90/32 100 Mechanical Ventilator 40 06/13/16 16:30 93 17 89/21 100 Mechanical Ventilator 40 06/13/16 16:15 93 17 89/21 100 Mechanical Ventilator 40 06/13/16 16:06 40 06/13/16 16:00 97.8 93 17 86/29 100 Mechanical Ventilator 40 06/13/16 16:00 88 06/13/16 15:45 93 17 89/39 100 Mechanical Ventilator 40 06/13/16 15:30 92 20 96/41 100 Mechanical Ventilator 40 06/13/16 15:15 94 20 87/23 100 Mechanical Ventilator 40 06/13/16 15:00 93 20 92/48 99 Mechanical Ventilator 40 06/13/16 14:57 94 22 40 06/13/16 14:45 95 20 94/40 99 Mechanical Ventilator 40 06/13/16 14:30 94 20 96/48 99 Mechanical Ventilator 40 06/13/16 14:15 92 20 98/44 99 Mechanical Ventilator 40 06/13/16 14:00 95 20 100/48 99 Mechanical Ventilator 40 06/13/16 13:45 96 21 99/20 99 Mechanical Ventilator 40 06/13/16 13:30 97 20 100/49 99 Mechanical Ventilator 40 06/13/16 13:15 97 21 110/31 99 Mechanical Ventilator 40 06/13/16 13:00 98 20 120/37 99 Mechanical Ventilator 40 06/13/16 12:51 105 22 40 06/13/16 12:45 101 21 103/17 99 Mechanical Ventilator 40 06/13/16 12:30 99 20 104/45 99 Mechanical Ventilator 40 06/13/16 12:15 98 24 106/44 99 Mechanical Ventilator 40 06/13/16 12:00 40 06/13/16 12:00 98.2 96 20 112/45 99 Mechanical Ventilator 40 06/13/16 12:00 95 06/13/16 11:45 98 24 99/60 99 Mechanical Ventilator 40 06/13/16 11:30 97 21 95/31 99 Mechanical Ventilator 40 06/13/16 11:15 98 24 96/54 99 Mechanical Ventilator 40 06/13/16 11:02 101 22 40 06/13/16 11:00 94 24 84/54 99 Mechanical Ventilator 40 06/13/16 10:45 100 24 88/38 99 Mechanical Ventilator 40 06/13/16 10:30 99 24 92/54 99 Mechanical Ventilator 40 06/13/16 10:15 100 24 90/54 99 Mechanical Ventilator 40 06/13/16 10:00 99 24 89/41 99 Mechanical Ventilator 40 06/13/16 09:45 100 24 87/54 99 Mechanical Ventilator 40 06/13/16 09:30 103 24 92/45 99 Mechanical Ventilator 40 06/13/16 09:15 95 24 92/47 99 Mechanical Ventilator 40 06/13/16 09:14 102 22 40 06/13/16 09:00 103 24 88/51 99 Mechanical Ventilator 40 06/13/16 08:45 102 24 92/48 99 Mechanical Ventilator 40 06/13/16 08:30 101 24 88/52 99 Mechanical Ventilator 40 06/13/16 08:15 100 24 86/52 99 Mechanical Ventilator 40 06/13/16 08:00 40 06/13/16 08:00 92 06/13/16 08:00 98.6 99 24 88/50 99 Mechanical Ventilator 40 06/13/16 07:45 100 24 88/51 99 Mechanical Ventilator 40 06/13/16 07:30 99 24 84/50 99 Mechanical Ventilator 40 06/13/16 07:15 95 22 40 06/13/16 07:15 104 24 86/40 99 Mechanical Ventilator 40 06/13/16 07:00 96 24 93/54 99 Mechanical Ventilator 40 06/13/16 06:45 95 24 81/50 99 Mechanical Ventilator 40 06/13/16 06:30 93 24 83/46 99 Mechanical Ventilator 40 06/13/16 06:15 93 24 79/46 99 Mechanical Ventilator 40 Labs: Laboratory Tests Test 06/14/16 04:15 White Blood Count 9.9 K/UL (4.8-10.8) Red Blood Count 3.49 M/UL (4.70-6.10) L Hemoglobin 10.0 G/DL (14.2-18.0) L Hematocrit 32.0 % (42.0-52.0) L Mean Corpuscular Volume 92 FL (80-99) Mean Corpuscular Hemoglobin 28.6 PG (27.0-31.0) Mean Corpuscular Hemoglobin Concent 31.2 G/DL (32.0-36.0) L Red Cell Distribution Width 17.3 % (11.6-14.8) H Platelet Count 67 K/UL (150-450) L Mean Platelet Volume 13.4 FL (6.5-10.1) H Neutrophils (%) (Auto) % (45.0-75.0) Lymphocytes (%) (Auto) % (20.0-45.0) Monocytes (%) (Auto) % (1.0-10.0) Eosinophils (%) (Auto) % (0.0-3.0) Basophils (%) (Auto) % (0.0-2.0) Activated Partial Thromboplast Time 138 SEC (23-33) H Sodium Level 123 mEQ/L (135-145) L Potassium Level 4.5 mEQ/L (3.4-4.9) Chloride Level 87 mEQ/L (98-107) L Carbon Dioxide Level 19 mEQ/L (20-30) L Anion Gap 17 (5-15) H Blood Urea Nitrogen 50 mg/dL (7-23) H Creatinine 1.9 mg/dL (0.7-1.2) H Estimat Glomerular Filtration Rate mL/min (>60) Glucose Level 130 mg/dL (74-106) H Calcium Level 7.0 mg/dL (8.6-10.2) L Total Bilirubin 0.4 mg/dL (0.0-1.2) Aspartate Amino Transf (AST/SGOT) 42 U/L (5-40) H Alanine Aminotransferase (ALT/SGPT) 21 U/L (3-41) Alkaline Phosphatase 267 U/L (40-129) H Total Protein 4.5 g/dL (6.6-8.7) L Albumin 0.7 g/dL (3.5-5.2) L Globulin 3.8 g/dL Albumin/Globulin Ratio 0.1 (1.0-2.7) L Objective: GENERAL: Very contracted individual, poorly responsive. reduced LOC HEENT: Fairly negative. temporal wasting noted. Oropharynx is dry. NECK: Supple. Carotids 2+. trach LUNGS: Coarse breath sounds. Moderate air entry. no wheeze without change CARDIAC: Normal S1 and S2. Overall, with regular rate and rhythm. Systolic murmur at the left parasternal border. No rubs or gallops. ABDOMEN: Soft, nontender, and nondistended. G-tube in place. No hepatosplenomegaly. EXTREMITIES: No cyanosis or clubbing noted contractures. NEUROLOGIC: Poorly responsive. reviewed and edited Accucheck: 137 JACKIE DANIEL Jun 14, 2016 06:05
[2016-06-14] MEDS: D5NS 1,000 ML IV SCH ×2 (06:08→17:13)
[2016-06-14] MEDS: Ferrous Sulfate 300 MG/5 ML UDC GT SCH (08:13)
[2016-06-14] MEDS: Multivitamin 5ml Liquid GT SCH (08:13)
[2016-06-14] MEDS: Sodium Chloride 1gm Tab NG SCH ×3 (08:14→17:46)
[2016-06-14] MEDS: Pantoprazole Inj IVP SCH (08:14)
[2016-06-14] MEDS: Ascorbic Acid 500mg tab GT SCH (08:14)
[2016-06-14] MEDS: Zinc Sulfate 220mg cap GT SCH (08:14)
[2016-06-14 08:42] LABS: OTHERS PATHOLOGIST COMMENT
[2016-06-14] MEDS: Colistin for inhalation INH SCH ×2 (09:33→21:11)
[2016-06-14] MEDS: Vancomycin 1 GM in D5W 275 ML IVPB SCH (10:19)
[2016-06-14] MEDS: NOREPINEPHRINE BITARTRATE IV SCH ×3 (10:20→22:40)
[2016-06-14] MEDS: D5W IV SCH ×3 (10:20→22:40)
[2016-06-14] MEDS ORDERED: Argatroban per pharmacy MISC PRN (13:00)
--- NOTE | 2016-06-14 13:12 | General Progress Note ---
Assessment/Plan Problem List: (1) DVT of axillary vein, acute ICD Codes: I82.A19 - Acute embolism and thrombosis of unspecified axillary vein SNOMED: 386147674 (2) Cardiac arrest ICD Codes: I46.9 - Cardiac arrest, cause unspecified SNOMED: 095767194 (3) Sepsis ICD Codes: A41.9 - Sepsis, unspecified organism SNOMED: 51966273 Qualifiers: Qualified Codes: A41.9 - Sepsis, unspecified organism (4) Acute and chronic respiratory failure ([id number]) ICD Codes: J96.20 - Acute and chronic respiratory failure, unspecified whether with hypoxia or hypercapnia SNOMED: 42919844, [id number] Qualifiers: Qualified Codes: J96.20 - Acute and chronic respiratory failure, unspecified whether with hypoxia or hypercapnia (5) Pneumonia ICD Codes: J18.9 - Pneumonia, unspecified organism SNOMED: 208322778 Qualifiers: Qualified Codes: J18.9 - Pneumonia, unspecified organism (6) Anemia ICD Codes: D64.9 - Anemia, unspecified SNOMED: 924002424 Qualifiers: Qualified Codes: D64.9 - Anemia, unspecified Status: deteriorating Assessment/Plan iv abx follow up cultures picc changed heparin drip pressors monitor uop bolus fluids check stool ob/monitor for bleeding vent support resp rx ivf/gt feeds critical and guarded. prognosis grim clinically worse d/w family. aware of worsening condition. 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 on high dose pressors. minimal; uop. multiple iv abx. on ivf. Objective Last 24 Hour Vital Signs Date Time Temp Pulse Resp B/P Pulse Ox O2 Delivery O2 Flow Rate FiO2 06/14/16 11:30 91 22 35 06/14/16 10:20 84/35 06/14/16 09:40 103 22 100 Mechanical Ventilator 35 06/14/16 09:30 95 22 100 Mechanical Ventilator 30 06/14/16 09:30 95 22 35 06/14/16 09:30 30 06/14/16 09:15 89 21 103/22 100 Mechanical Ventilator 40 06/14/16 09:00 96 19 105/38 100 Mechanical Ventilator 40 06/14/16 08:45 86 19 97/20 100 Mechanical Ventilator 40 06/14/16 08:30 86 19 94/28 100 Mechanical Ventilator 40 06/14/16 08:15 84 19 92/34 100 Mechanical Ventilator 40 06/14/16 08:04 68/24 06/14/16 08:00 98.3 85 19 88/17 100 Mechanical Ventilator 40 06/14/16 08:00 40 06/14/16 07:45 83 19 68/30 100 Mechanical Ventilator 40 06/14/16 07:30 86 19 68/20 100 Mechanical Ventilator 40 06/14/16 07:15 89 19 84/12 100 Mechanical Ventilator 40 06/14/16 07:00 83/16 06/14/16 07:00 85 19 83/16 100 Mechanical Ventilator 40 06/14/16 06:45 86 19 84/17 100 Mechanical Ventilator 40 06/14/16 06:35 102 22 35 06/14/16 06:30 87 19 83/24 100 Mechanical Ventilator 40 06/14/16 06:15 87 19 83/15 100 Mechanical Ventilator 40 06/14/16 06:08 83/16 06/14/16 06:00 89 19 92/26 100 Mechanical Ventilator 40 06/14/16 05:45 87 19 92/26 100 Mechanical Ventilator 40 06/14/16 05:30 88 19 103/42 100 Mechanical Ventilator 40 06/14/16 05:24 91 20 35 06/14/16 05:15 94 19 100/42 100 Mechanical Ventilator 40 06/14/16 05:00 90 19 117/42 100 Mechanical Ventilator 40 06/14/16 05:00 117/42 06/14/16 04:45 86 19 94/19 100 Mechanical Ventilator 40 06/14/16 04:33 74/22 06/14/16 04:30 84 19 95/18 100 Mechanical Ventilator 40 06/14/16 04:15 85 19 74/19 100 Mechanical Ventilator 40 06/14/16 04:00 97.5 85 19 74/19 100 Mechanical Ventilator 40 06/14/16 04:00 40 06/14/16 04:00 87 06/14/16 04:00 82/36 06/14/16 03:45 87 19 82/36 100 Mechanical Ventilator 40 06/14/16 03:30 87 19 85/41 100 Mechanical Ventilator 40 06/14/16 03:16 86 22 35 06/14/16 03:15 87 19 84/38 100 Mechanical Ventilator 40 06/14/16 03:00 87 19 81/31 100 Mechanical Ventilator 40 06/14/16 03:00 81/31 06/14/16 02:45 87 19 92/30 100 Mechanical Ventilator 40 06/14/16 02:30 88 19 76/30 100 Mechanical Ventilator 40 06/14/16 02:15 90 19 85/15 100 Mechanical Ventilator 40 06/14/16 02:00 89/20 06/14/16 02:00 89 19 89/20 100 Mechanical Ventilator 40 06/14/16 01:45 89 19 97/18 100 Mechanical Ventilator 40 06/14/16 01:30 89 19 97/26 100 Mechanical Ventilator 40 06/14/16 01:15 87 19 97/26 100 Mechanical Ventilator 40 06/14/16 01:12 88 22 35 06/14/16 01:00 88 19 97/26 100 Mechanical Ventilator 40 06/14/16 01:00 97/18 06/14/16 00:45 88 19 95/23 100 Mechanical Ventilator 40 06/14/16 00:30 87 19 91/36 100 Mechanical Ventilator 40 06/14/16 00:15 83 19 67/18 100 Mechanical Ventilator 40 06/14/16 00:05 83/10 06/14/16 00:00 89 06/14/16 00:00 40 06/14/16 00:00 97.8 86 19 83/10 100 Mechanical Ventilator 40 06/13/16 23:45 84 19 69/23 100 Mechanical Ventilator 40 06/13/16 23:30 88 19 84/25 100 Mechanical Ventilator 40 06/13/16 23:15 86 19 92/27 100 Mechanical Ventilator 40 06/13/16 23:00 83 19 87/25 100 Mechanical Ventilator 40 06/13/16 22:52 93 22 35 06/13/16 22:45 93 19 77/18 100 Mechanical Ventilator 40 06/13/16 22:30 96 19 94/73 100 Mechanical Ventilator 40 06/13/16 22:15 97 23 82/54 100 Mechanical Ventilator 40 06/13/16 22:15 96 23 94/73 100 Mechanical Ventilator 40 06/13/16 22:00 94 20 79/27 100 Mechanical Ventilator 40 06/13/16 22:00 94 22 100 Mechanical Ventilator 35 06/13/16 21:45 96 20 87/21 100 Mechanical Ventilator 40 06/13/16 21:39 30 06/13/16 21:38 94 22 100 Mechanical Ventilator 30 06/13/16 21:30 97 22 89/18 100 Mechanical Ventilator 40 06/13/16 21:15 89 21 87/26 100 Mechanical Ventilator 40 06/13/16 21:10 92 22 35 06/13/16 21:00 88 21 88/32 100 Mechanical Ventilator 40 06/13/16 20:45 88 21 91/36 100 Mechanical Ventilator 40 06/13/16 20:30 88 21 90/31 100 Mechanical Ventilator 40 06/13/16 20:15 87 21 88/26 100 Mechanical Ventilator 40 06/13/16 20:00 96 06/13/16 20:00 97.0 88 21 89/23 100 Mechanical Ventilator 40 06/13/16 20:00 40 06/13/16 19:45 88 21 86/27 100 Mechanical Ventilator 40 06/13/16 19:30 88 22 83/31 99 Mechanical Ventilator 40 06/13/16 19:19 76/34 06/13/16 19:15 84 22 76/34 99 Mechanical Ventilator 40 06/13/16 19:02 88 22 35 06/13/16 19:00 80/20 06/13/16 19:00 89 22 86/24 100 Mechanical Ventilator 40 06/13/16 18:45 89 22 82/20 100 Mechanical Ventilator 40 06/13/16 18:30 93 19 80/35 99 Mechanical Ventilator 40 06/13/16 18:15 88 19 85/21 99 Mechanical Ventilator 40 06/13/16 18:00 88 19 85/21 99 Mechanical Ventilator 40 06/13/16 17:45 89 19 85/20 99 Mechanical Ventilator 40 06/13/16 17:30 89 19 /25 99 Mechanical Ventilator 40 06/13/16 17:15 90 17 90/19 100 Mechanical Ventilator 40 06/13/16 17:00 89 17 91/21 100 Mechanical Ventilator 40 06/13/16 16:51 92 20 35 06/13/16 16:45 95 17 90/32 100 Mechanical Ventilator 40 06/13/16 16:30 93 17 89/21 100 Mechanical Ventilator 40 06/13/16 16:15 93 17 89/21 100 Mechanical Ventilator 40 06/13/16 16:06 40 06/13/16 16:00 97.8 93 17 86/29 100 Mechanical Ventilator 40 06/13/16 16:00 88 06/13/16 15:45 93 17 89/39 100 Mechanical Ventilator 40 06/13/16 15:30 92 20 96/41 100 Mechanical Ventilator 40 06/13/16 15:15 94 20 87/23 100 Mechanical Ventilator 40 06/13/16 15:00 93 20 92/48 99 Mechanical Ventilator 40 06/13/16 14:57 94 22 40 06/13/16 14:45 95 20 94/40 99 Mechanical Ventilator 40 06/13/16 14:30 94 20 96/48 99 Mechanical Ventilator 40 06/13/16 14:15 92 20 98/44 99 Mechanical Ventilator 40 06/13/16 14:00 95 20 100/48 99 Mechanical Ventilator 40 06/13/16 13:45 96 21 99/20 99 Mechanical Ventilator 40 06/13/16 13:30 97 20 100/49 99 Mechanical Ventilator 40 06/13/16 13:15 97 21 110/31 99 Mechanical Ventilator 40 Intake and Output 06/13/16 06/14/16 19:00 07:00 Intake Total 2361.426 ml 2275.254 ml Output Total 10 ml 15 ml Balance 2351.426 ml 2260.254 ml Intake Free Water 50 ml 100 ml IV Total 1851.426 ml 1815.254 ml Tube Feeding 460 ml 360 ml Output Urine Total 10 ml 15 ml # Bowel Movements 1 3 Laboratory Tests 06/14/16 04:00: Stool Occult Blood Negative 06/14/16 04:15: White Blood Count 9.9, Red Blood Count 3.49L, Hemoglobin 10.0L, Hematocrit 32.0L , Mean Corpuscular Volume 92, Mean Corpuscular Hemoglobin 28.6, Mean Corpuscular Hemoglobin Concent 31.2L, Red Cell Distribution Width 17.3H, Platelet Count 67L, Mean Platelet Volume 13.4H, Neutrophils (%) (Auto) , Lymphocytes (%) (Auto) , Monocytes (%) (Auto) , Eosinophils (%) (Auto) , Basophils (%) (Auto) , Activated Partial Thromboplast Time 138H, Sodium Level 123L, Potassium Level 4.5, Chloride Level 87L, Carbon Dioxide Level 19L, Anion Gap 17H, Blood Urea Nitrogen 50H, Creatinine 1.9H, Estimat Glomerular Filtration Rate , Glucose Level 130H, Calcium Level 7.0L, Total Bilirubin 0.4, Aspartate Amino Transf (AST/SGOT) 42H, Alanine Aminotransferase (ALT/SGPT) 21, Alkaline Phosphatase 267H, Total Protein 4.5L, Albumin 0.7L, Globulin 3.8, Albumin/Globulin Ratio 0.1L 06/14/16 09:00: Activated Partial Thromboplast Time 60H, Vancomycin Level Trough 37.7H, Heparin- PF4 Antibody Screen [Pending] Height (Feet): 5 Height (Inches): 8.00 Weight (Pounds): 138 Objective General Appearance: WD/WN, lethargic, thin Neck: supple Cardiovascular: normal rate Respiratory/Chest: rhonchi - bilaterally, expiratory wheezing Abdomen: normal bowel sounds, non tender, soft, no organomegaly Edema: no edema noted Arm (L), no edema noted Arm (R), no edema noted Leg (L), no edema noted Leg (R), no edema noted Pedal (L), no edema noted Pedal (R), no edema noted Generalized Neurologic: unresponsive MYLES AGUIRRE Jun 14, 2016 13:12
[2016-06-14] MEDS ORDERED: [UNRECOGNIZED DRUG - OTHER] IV SCH ×4 (15:00)
[2016-06-14] MEDS ORDERED: ARGATROBAN IV SCH ×4 (15:00)
--- NOTE | 2016-06-14 15:04 | Infectious Diseases Prog Note ---
Assessment/Plan Assessment/Plan A; Staph aureus sepsis, MRSA s/p code blue Pneumonia with MDR Acinetobacter Septic shock DVT of legs VDRF Pressure ulcers Anemia hyponatremia HIT P; Continue Vancomycin & Colistin inhaler PICC line was changed Poor prognosis Subjective ROS Limited/Unobtainable: Yes Allergies: Coded Allergies: HEPARIN (Unverified Allergy, Severe, SUSPECTED HIT, 06/14/16) Objective Vital Signs Last 24 Hour Vital Signs Date Time Temp Pulse Resp B/P Pulse Ox O2 Delivery O2 Flow Rate FiO2 06/14/16 14:00 90 21 92/18 100 Mechanical Ventilator 40 06/14/16 13:30 91 21 94/19 100 Mechanical Ventilator 40 06/14/16 13:00 90 21 96/34 100 Mechanical Ventilator 40 06/14/16 12:40 89 22 35 06/14/16 12:30 90 21 98/11 100 Mechanical Ventilator 40 06/14/16 12:30 97.0 90 21 93/31 100 Mechanical Ventilator 40 06/14/16 12:00 89 06/14/16 12:00 90 21 102/29 100 Mechanical Ventilator 40 06/14/16 12:00 90 21 93/31 100 Mechanical Ventilator 40 06/14/16 12:00 40 06/14/16 11:30 90 21 99/19 100 Mechanical Ventilator 40 06/14/16 11:30 91 22 35 06/14/16 11:00 90 21 102/26 100 Mechanical Ventilator 40 06/14/16 10:30 89 21 90/25 100 Mechanical Ventilator 40 06/14/16 10:20 84/35 06/14/16 10:00 86 21 92/35 100 Mechanical Ventilator 40 06/14/16 09:40 103 22 100 Mechanical Ventilator 35 06/14/16 09:30 95 22 100 Mechanical Ventilator 30 06/14/16 09:30 95 22 35 06/14/16 09:30 102 21 105/44 100 Mechanical Ventilator 40 06/14/16 09:30 30 06/14/16 09:15 89 21 103/22 100 Mechanical Ventilator 40 06/14/16 09:00 96 19 105/38 100 Mechanical Ventilator 40 06/14/16 08:45 86 19 97/20 100 Mechanical Ventilator 40 06/14/16 08:30 86 19 94/28 100 Mechanical Ventilator 40 06/14/16 08:15 84 19 92/34 100 Mechanical Ventilator 40 06/14/16 08:04 68/24 06/14/16 08:00 87 06/14/16 08:00 98.3 85 19 88/17 100 Mechanical Ventilator 40 06/14/16 08:00 40 06/14/16 07:45 83 19 68/30 100 Mechanical Ventilator 40 06/14/16 07:30 86 19 68/20 100 Mechanical Ventilator 40 06/14/16 07:15 89 19 84/12 100 Mechanical Ventilator 40 06/14/16 07:00 83/16 06/14/16 07:00 85 19 83/16 100 Mechanical Ventilator 40 06/14/16 06:45 86 19 84/17 100 Mechanical Ventilator 40 06/14/16 06:35 102 22 35 06/14/16 06:30 87 19 83/24 100 Mechanical Ventilator 40 06/14/16 06:15 87 19 83/15 100 Mechanical Ventilator 40 06/14/16 06:08 83/16 06/14/16 06:00 89 19 92/26 100 Mechanical Ventilator 40 06/14/16 05:45 87 19 92/26 100 Mechanical Ventilator 40 06/14/16 05:30 88 19 103/42 100 Mechanical Ventilator 40 06/14/16 05:24 91 20 35 06/14/16 05:15 94 19 100/42 100 Mechanical Ventilator 40 06/14/16 05:00 90 19 117/42 100 Mechanical Ventilator 40 06/14/16 05:00 117/42 06/14/16 04:45 86 19 94/19 100 Mechanical Ventilator 40 06/14/16 04:33 74/22 06/14/16 04:30 84 19 95/18 100 Mechanical Ventilator 40 06/14/16 04:15 85 19 74/19 100 Mechanical Ventilator 40 06/14/16 04:00 97.5 85 19 74/19 100 Mechanical Ventilator 40 06/14/16 04:00 40 06/14/16 04:00 87 06/14/16 04:00 82/36 06/14/16 03:45 87 19 82/36 100 Mechanical Ventilator 40 06/14/16 03:30 87 19 85/41 100 Mechanical Ventilator 40 06/14/16 03:16 86 22 35 06/14/16 03:15 87 19 84/38 100 Mechanical Ventilator 40 06/14/16 03:00 87 19 81/31 100 Mechanical Ventilator 40 06/14/16 03:00 81/31 3/23/17 02:45 87 19 92/30 100 Mechanical Ventilator 40 06/14/16 02:30 88 19 76/30 100 Mechanical Ventilator 40 06/14/16 02:15 90 19 85/15 100 Mechanical Ventilator 40 06/14/16 02:00 89/20 06/14/16 02:00 89 19 89/20 100 Mechanical Ventilator 40 06/14/16 01:45 89 19 97/18 100 Mechanical Ventilator 40 06/14/16 01:30 89 19 97/26 100 Mechanical Ventilator 40 06/14/16 01:15 87 19 97/26 100 Mechanical Ventilator 40 06/14/16 01:12 88 22 35 06/14/16 01:00 88 19 97/26 100 Mechanical Ventilator 40 06/14/16 01:00 97/18 06/14/16 00:45 88 19 95/23 100 Mechanical Ventilator 40 06/14/16 00:30 87 19 91/36 100 Mechanical Ventilator 40 06/14/16 00:15 83 19 67/18 100 Mechanical Ventilator 40 06/14/16 00:05 83/10 06/14/16 00:00 89 06/14/16 00:00 40 06/14/16 00:00 97.8 86 19 83/10 100 Mechanical Ventilator 40 06/13/16 23:45 84 19 69/23 100 Mechanical Ventilator 40 06/13/16 23:30 88 19 84/25 100 Mechanical Ventilator 40 06/13/16 23:15 86 19 92/27 100 Mechanical Ventilator 40 06/13/16 23:00 83 19 87/25 100 Mechanical Ventilator 40 06/13/16 22:52 93 22 35 06/13/16 22:45 93 19 77/18 100 Mechanical Ventilator 40 06/13/16 22:30 96 19 94/73 100 Mechanical Ventilator 40 06/13/16 22:15 97 23 82/54 100 Mechanical Ventilator 40 06/13/16 22:15 96 23 94/73 100 Mechanical Ventilator 40 06/13/16 22:00 94 20 79/27 100 Mechanical Ventilator 40 06/13/16 22:00 94 22 100 Mechanical Ventilator 35 06/13/16 21:45 96 20 87/21 100 Mechanical Ventilator 40 06/13/16 21:39 30 06/13/16 21:38 94 22 100 Mechanical Ventilator 30 06/13/16 21:30 97 22 89/18 100 Mechanical Ventilator 40 06/13/16 21:15 89 21 87/26 100 Mechanical Ventilator 40 06/13/16 21:10 92 22 35 06/13/16 21:00 88 21 88/32 100 Mechanical Ventilator 40 06/13/16 20:45 88 21 91/36 100 Mechanical Ventilator 40 06/13/16 20:30 88 21 90/31 100 Mechanical Ventilator 40 06/13/16 20:15 87 21 88/26 100 Mechanical Ventilator 40 06/13/16 20:00 96 06/13/16 20:00 97.0 88 21 89/23 100 Mechanical Ventilator 40 06/13/16 20:00 40 06/13/16 19:45 88 21 86/27 100 Mechanical Ventilator 40 06/13/16 19:30 88 22 83/31 99 Mechanical Ventilator 40 06/13/16 19:19 76/34 06/13/16 19:15 84 22 76/34 99 Mechanical Ventilator 40 06/13/16 19:02 88 22 35 06/13/16 19:00 80/20 06/13/16 19:00 89 22 86/24 100 Mechanical Ventilator 40 06/13/16 18:45 89 22 82/20 100 Mechanical Ventilator 40 06/13/16 18:30 93 19 80/35 99 Mechanical Ventilator 40 06/13/16 18:15 88 19 85/21 99 Mechanical Ventilator 40 06/13/16 18:00 88 19 85/21 99 Mechanical Ventilator 40 06/13/16 17:45 89 19 85/20 99 Mechanical Ventilator 40 06/13/16 17:30 89 19 /25 99 Mechanical Ventilator 40 06/13/16 17:15 90 17 90/19 100 Mechanical Ventilator 40 06/13/16 17:00 89 17 /21 100 Mechanical Ventilator 40 06/13/16 16:51 92 20 35 06/13/16 16:45 95 17 90/32 100 Mechanical Ventilator 40 06/13/16 16:30 93 17 89/21 100 Mechanical Ventilator 40 06/13/16 16:15 93 17 89/21 100 Mechanical Ventilator 40 06/13/16 16:06 40 06/13/16 16:00 97.8 93 17 86/29 100 Mechanical Ventilator 40 06/13/16 16:00 88 06/13/16 15:45 93 17 89/39 100 Mechanical Ventilator 40 06/13/16 15:30 92 20 96/41 100 Mechanical Ventilator 40 06/13/16 15:15 94 20 87/23 100 Mechanical Ventilator 40 Height (Feet): 5 Height (Inches): 8.00 Weight (Pounds): 138 HEENT: status post trach Respiratory/Chest: other - on ventilator, few rhonchi Cardiovascular: other - Hypotensive, on maximum dose of Levophed Extremities: other - generalized edema Laboratory Tests Test 06/14/16 04:00 06/14/16 04:15 06/14/16 09:00 Stool Occult Blood Negative (NEGATIVE) White Blood Count 9.9 K/UL (4.8-10.8) Red Blood Count 3.49 M/UL (4.70-6.10) L Hemoglobin 10.0 G/DL (14.2-18.0) L Hematocrit 32.0 % (42.0-52.0) L Mean Corpuscular Volume 92 FL (80-99) Mean Corpuscular Hemoglobin 28.6 PG (27.0-31.0) Mean Corpuscular Hemoglobin Concent 31.2 G/DL (32.0-36.0) L Red Cell Distribution Width 17.3 % (11.6-14.8) H Platelet Count 67 K/UL (150-450) L Mean Platelet Volume 13.4 FL (6.5-10.1) H Neutrophils (%) (Auto) % (45.0-75.0) Lymphocytes (%) (Auto) % (20.0-45.0) Monocytes (%) (Auto) % (1.0-10.0) Eosinophils (%) (Auto) % (0.0-3.0) Basophils (%) (Auto) % (0.0-2.0) Activated Partial Thromboplast Time 138 SEC (23-33) H 60 SEC (23-33) H Sodium Level 123 mEQ/L (135-145) L Potassium Level 4.5 mEQ/L (3.4-4.9) Chloride Level 87 mEQ/L (98-107) L Carbon Dioxide Level 19 mEQ/L (20-30) L Anion Gap 17 (5-15) H Blood Urea Nitrogen 50 mg/dL (7-23) H Creatinine 1.9 mg/dL (0.7-1.2) H Estimat Glomerular Filtration Rate mL/min (>60) Glucose Level 130 mg/dL (74-106) H Calcium Level 7.0 mg/dL (8.6-10.2) L Total Bilirubin 0.4 mg/dL (0.0-1.2) Aspartate Amino Transf (AST/SGOT) 42 U/L (5-40) H Alanine Aminotransferase (ALT/SGPT) 21 U/L (3-41) Alkaline Phosphatase 267 U/L (40-129) H Total Protein 4.5 g/dL (6.6-8.7) L Albumin 0.7 g/dL (3.5-5.2) L Globulin 3.8 g/dL Albumin/Globulin Ratio 0.1 (1.0-2.7) L Vancomycin Level Trough 37.7 ug/mL (5.0-12.0) H Heparin-PF4 Antibody Screen Pending Current Medications Medications (Trade) Dose Ordered Sig/Lulu Route PRN Reason Start Time Stop Time Status Last Admin Dose Admin Acetaminophen (Tylenol) 650 mg Q6H PRN GT Mild Pain/Temp > 100.5 06/10/16 07:45 07/10/16 07:44 Albuterol/ Ipratropium (DuoNeb 0.5-3(2.5)mg/3ml) 3 ml Q4H PRN HHN Shortness of Breath 06/12/16 07:45 06/17/16 07:44 Argatroban Protocol(Pha) 1 ea 1 ea DAILY PRN MISC Per rx protocol 06/14/16 13:00 07/14/16 12:59 Argatroban/Sodium Chloride (Argatroban/ Sodium Chloride) 250 ml @ 10.06 mls/ hr Q24H IV 06/14/16 15:00 06/19/16 14:59 Ascorbic Acid (Vitamin C) 500 mg DAILY GT 06/10/16 09:00 07/10/16 08:59 06/14/16 08:14 Colistimethate Sodium (Colistin *inhalation use only*) 75 mg Q12HR@10,22 INH 06/13/16 15:00 06/20/16 14:59 06/14/16 09:33 Dextrose (Dextrose 50%) STAT PRN IV Hypoglycemia 06/13/16 12:45 07/13/16 12:44 Dextrose/Sodium Chloride (D5ns) 1,000 ml @ 75 mls/hr [id number] IV 06/11/16 14:00 07/11/16 13:59 06/14/16 06:08 Ferrous Sulfate (Feosol) 300 mg DAILY GT 06/10/16 09:00 07/10/16 08:59 06/14/16 08:13 Insulin Aspart (NovoLOG) Q6HR SUBQ 06/13/16 18:00 07/13/16 17:59 06/14/16 12:55 Multivitamins (Multivitamin Hexavitamin) 5 ml DAILY GT 06/10/16 09:00 07/10/16 08:59 06/14/16 08:13 Norepinephrine Bitartrate 8 mg/ Dextrose 558 ml @ 0 mls/hr Q24H IV 06/14/16 10:00 07/14/16 09:59 06/14/16 10:20 Pantoprazole (Protonix) 40 mg DAILY IVP 06/13/16 11:30 07/13/16 11:29 06/14/16 08:14 Sennosides (Senokot) 8.6 mg DAILY GT 06/10/16 09:00 07/10/16 08:59 06/14/16 08:14 Sodium Chloride (NaCl) 1 gm THREE TIMES A DAY NG 06/12/16 10:50 07/11/16 14:59 06/14/16 12:53 Vancomycin HCl (Vanco rx to dose) 1 ea DAILY PRN MISC PER RX PROTOCOL 06/13/16 12:15 06/17/16 08:59 Vancomycin HCl 750 mg/Sodium Chloride 275 ml @ 183.708 mls/hr Q24H IVPB 06/15/16 09:00 06/20/16 08:59 Zinc Sulfate 220 mg 220 mg DAILY GT 06/10/16 09:00 07/10/16 08:59 06/14/16 08:14 MATT LARSON Jun 14, 2016 15:04
[2016-06-14 17:47] LABS: BILIRUBIN,DIRECT 0.2 mg/dL (0.1-0.3); HEMOLYSIS 8; IRON 48 ug/dL (59-158); LACTATE DEHYDROGENASE 236 U/L (135-230); TOTAL IRON BINDING CAPACITY 64 ug/dL (250-400)
[2016-06-14 17:54] LABS: FERRITIN 1669 ng/mL (10-230)
[2016-06-15] VITALS (76 sets, daily range): BP systolic 36–104; BP diastolic 10–78
--- NOTE | 2016-06-15 03:08 | Progress Note ---
DATE: 06/14/2016 CARDIOLOGY PROGRESS NOTE SUBJECTIVE: The patient remains on pressor support. He remains critical with guarded prognosis. He remains on ventilator support as well. Broad-spectrum antibiotics and heparin drip. OBJECTIVE: VITAL SIGNS: Blood pressure 84/35, pulse 90 to 110, respirations 22, and afebrile. NECK: Thin secretions from the trach. LUNGS: Bilateral rhonchi. HEART: Regular rhythm. Rapid rate. Normal S1, S2. ABDOMEN: Soft. EXTREMITIES: With dependent edema. LABORATORY STUDIES: White count 9.9 and hemoglobin 10. Sodium 123, potassium 4.5, bicarbonate 19, BUN 50, and creatinine 1.9. IMPRESSION: 1. Profound sepsis with shock. 2. Hyponatremia. 3. Metabolic acidosis. 4. Acute on chronic renal failure. 5. Iron deficiency with anemia. 6. Acute on chronic diastolic congestive heart failure. 7. Respiratory failure. 8. Multiorgan system failure. PLAN: 1. Nutrition by feeding tube. 2. Saline hydration. 3. Pressors with taper as able. 4. Ventilator support. 5. Antibiotics per Infectious Disease product/industry consultant. 6. Iron replacement. 7. DVT and stress ulcer prophylaxes. Eddie Britt M.D. DR: JAVIER JOB#: [id number] CC:
[2016-06-15] MEDS: NOREPINEPHRINE BITARTRATE IV SCH ×4 (03:39→19:02)
[2016-06-15] MEDS: D5W IV SCH ×4 (03:39→19:02)
[2016-06-15] MEDS: NovoLOG Insulin Flexpen SUBQ SCH ×3 (05:28→17:47)
[2016-06-15 05:45] LABS: MEAN CORPUSCULAR HEMOGLOBIN 28.5 PG (27.0-31.0); MEAN CORPUSCULAR HGB CONC 31.1 G/DL (32.0-36.0); MEAN CORPUSCULAR VOLUME 92 FL (80-99); MEAN PLATELET VOLUME 12.2 FL (6.5-10.1); PLATELET COUNT 41 K/UL (150-450); RED BLOOD COUNT 3.13 M/UL (4.70-6.10); RED CELL DISTRIBUTION WIDTH 16.9 % (11.6-14.8); WHITE BLOOD COUNT 17.5 K/UL (4.8-10.8)
[2016-06-15 05:48] LABS: ALANINE AMINOTRANSFERASE 22 U/L (3-41); ALBUMIN/GLOBULIN RATIO 0.2 (1.0-2.7); ANION GAP 14 (5-15); ASPARTATE AMINO TRANSFERASE 51 U/L (5-40); CALCIUM 6.9 mg/dL (8.6-10.2); CARBON DIOXIDE 19 mEQ/L (20-30); CHLORIDE 90 mEQ/L (98-107); HEMOLYSIS 5; POTASSIUM 5.1 mEQ/L (3.4-4.9); SODIUM 123 mEQ/L (135-145); TOTAL PROTEIN 4.2 g/dL (6.6-8.7)
[2016-06-15] MEDS ORDERED: Phenylephrine 10mg/ml 5ml vial IV ONE (06:45)
[2016-06-15] MEDS: Phenylephrine 50 MG in D5W 245 ML IV SCH ×3 (06:59→17:48)
[2016-06-15] MEDS: Colistin for inhalation INH SCH (07:56)
[2016-06-15 08:30] LABS: ANISOCYTOSIS 1+; BAND NEUTROPHILS % (MANUAL) 12 % (0-8); BASOPHILS % (MANUAL) 0 % (0-2); EOSINOPHILS % (MANUAL) 0 % (0-3); HYPOCHROMASIA 2+; LYMPHOCYTES % (MANUAL) 7 % (20-45); NEUTROPHILS % (MANUAL) 69 % (45-75); PLATELET ESTIMATE DECREASED; PLATELET MORPHOLOGY NORMAL; TOTAL CELLS COUNTED 100
--- NOTE | 2016-06-15 08:31 | General Progress Note ---
Assessment/Plan Problem List: (1) DVT of axillary vein, acute ICD Codes: I82.A19 - Acute embolism and thrombosis of unspecified axillary vein SNOMED: 876941368 (2) Cardiac arrest ICD Codes: I46.9 - Cardiac arrest, cause unspecified SNOMED: 608535341 (3) Sepsis ICD Codes: A41.9 - Sepsis, unspecified organism SNOMED: 09958376 Qualifiers: Qualified Codes: A41.9 - Sepsis, unspecified organism (4) Acute and chronic respiratory failure ([id number]) ICD Codes: J96.20 - Acute and chronic respiratory failure, unspecified whether with hypoxia or hypercapnia SNOMED: 04266199, [id number] Qualifiers: Qualified Codes: J96.20 - Acute and chronic respiratory failure, unspecified whether with hypoxia or hypercapnia (5) Pneumonia ICD Codes: J18.9 - Pneumonia, unspecified organism SNOMED: 245349186 Qualifiers: Qualified Codes: J18.9 - Pneumonia, unspecified organism (6) Anemia ICD Codes: D64.9 - Anemia, unspecified SNOMED: 553709858 Qualifiers: Qualified Codes: D64.9 - Anemia, unspecified Status: deteriorating Assessment/Plan iv abx follow up cultures off anticoag due to bleeding from trach transfuse pressors monitor uop bolus fluids as needed vent support resp rx ivf/gt feeds critical and guarded. prognosis grim clinically worse d/w family. aware of worsening condition. 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 on high dose pressors.no uop. multiple iv abx. on ivf. off anticoagulation due to bleeding from trach site Objective Last 24 Hour Vital Signs Date Time Temp Pulse Resp B/P Pulse Ox O2 Delivery O2 Flow Rate FiO2 06/15/16 07:00 95 22 35 06/15/16 06:59 90 76/42 06/15/16 06:59 88/41 06/15/16 06:15 93 22 76/37 100 Mechanical Ventilator 40 06/15/16 06:00 76/37 06/15/16 06:00 91 22 75/30 100 Mechanical Ventilator 40 06/15/16 05:45 89 22 78/45 100 Mechanical Ventilator 40 06/15/16 05:30 89 22 85/78 100 Mechanical Ventilator 40 06/15/16 05:15 89 22 35 06/15/16 05:15 89 22 74/19 100 Mechanical Ventilator 40 06/15/16 05:00 80/41 06/15/16 05:00 89 22 89/30 100 Mechanical Ventilator 40 06/15/16 04:45 93 22 80/41 100 Mechanical Ventilator 40 06/15/16 04:30 89 22 97/30 100 Mechanical Ventilator 40 06/15/16 04:15 90 22 86/33 100 Mechanical Ventilator 40 06/15/16 04:00 88 06/15/16 04:00 40 06/15/16 04:00 98.2 88 22 85/24 100 Mechanical Ventilator 40 06/15/16 04:00 86/33 06/15/16 03:45 91 22 84/16 100 Mechanical Ventilator 40 06/15/16 03:39 72/22 06/15/16 03:30 86 22 75/30 100 Mechanical Ventilator 40 06/15/16 03:15 91 22 70/13 100 Mechanical Ventilator 40 06/15/16 03:00 91 22 75/30 100 Mechanical Ventilator 40 06/15/16 03:00 96 22 35 06/15/16 03:00 83/26 06/15/16 02:45 91 22 70/13 100 Mechanical Ventilator 40 06/15/16 02:30 91 22 83/26 100 Mechanical Ventilator 40 06/15/16 02:15 91 22 91/13 100 Mechanical Ventilator 40 06/15/16 02:00 93/22 06/15/16 02:00 92 22 88/22 100 Mechanical Ventilator 40 06/15/16 01:45 92 22 93/22 100 Mechanical Ventilator 40 06/15/16 01:30 92 22 86/38 100 Mechanical Ventilator 40 06/15/16 01:15 92 22 87/26 100 Mechanical Ventilator 40 06/15/16 01:00 89/22 06/15/16 01:00 102 22 35 06/15/16 01:00 92 22 89/22 100 Mechanical Ventilator 40 06/15/16 00:45 92 22 96/22 100 Mechanical Ventilator 40 06/15/16 00:30 93 22 91/10 100 Mechanical Ventilator 40 06/15/16 00:15 92 22 95/30 100 Mechanical Ventilator 40 06/15/16 00:00 92 06/15/16 00:00 96/26 06/15/16 00:00 98.2 92 22 103/35 100 Mechanical Ventilator 40 06/15/16 00:00 40 06/14/16 23:45 94 22 97/46 100 Mechanical Ventilator 40 06/14/16 23:30 91 22 92/19 100 Mechanical Ventilator 40 06/14/16 23:20 101 22 35 06/14/16 23:15 95 22 93/16 100 Mechanical Ventilator 40 06/14/16 23:00 89 22 87/30 100 Mechanical Ventilator 40 06/14/16 22:45 87 22 69/30 100 Mechanical Ventilator 40 06/14/16 22:40 71/27 06/14/16 22:30 90 22 71/27 100 Mechanical Ventilator 40 06/14/16 22:15 89 21 75/38 99 Mechanical Ventilator 40 06/14/16 22:00 100 22 75/29 100 Mechanical Ventilator 40 06/14/16 21:45 89 22 75/47 99 Mechanical Ventilator 40 06/14/16 21:30 101 22 55/26 99 Mechanical Ventilator 40 06/14/16 21:22 96 22 100 Mechanical Ventilator 35 06/14/16 21:15 102 22 75/37 99 Mechanical Ventilator 40 06/14/16 21:12 88 22 35 06/14/16 21:12 35 06/14/16 21:11 87 22 100 Mechanical Ventilator 35 06/14/16 21:00 88 22 90/33 99 Mechanical Ventilator 40 06/14/16 20:45 88 22 90/33 99 Mechanical Ventilator 40 06/14/16 20:30 88 22 94/33 99 Mechanical Ventilator 40 06/14/16 20:15 88 22 94/15 99 Mechanical Ventilator 40 06/14/16 20:00 98.0 87 22 86/24 99 Mechanical Ventilator 40 06/14/16 20:00 40 06/14/16 20:00 92 06/14/16 19:45 88 22 93/22 99 Mechanical Ventilator 40 06/14/16 19:30 88 22 90/33 99 Mechanical Ventilator 40 06/14/16 19:30 100 22 35 06/14/16 19:15 88 22 95/31 99 Mechanical Ventilator 40 06/14/16 19:00 90 22 96/31 99 Mechanical Ventilator 40 06/14/16 18:45 90 22 93/16 99 Mechanical Ventilator 40 06/14/16 18:30 90 22 94/30 99 Mechanical Ventilator 40 06/14/16 18:15 90 20 101/27 99 Mechanical Ventilator 40 06/14/16 18:00 103/25 06/14/16 18:00 88 20 103/25 100 Mechanical Ventilator 40 06/14/16 17:45 91 20 97/24 100 Mechanical Ventilator 40 06/14/16 17:30 91 20 98/28 100 Mechanical Ventilator 40 06/14/16 17:15 90 22 84/31 100 Mechanical Ventilator 40 06/14/16 17:11 98/14 06/14/16 17:00 89 22 98/14 100 Mechanical Ventilator 40 06/14/16 16:45 92 20 100/36 100 Mechanical Ventilator 40 06/14/16 16:44 98 22 35 06/14/16 16:30 91 20 100/36 100 Mechanical Ventilator 40 06/14/16 16:15 90 21 106/32 100 Mechanical Ventilator 40 06/14/16 16:00 92 06/14/16 16:00 97.3 90 21 106/32 100 Mechanical Ventilator 40 06/14/16 16:00 40 06/14/16 15:45 91 21 98/18 100 Mechanical Ventilator 40 06/14/16 15:30 91 21 98/19 100 Mechanical Ventilator 40 06/14/16 15:15 90 21 101/40 100 Mechanical Ventilator 40 06/14/16 15:03 110 22 35 06/14/16 15:00 90 21 98/18 100 Mechanical Ventilator 40 06/14/16 14:30 91 21 101/40 100 Mechanical Ventilator 40 06/14/16 14:00 90 21 92/18 100 Mechanical Ventilator 40 06/14/16 13:30 91 21 94/19 100 Mechanical Ventilator 40 06/14/16 13:00 90 21 96/34 100 Mechanical Ventilator 40 06/14/16 12:40 89 22 35 06/14/16 12:30 90 21 98/11 100 Mechanical Ventilator 40 06/14/16 12:30 97.0 90 21 93/31 100 Mechanical Ventilator 40 06/14/16 12:00 89 06/14/16 12:00 90 21 102/29 100 Mechanical Ventilator 40 06/14/16 12:00 90 21 93/31 100 Mechanical Ventilator 40 06/14/16 12:00 40 06/14/16 11:30 90 21 99/19 100 Mechanical Ventilator 40 06/14/16 11:30 91 22 35 06/14/16 11:00 90 21 102/26 100 Mechanical Ventilator 40 06/14/16 10:30 89 21 90/25 100 Mechanical Ventilator 40 06/14/16 10:20 84/35 06/14/16 10:00 86 21 92/35 100 Mechanical Ventilator 40 06/14/16 09:40 103 22 100 Mechanical Ventilator 35 06/14/16 09:30 95 22 100 Mechanical Ventilator 30 06/14/16 09:30 95 22 35 06/14/16 09:30 102 21 105/44 100 Mechanical Ventilator 40 06/14/16 09:30 30 06/14/16 09:15 89 21 103/22 100 Mechanical Ventilator 40 06/14/16 09:00 96 19 105/38 100 Mechanical Ventilator 40 06/14/16 08:45 86 19 97/20 100 Mechanical Ventilator 40 06/14/16 08:30 86 19 94/28 100 Mechanical Ventilator 40 Intake and Output 06/14/16 06/15/16 19:00 07:00 Intake Total 2223.71 ml 2899.25 ml Output Total 0 ml 0 ml Balance 2223.71 ml 2899.25 ml Intake Free Water 50 ml 50 ml IV Total 1643.71 ml 2299.25 ml Tube Feeding 530 ml 550 ml Output Urine Total 0 ml 0 ml Laboratory Tests 06/14/16 09:00: Activated Partial Thromboplast Time 60H, Vancomycin Level Trough 37.7H, Heparin- PF4 Antibody Screen [Pending] 06/14/16 17:00: Activated Partial Thromboplast Time > 150*H, Haptoglobin 193, Fibrinogen 501H, Fibrin Degradation Products, Quant [Pending], Iron Level 48L, Total Iron Binding Capacity 64L, Percent Iron Saturation 75H, Unsaturated Iron Binding < 16L, Ferritin 1669H, Total Bilirubin 0.3, Direct Bilirubin 0.2, Lactate Dehydrogenase 236H, Vitamin B12 Level 1696H, Folate [Pending] 06/14/16 20:00: Activated Partial Thromboplast Time > 150*H 06/15/16 01:45: Activated Partial Thromboplast Time > 150*H, Total Bilirubin 0.3, White Blood Count 17.5#H, Red Blood Count 3.13L, Hemoglobin 8.9L, Hematocrit 28.7L, Mean Corpuscular Volume 92, Mean Corpuscular Hemoglobin 28.5, Mean Corpuscular Hemoglobin Concent 31.1L, Red Cell Distribution Width 16.9H, Platelet Count 41L , Mean Platelet Volume 12.2H, Neutrophils (%) (Auto) , Lymphocytes (%) (Auto) , Monocytes (%) (Auto) , Eosinophils (%) (Auto) , Basophils (%) (Auto) , Neutrophils % (Manual) [Pending], Lymphocytes % (Manual) [Pending], Platelet Estimate [Pending], Platelet Morphology [Pending], Sodium Level 123L, Potassium Level 5.1H, Chloride Level 90L, Carbon Dioxide Level 19L, Anion Gap 14, Blood Urea Nitrogen 50H, Creatinine 2.0H, Estimat Glomerular Filtration Rate , Glucose Level 131H, Calcium Level 6.9L, Aspartate Amino Transf (AST/SGOT) 51H, Alanine Aminotransferase (ALT/SGPT) 22, Alkaline Phosphatase 223H, Total Protein 4.2L, Albumin 0.7L, Globulin 3.5, Albumin/Globulin Ratio 0.2L Height (Feet): 5 Height (Inches): 8.00 Weight (Pounds): 138 Objective General Appearance: WD/WN, lethargic, thin Neck: supple. + blood in trach tubing Cardiovascular: normal rate Respiratory/Chest: rhonchi - bilaterally, expiratory wheezing Abdomen: normal bowel sounds, non tender, soft, no organomegaly Edema: generalized edema Neurologic: unresponsive MYLES AGUIRRE Jun 15, 2016 08:30
[2016-06-15] MEDS: Zinc Sulfate 220mg cap GT SCH (08:33)
[2016-06-15] MEDS: Multivitamin 5ml Liquid GT SCH (08:33)
[2016-06-15] MEDS: Sodium Chloride 1gm Tab NG SCH ×3 (08:33→17:47)
[2016-06-15] MEDS: Ferrous Sulfate 300 MG/5 ML UDC GT SCH (08:33)
[2016-06-15] MEDS: Ascorbic Acid 500mg tab GT SCH (08:33)
--- NOTE | 2016-06-15 08:43 | Critical Care Progress Note ---
Assessment/Plan Assessment/Plan IMPRESSION: 1. Sepsis with shock. 2. Hypotension. 3. Electrolyte imbalance. 4. Hyponatremia. 5. Hyperkalemia. 6. Acute renal failure. 7. Severe protein-calorie malnutrition. 8. Chronic encephalopathy. 9. Respiratory acidosis. 10. anemia 11. Bacteremia 12. sacral wound infection 13. acute renal failure 14, acute DVT 15. thrombocytopenia 16. bleeding PLAN IV antibiotics and monitor transfuse PRBC and platelets ID follow up noted hematology evaluation; dc anticoagulation proceed with IVC filter when platelets improved pressors as needed nutrition as tolerated SNF meds ventilator as is monitor ABG and adjust follow up care closely ICU care reviewed labs noted remains critical at present message left for DPOA to update family all meds reviewed discussed with all consultants chance of survival grim medications/laboratory data/nursing notes/ICU care reviewed in detail note reviewed and edited care discussed with RN and RT ICU time spent 39 minutes Critical Care - Subjective Interval Events: doing poorly oozing from trach suction with blood low platelets noted ROS Limited/Unobtainable: Yes Condition: critical EKG Rhythm: Sinus Rhythm I&O: Intake and Output 06/14/16 06/15/16 19:00 07:00 Intake Total 2223.71 ml 2899.25 ml Output Total 0 ml 0 ml Balance 2223.71 ml 2899.25 ml Intake Free Water 50 ml 50 ml IV Total 1643.71 ml 2299.25 ml Tube Feeding 530 ml 550 ml Output Urine Total 0 ml 0 ml Critical Care - Objective Last 24 Hour Vital Signs Date Time Temp Pulse Resp B/P Pulse Ox O2 Delivery O2 Flow Rate FiO2 06/15/16 07:00 95 22 35 06/15/16 06:59 90 76/42 06/15/16 06:59 88/41 06/15/16 06:15 93 22 76/37 100 Mechanical Ventilator 40 06/15/16 06:00 76/37 06/15/16 06:00 91 22 75/30 100 Mechanical Ventilator 40 06/15/16 05:45 89 22 78/45 100 Mechanical Ventilator 40 06/15/16 05:30 89 22 85/78 100 Mechanical Ventilator 40 06/15/16 05:15 89 22 35 06/15/16 05:15 89 22 74/19 100 Mechanical Ventilator 40 06/15/16 05:00 80/41 06/15/16 05:00 89 22 89/30 100 Mechanical Ventilator 40 06/15/16 04:45 93 22 80/41 100 Mechanical Ventilator 40 06/15/16 04:30 89 22 97/30 100 Mechanical Ventilator 40 06/15/16 04:15 90 22 86/33 100 Mechanical Ventilator 40 06/15/16 04:00 88 06/15/16 04:00 40 06/15/16 04:00 98.2 88 22 85/24 100 Mechanical Ventilator 40 06/15/16 04:00 86/33 06/15/16 03:45 91 22 84/16 100 Mechanical Ventilator 40 06/15/16 03:39 72/22 06/15/16 03:30 86 22 75/30 100 Mechanical Ventilator 40 06/15/16 03:15 91 22 70/13 100 Mechanical Ventilator 40 06/15/16 03:00 91 22 75/30 100 Mechanical Ventilator 40 06/15/16 03:00 96 22 35 06/15/16 03:00 83/26 06/15/16 02:45 91 22 70/13 100 Mechanical Ventilator 40 06/15/16 02:30 91 22 83/26 100 Mechanical Ventilator 40 06/15/16 02:15 91 22 91/13 100 Mechanical Ventilator 40 06/15/16 02:00 93/22 06/15/16 02:00 92 22 88/22 100 Mechanical Ventilator 40 06/15/16 01:45 92 22 93/22 100 Mechanical Ventilator 40 06/15/16 01:30 92 22 86/38 100 Mechanical Ventilator 40 06/15/16 01:15 92 22 87/26 100 Mechanical Ventilator 40 06/15/16 01:00 89/22 06/15/16 01:00 102 22 35 06/15/16 01:00 92 22 89/22 100 Mechanical Ventilator 40 06/15/16 00:45 92 22 96/22 100 Mechanical Ventilator 40 06/15/16 00:30 93 22 91/10 100 Mechanical Ventilator 40 06/15/16 00:15 92 22 95/30 100 Mechanical Ventilator 40 06/15/16 00:00 92 06/15/16 00:00 96/26 06/15/16 00:00 98.2 92 22 103/35 100 Mechanical Ventilator 40 06/15/16 00:00 40 06/14/16 23:45 94 22 97/46 100 Mechanical Ventilator 40 06/14/16 23:30 91 22 92/19 100 Mechanical Ventilator 40 06/14/16 23:20 101 22 35 06/14/16 23:15 95 22 93/16 100 Mechanical Ventilator 40 06/14/16 23:00 89 22 87/30 100 Mechanical Ventilator 40 06/14/16 22:45 87 22 69/30 100 Mechanical Ventilator 40 06/14/16 22:40 71/27 06/14/16 22:30 90 22 71/27 100 Mechanical Ventilator 40 06/14/16 22:15 89 21 75/38 99 Mechanical Ventilator 40 06/14/16 22:00 100 22 75/29 100 Mechanical Ventilator 40 06/14/16 21:45 89 22 75/47 99 Mechanical Ventilator 40 06/14/16 21:30 101 22 55/26 99 Mechanical Ventilator 40 06/14/16 21:22 96 22 100 Mechanical Ventilator 35 06/14/16 21:15 102 22 75/37 99 Mechanical Ventilator 40 06/14/16 21:12 88 22 35 06/14/16 21:12 35 06/14/16 21:11 87 22 100 Mechanical Ventilator 35 06/14/16 21:00 88 22 90/33 99 Mechanical Ventilator 40 06/14/16 20:45 88 22 90/33 99 Mechanical Ventilator 40 06/14/16 20:30 88 22 94/33 99 Mechanical Ventilator 40 06/14/16 20:15 88 22 94/15 99 Mechanical Ventilator 40 06/14/16 20:00 98.0 87 22 86/24 99 Mechanical Ventilator 40 06/14/16 20:00 40 06/14/16 20:00 92 06/14/16 19:45 88 22 93/22 99 Mechanical Ventilator 40 06/14/16 19:30 88 22 90/33 99 Mechanical Ventilator 40 06/14/16 19:30 100 22 35 06/14/16 19:15 88 22 95/31 99 Mechanical Ventilator 40 06/14/16 19:00 90 22 96/31 99 Mechanical Ventilator 40 06/14/16 18:45 90 22 93/16 99 Mechanical Ventilator 40 06/14/16 18:30 90 22 94/30 99 Mechanical Ventilator 40 06/14/16 18:15 90 20 101/27 99 Mechanical Ventilator 40 06/14/16 18:00 103/25 06/14/16 18:00 88 20 103/25 100 Mechanical Ventilator 40 06/14/16 17:45 91 20 97/24 100 Mechanical Ventilator 40 06/14/16 17:30 91 20 98/28 100 Mechanical Ventilator 40 06/14/16 17:15 90 22 84/31 100 Mechanical Ventilator 40 06/14/16 17:11 98/14 06/14/16 17:00 89 22 98/14 100 Mechanical Ventilator 40 06/14/16 16:45 92 20 100/36 100 Mechanical Ventilator 40 06/14/16 16:44 98 22 35 06/14/16 16:30 91 20 100/36 100 Mechanical Ventilator 40 06/14/16 16:15 90 21 106/32 100 Mechanical Ventilator 40 06/14/16 16:00 92 06/14/16 16:00 97.3 90 21 106/32 100 Mechanical Ventilator 40 06/14/16 16:00 40 06/14/16 15:45 91 21 98/18 100 Mechanical Ventilator 40 06/14/16 15:30 91 21 98/19 100 Mechanical Ventilator 40 06/14/16 15:15 90 21 101/40 100 Mechanical Ventilator 40 06/14/16 15:03 110 22 35 06/14/16 15:00 90 21 98/18 100 Mechanical Ventilator 40 06/14/16 14:30 91 21 101/40 100 Mechanical Ventilator 40 06/14/16 14:00 90 21 92/18 100 Mechanical Ventilator 40 06/14/16 13:30 91 21 94/19 100 Mechanical Ventilator 40 06/14/16 13:00 90 21 96/34 100 Mechanical Ventilator 40 06/14/16 12:40 89 22 35 06/14/16 12:30 90 21 98/11 100 Mechanical Ventilator 40 06/14/16 12:30 97.0 90 21 93/31 100 Mechanical Ventilator 40 06/14/16 12:00 89 06/14/16 12:00 90 21 102/29 100 Mechanical Ventilator 40 06/14/16 12:00 90 21 93/31 100 Mechanical Ventilator 40 06/14/16 12:00 40 06/14/16 11:30 90 21 99/19 100 Mechanical Ventilator 40 06/14/16 11:30 91 22 35 06/14/16 11:00 90 21 102/26 100 Mechanical Ventilator 40 06/14/16 10:30 89 21 90/25 100 Mechanical Ventilator 40 06/14/16 10:20 84/35 06/14/16 10:00 86 21 92/35 100 Mechanical Ventilator 40 06/14/16 09:40 103 22 100 Mechanical Ventilator 35 06/14/16 09:30 95 22 100 Mechanical Ventilator 30 06/14/16 09:30 95 22 35 06/14/16 09:30 102 21 105/44 100 Mechanical Ventilator 40 06/14/16 09:30 30 06/14/16 09:15 89 21 103/22 100 Mechanical Ventilator 40 06/14/16 09:00 96 19 105/38 100 Mechanical Ventilator 40 06/14/16 08:45 86 19 97/20 100 Mechanical Ventilator 40 Labs: Laboratory Tests Test 06/14/16 09:00 06/14/16 17:00 06/14/16 20:00 06/15/16 01:45 Activated Partial Thromboplast Time 60 SEC (23-33) H > 150 SEC (23-33) *H > 150 SEC (23-33) *H > 150 SEC (23-33) *H Vancomycin Level Trough 37.7 ug/mL (5.0-12.0) H Heparin-PF4 Antibody Screen Pending Haptoglobin 193 mg/dL (30-200) Fibrinogen 501 mg/dL (200-400) H Fibrin Degradation Products, Quant Pending Iron Level 48 ug/dL (59-158) L Total Iron Binding Capacity 64 ug/dL (250-400) L Percent Iron Saturation 75 % (15-50) H Unsaturated Iron Binding < 16 ug/dL (112-346) L Ferritin 1669 ng/mL (10-230) H Total Bilirubin 0.3 mg/dL (0.0-1.2) 0.3 mg/dL (0.0-1.2) Direct Bilirubin 0.2 mg/dL (0.1-0.3) Lactate Dehydrogenase 236 U/L (135-230) H Vitamin B12 Level 1696 pg/mL (211-946) H Folate Pending White Blood Count 17.5 K/UL (4.8-10.8) #H Red Blood Count 3.13 M/UL (4.70-6.10) L Hemoglobin 8.9 G/DL (14.2-18.0) L Hematocrit 28.7 % (42.0-52.0) L Mean Corpuscular Volume 92 FL (80-99) Mean Corpuscular Hemoglobin 28.5 PG (27.0-31.0) Mean Corpuscular Hemoglobin Concent 31.1 G/DL (32.0-36.0) L Red Cell Distribution Width 16.9 % (11.6-14.8) H Platelet Count 41 K/UL (150-450) L Mean Platelet Volume 12.2 FL (6.5-10.1) H Neutrophils (%) (Auto) % (45.0-75.0) Lymphocytes (%) (Auto) % (20.0-45.0) Monocytes (%) (Auto) % (1.0-10.0) Eosinophils (%) (Auto) % (0.0-3.0) Basophils (%) (Auto) % (0.0-2.0) Differential Total Cells Counted 100 Neutrophils % (Manual) 69 % (45-75) Lymphocytes % (Manual) 7 % (20-45) L Monocytes % (Manual) 12 % (1-10) H Eosinophils % (Manual) 0 % (0-3) Basophils % (Manual) 0 % (0-2) Band Neutrophils 12 % (0-8) H Platelet Estimate Decreased L Platelet Morphology Normal Hypochromasia 2+ Anisocytosis 1+ Sodium Level 123 mEQ/L (135-145) L Potassium Level 5.1 mEQ/L (3.4-4.9) H Chloride Level 90 mEQ/L (98-107) L Carbon Dioxide Level 19 mEQ/L (20-30) L Anion Gap 14 (5-15) Blood Urea Nitrogen 50 mg/dL (7-23) H Creatinine 2.0 mg/dL (0.7-1.2) H Estimat Glomerular Filtration Rate mL/min (>60) Glucose Level 131 mg/dL (74-106) H Calcium Level 6.9 mg/dL (8.6-10.2) L Aspartate Amino Transf (AST/SGOT) 51 U/L (5-40) H Alanine Aminotransferase (ALT/SGPT) 22 U/L (3-41) Alkaline Phosphatase 223 U/L (40-129) H Total Protein 4.2 g/dL (6.6-8.7) L Albumin 0.7 g/dL (3.5-5.2) L Globulin 3.5 g/dL Albumin/Globulin Ratio 0.2 (1.0-2.7) L Objective: GENERAL: Very contracted individual, poorly responsive. reduced LOC HEENT: Fairly negative. temporal wasting noted. Oropharynx is dry. NECK: Supple. Carotids 2+. trach LUNGS: Coarse breath sounds. Moderate air entry. no wheeze without change CARDIAC: Normal S1 and S2. Overall, with regular rate and rhythm. Systolic murmur at the left parasternal border. No rubs or gallops. ABDOMEN: Soft, nontender, and nondistended. G-tube in place. No hepatosplenomegaly. EXTREMITIES: No cyanosis or clubbing noted contractures. NEUROLOGIC: Poorly responsive. reviewed and edited and not improved obtunded overall Accucheck: 129 JACKIE DANIEL Jun 15, 2016 08:43
[2016-06-15] MEDS: Pantoprazole Inj IVP SCH (08:44)
--- NOTE | 2016-06-15 08:48 | Consultation ---
DATE OF CONSULTATION: 06/14/2016 CONSULTING PHYSICIAN: Tam Dejesus M.D. REQUESTING PHYSICIAN: Jr Perez M.D. REASON FOR CONSULTATION: Evaluation of thrombocytopenia and history of DVT. IDENTIFICATION DATA: Dear Dr. Jr Perez, The patient is a pleasant 75-year-old male with a past medical history significant for respiratory failure, ventilatory dependent, pressure ulcerations, heart failure, end-stage renal disease, and history of anemia, who was brought into the emergency room from [facility] with altered mental status, hypertension, and hypoglycemia. Chest x-ray showed pneumonia. He was placed on antibiotics. He was admitted to the ICU and placed on Levophed drip, currently unresponsive. Currently, he is on for the past several days. He has thrombocytopenia as well, currently platelet count 67,000. Hemoglobin is above 10. Peripheral smear has been reviewed. BUN is 15 and creatinine is 1.9. The patient's BNP is 40,000. HIT antibody is pending. PAST MEDICAL HISTORY: COPD, ventilator-dependent respiratory failure, , chronic anemia, ischemic cardiomyopathy, history of CHF, dysphagia, and G-tube. PAST SURGICAL HISTORY: None noted. ALLERGIES: No known drug allergies. FAMILY HISTORY: Noncontributory. SOCIAL HISTORY: No alcohol, tobacco, or illicit drug use. REVIEW OF SYSTEMS: Difficult to obtain given his mental status. PHYSICAL EXAMINATION: GENERAL: The patient is in no acute distress. VITAL SIGNS: Temperature 97.8 degrees Fahrenheit, pulse 110, respiratory rate 12, blood pressure 98/80, and pulse oximetry is 100% on room air. PULMONARY: Decreased breath sounds. CARDIOVASCULAR: Regular rate. No S3 or S4. ABDOMEN: Soft, nontender, and nondistended. EXTREMITIES: There is 1+ edema. LABORATORY DATA: WBC is 9.9, hemoglobin 10, hematocrit 32, and platelet count 67,000. BUN of 50 and creatinine 1.9. BNP 40,000. INR, reviewed. Prothrombin time approximately 60. IMAGING: PICC line inserted on 06/12/2016. On 06/11/16, shows acute thrombus in the proximal superficial femoral vein and acute thrombus in the common femoral artery, distal femoral vein on the left side. IMPRESSION: 1. Thrombocytopenia multifactorial, is likely secondary to sepsis. The patient has received heparin in the past. There is a risk that the patient develops an HIT syndrome, especially given that a new clot has been detected on the lower extremities bilaterally. Therefore, we will begin the patient on argatroban. 2. HIT antibody test while the patient is on argatroban. 3. Anemia. 4. Decreased hemoglobin and hematocrit, rule out gastrointestinal bleed. 5. Coagulopathy secondary to heparin drip, which has been discontinued. Currently, he is on argatroban. 6. Deep venous thrombosis of bilateral lower extremities, new onset. 7. Hyponatremia. 8. Ventilator-dependent respiratory failure. 9. Pneumonia. 10. . 11. Poor prognosis. RECOMMENDATIONS: 1. Obtain DIC panel. 2. Begin the patient on argatroban. 3. At this time, discontinue heparin products. 4. HIT antibody test has been sent. 5. SSRI is not needed at this time until HIT antibody test is positive. 6. Medium probability of the patient having HIT. 7. Medications have been reviewed. 8. Continue antibiotics as per ID service. 9. Continue ferrous sulfate. 10. Anemia workup has been ordered. 11. Obtain peripheral smear. 12. Imaging has been reviewed. Thank you Dr. Jr Perez for this kind referral. Please do not hesitate to contact me with any further questions. Tam Dejesus M.D. DR: AYAD JOB#: [id number] CC:
[2016-06-15] MEDS ORDERED: Vancomycin 750 MG in NS 275 ML IVPB SCH (09:00)
[2016-06-15] MEDS ORDERED: D5NS 1000ml IV ONE ×3 (10:23→21:39)
--- NOTE | 2016-06-15 11:56 | Infectious Diseases Prog Note ---
Assessment/Plan Assessment/Plan antibiotics : vancomycin iv, inhaled colistin A 1. MRSA sepsis 2. acenitobacter pneumonia 3. respiratory failure 4. septic shock 5. DVT of legs 6. increased leucocytosis P 1. continue vancomycin iv, inhaled colistin 2. start flagyl 3. stool for c.diff 4. 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, 06/14/16) Objective Vital Signs Last 24 Hour Vital Signs Date Time Temp Pulse Resp B/P Pulse Ox O2 Delivery O2 Flow Rate FiO2 06/15/16 11:15 93 21 78/32 100 Mechanical Ventilator 40 06/15/16 11:00 95 21 80/40 100 Mechanical Ventilator 40 06/15/16 10:50 92 22 35 06/15/16 10:45 95 21 80/45 100 Mechanical Ventilator 40 06/15/16 10:30 90 21 87/46 100 Mechanical Ventilator 40 06/15/16 10:15 83 21 96/52 100 Mechanical Ventilator 40 06/15/16 10:00 96 21 100/47 100 Mechanical Ventilator 40 06/15/16 09:45 97 21 96/53 100 Mechanical Ventilator 40 06/15/16 09:30 96 21 96/53 100 Mechanical Ventilator 40 06/15/16 09:25 90 22 35 06/15/16 09:15 95 21 95/37 100 Mechanical Ventilator 40 06/15/16 09:00 96 21 91/52 97 Mechanical Ventilator 40 06/15/16 08:46 90/42 06/15/16 08:45 98 21 90/50 97 Mechanical Ventilator 40 06/15/16 08:30 98 21 104/45 100 Mechanical Ventilator 40 06/15/16 08:15 98 22 98/55 97 Mechanical Ventilator 40 06/15/16 08:00 106 22 82/39 97 Mechanical Ventilator 40 06/15/16 08:00 95 06/15/16 08:00 40 06/15/16 07:45 92 22 98/55 97 Mechanical Ventilator 40 06/15/16 07:30 92 18 97/42 100 Mechanical Ventilator 40 06/15/16 07:15 92 22 92/47 100 Mechanical Ventilator 40 06/15/16 07:05 91 22 100 Mechanical Ventilator 35 06/15/16 07:00 89 22 97 Mechanical Ventilator 35 06/15/16 07:00 98.4 91 19 85/49 97 Mechanical Ventilator 40 06/15/16 07:00 95 22 35 06/15/16 07:00 35 06/15/16 06:59 90 76/42 06/15/16 06:59 88/41 06/15/16 06:15 93 22 76/37 100 Mechanical Ventilator 40 06/15/16 06:00 76/37 06/15/16 06:00 91 22 75/30 100 Mechanical Ventilator 40 06/15/16 05:45 89 22 78/45 100 Mechanical Ventilator 40 06/15/16 05:30 89 22 85/78 100 Mechanical Ventilator 40 06/15/16 05:15 89 22 35 06/15/16 05:15 89 22 74/19 100 Mechanical Ventilator 40 06/15/16 05:00 80/41 06/15/16 05:00 89 22 89/30 100 Mechanical Ventilator 40 06/15/16 04:45 93 22 80/41 100 Mechanical Ventilator 40 06/15/16 04:30 89 22 97/30 100 Mechanical Ventilator 40 06/15/16 04:15 90 22 86/33 100 Mechanical Ventilator 40 06/15/16 04:00 88 06/15/16 04:00 40 06/15/16 04:00 98.2 88 22 85/24 100 Mechanical Ventilator 40 06/15/16 04:00 86/33 06/15/16 03:45 91 22 84/16 100 Mechanical Ventilator 40 06/15/16 03:39 72/22 06/15/16 03:30 86 22 75/30 100 Mechanical Ventilator 40 06/15/16 03:15 91 22 70/13 100 Mechanical Ventilator 40 06/15/16 03:00 91 22 75/30 100 Mechanical Ventilator 40 06/15/16 03:00 96 22 35 06/15/16 03:00 83/26 06/15/16 02:45 91 22 70/13 100 Mechanical Ventilator 40 06/15/16 02:30 91 22 83/26 100 Mechanical Ventilator 40 06/15/16 02:15 91 22 91/13 100 Mechanical Ventilator 40 06/15/16 02:00 93/22 06/15/16 02:00 92 22 88/22 100 Mechanical Ventilator 40 06/15/16 01:45 92 22 93/22 100 Mechanical Ventilator 40 06/15/16 01:30 92 22 86/38 100 Mechanical Ventilator 40 06/15/16 01:15 92 22 87/26 100 Mechanical Ventilator 40 06/15/16 01:00 89/22 06/15/16 01:00 102 22 35 06/15/16 01:00 92 22 89/22 100 Mechanical Ventilator 40 06/15/16 00:45 92 22 96/22 100 Mechanical Ventilator 40 06/15/16 00:30 93 22 91/10 100 Mechanical Ventilator 40 06/15/16 00:15 92 22 95/30 100 Mechanical Ventilator 40 06/15/16 00:00 92 06/15/16 00:00 96/26 06/15/16 00:00 98.2 92 22 103/35 100 Mechanical Ventilator 40 06/15/16 00:00 40 06/14/16 23:45 94 22 97/46 100 Mechanical Ventilator 40 06/14/16 23:30 91 22 92/19 100 Mechanical Ventilator 40 06/14/16 23:20 101 22 35 06/14/16 23:15 95 22 93/16 100 Mechanical Ventilator 40 06/14/16 23:00 89 22 87/30 100 Mechanical Ventilator 40 06/14/16 22:45 87 22 69/30 100 Mechanical Ventilator 40 06/14/16 22:40 71/27 06/14/16 22:30 90 22 71/27 100 Mechanical Ventilator 40 06/14/16 22:15 89 21 75/38 99 Mechanical Ventilator 40 06/14/16 22:00 100 22 75/29 100 Mechanical Ventilator 40 06/14/16 21:45 89 22 75/47 99 Mechanical Ventilator 40 06/14/16 21:30 101 22 55/26 99 Mechanical Ventilator 40 06/14/16 21:22 96 22 100 Mechanical Ventilator 35 06/14/16 21:15 102 22 75/37 99 Mechanical Ventilator 40 06/14/16 21:12 88 22 35 06/14/16 21:12 35 06/14/16 21:11 87 22 100 Mechanical Ventilator 35 06/14/16 21:00 88 22 90/33 99 Mechanical Ventilator 40 06/14/16 20:45 88 22 90/33 99 Mechanical Ventilator 40 06/14/16 20:30 88 22 94/33 99 Mechanical Ventilator 40 06/14/16 20:15 88 22 94/15 99 Mechanical Ventilator 40 06/14/16 20:00 98.0 87 22 86/24 99 Mechanical Ventilator 40 06/14/16 20:00 40 06/14/16 20:00 92 06/14/16 19:45 88 22 93/22 99 Mechanical Ventilator 40 06/14/16 19:30 88 22 90/33 99 Mechanical Ventilator 40 06/14/16 19:30 100 22 35 06/14/16 19:15 88 22 95/31 99 Mechanical Ventilator 40 06/14/16 19:00 90 22 96/31 99 Mechanical Ventilator 40 06/14/16 18:45 90 22 93/16 99 Mechanical Ventilator 40 06/14/16 18:30 90 22 94/30 99 Mechanical Ventilator 40 06/14/16 18:15 90 20 101/27 99 Mechanical Ventilator 40 06/14/16 18:00 103/25 06/14/16 18:00 88 20 103/25 100 Mechanical Ventilator 40 06/14/16 17:45 91 20 97/24 100 Mechanical Ventilator 40 06/14/16 17:30 91 20 98/28 100 Mechanical Ventilator 40 06/14/16 17:15 90 22 84/31 100 Mechanical Ventilator 40 06/14/16 17:11 98/14 06/14/16 17:00 89 22 98/14 100 Mechanical Ventilator 40 06/14/16 16:45 92 20 100/36 100 Mechanical Ventilator 40 06/14/16 16:44 98 22 35 06/14/16 16:30 91 20 100/36 100 Mechanical Ventilator 40 06/14/16 16:15 90 21 106/32 100 Mechanical Ventilator 40 06/14/16 16:00 92 06/14/16 16:00 97.3 90 21 106/32 100 Mechanical Ventilator 40 06/14/16 16:00 40 06/14/16 15:45 91 21 98/18 100 Mechanical Ventilator 40 06/14/16 15:30 91 21 98/19 100 Mechanical Ventilator 40 06/14/16 15:15 90 21 101/40 100 Mechanical Ventilator 40 06/14/16 15:03 110 22 35 06/14/16 15:00 90 21 98/18 100 Mechanical Ventilator 40 06/14/16 14:30 91 21 101/40 100 Mechanical Ventilator 40 06/14/16 14:00 90 21 92/18 100 Mechanical Ventilator 40 06/14/16 13:30 91 21 94/19 100 Mechanical Ventilator 40 06/14/16 13:00 90 21 96/34 100 Mechanical Ventilator 40 06/14/16 12:40 89 22 35 06/14/16 12:30 90 21 98/11 100 Mechanical Ventilator 40 06/14/16 12:30 97.0 90 21 93/31 100 Mechanical Ventilator 40 06/14/16 12:00 89 06/14/16 12:00 90 21 102/29 100 Mechanical Ventilator 40 06/14/16 12:00 90 21 93/31 100 Mechanical Ventilator 40 06/14/16 12:00 40 Height (Feet): 5 Height (Inches): 8.00 Weight (Pounds): 138 HEENT: status post trach Respiratory/Chest: lungs clear Cardiovascular: normal rate, regular rhythm, no gallop/murmur Abdomen: soft, non tender, other - GT Extremities: other - scrotal edema, right arm PICC Laboratory Tests Test 06/14/16 17:00 06/14/16 20:00 06/15/16 01:45 Haptoglobin 193 mg/dL (30-200) Activated Partial Thromboplast Time > 150 SEC (23-33) *H > 150 SEC (23-33) *H > 150 SEC (23-33) *H Fibrinogen 501 mg/dL (200-400) H Fibrin Degradation Products, Quant Pending Iron Level 48 ug/dL (59-158) L Total Iron Binding Capacity 64 ug/dL (250-400) L Percent Iron Saturation 75 % (15-50) H Unsaturated Iron Binding < 16 ug/dL (112-346) L Ferritin 1669 ng/mL (10-230) H Total Bilirubin 0.3 mg/dL (0.0-1.2) 0.3 mg/dL (0.0-1.2) Direct Bilirubin 0.2 mg/dL (0.1-0.3) Lactate Dehydrogenase 236 U/L (135-230) H Vitamin B12 Level 1696 pg/mL (211-946) H Folate Pending White Blood Count 17.5 K/UL (4.8-10.8) #H Red Blood Count 3.13 M/UL (4.70-6.10) L Hemoglobin 8.9 G/DL (14.2-18.0) L Hematocrit 28.7 % (42.0-52.0) L Mean Corpuscular Volume 92 FL (80-99) Mean Corpuscular Hemoglobin 28.5 PG (27.0-31.0) Mean Corpuscular Hemoglobin Concent 31.1 G/DL (32.0-36.0) L Red Cell Distribution Width 16.9 % (11.6-14.8) H Platelet Count 41 K/UL (150-450) L Mean Platelet Volume 12.2 FL (6.5-10.1) H Neutrophils (%) (Auto) % (45.0-75.0) Lymphocytes (%) (Auto) % (20.0-45.0) Monocytes (%) (Auto) % (1.0-10.0) Eosinophils (%) (Auto) % (0.0-3.0) Basophils (%) (Auto) % (0.0-2.0) Differential Total Cells Counted 100 Neutrophils % (Manual) 69 % (45-75) Lymphocytes % (Manual) 7 % (20-45) L Monocytes % (Manual) 12 % (1-10) H Eosinophils % (Manual) 0 % (0-3) Basophils % (Manual) 0 % (0-2) Band Neutrophils 12 % (0-8) H Platelet Estimate Decreased L Platelet Morphology Normal Hypochromasia 2+ Anisocytosis 1+ Sodium Level 123 mEQ/L (135-145) L Potassium Level 5.1 mEQ/L (3.4-4.9) H Chloride Level 90 mEQ/L (98-107) L Carbon Dioxide Level 19 mEQ/L (20-30) L Anion Gap 14 (5-15) Blood Urea Nitrogen 50 mg/dL (7-23) H Creatinine 2.0 mg/dL (0.7-1.2) H Estimat Glomerular Filtration Rate mL/min (>60) Glucose Level 131 mg/dL (74-106) H Calcium Level 6.9 mg/dL (8.6-10.2) L Aspartate Amino Transf (AST/SGOT) 51 U/L (5-40) H Alanine Aminotransferase (ALT/SGPT) 22 U/L (3-41) Alkaline Phosphatase 223 U/L (40-129) H Total Protein 4.2 g/dL (6.6-8.7) L Albumin 0.7 g/dL (3.5-5.2) L Globulin 3.5 g/dL Albumin/Globulin Ratio 0.2 (1.0-2.7) L GURMEET LEIVA Jun 15, 2016 11:56
[2016-06-15] MEDS: D5NS 1,000 ML IV SCH (12:56)
[2016-06-15] MEDS ORDERED: metroNIDAZOLE 500mg tab ORAL SCH (14:00)
--- NOTE | 2016-06-15 16:08 | General Progress Note ---
Progress Note Progress Note Bioethics Note Discussed with Sarah Nunez. Mr. Shafer has multisystem organ failure and is on maximum doses of medications for septic shock. Given his marginal baseline status cardioulmonary resuscitation would not be in his best interests. He has no official durable power of trust and estates attorney for healthcare matters. A no code order would be appropriate. Sarah will communicate this to the attending physician.The case will be presented to the full Committee at its next meeting. Nilesh Toro M.D., Chair, Bioethics Committee NILESH TORO Jun 15, 2016 16:08
--- NOTE | 2016-06-15 20:28 | General Progress Note ---
Assessment/Plan Assessment/Plan IMPRESSION: 1. Thrombocytopenia multifactorial, is likely secondary to sepsis. The patient has received heparin in the past. There is a risk that the patient develops an HIT syndrome, especially given that a new clot has been detected on the lower extremities bilaterally. Argatroban given until HIT results 2. Deep venous thrombosis of bilateral lower extremities, new onset. Argatroban on board 3. Anemia 2.2 chronic disease 4. Decreased hemoglobin and hematocrit, rule out gastrointestinal bleed. 5. Coagulopathy secondary to sepsis 6. Hyponatremia. 7. Ventilator-dependent respiratory failure. 8. Pneumonia. 9. Poor prognosis. RECOMMENDATIONS: 1. Monitor counts 2. No further heparin products. 3. Duplex of the lower ext reviewed 4. HIT antibody test has been sent. 5. SSRI is not needed at this time until HIT antibody test is positive. 6. Medium probability of the patient having HIT. 7. Medications have been reviewed. 8. Continue antibiotics as per ID service. 9. Continue ferrous sulfate. 10. Argatroban to continue 11. Obtain peripheral smear. 12. PROGNOSIS remains poor, RN contacting family Thank you, Tam Dejesus MD Subjective Time patient seen: 09:00 Constitutional: Reports: no symptoms HEENT: Reports: no symptoms Cardiovascular: Reports: no symptoms Respiratory: Reports: no symptoms Gastrointestinal/Abdominal: Reports: poor appetite Genitourinary: Reports: no symptoms Neurologic/Psychiatric: Reports: no symptoms Endocrine: Reports: no symptoms Hematologic/Lymphatic: Reports: anemia Allergies: Coded Allergies: HEPARIN (Unverified Allergy, Severe, SUSPECTED HIT, 06/14/16) Subjective on maximum pressors, on argatroban, family being contacted by RN Objective Last 24 Hour Vital Signs Date Time Temp Pulse Resp B/P Pulse Ox O2 Delivery O2 Flow Rate FiO2 06/15/16 19:15 57 20 43/14 96 Mechanical Ventilator 40 06/15/16 19:02 36/14 06/15/16 19:00 65 22 36/14 94 Mechanical Ventilator 40 06/15/16 18:47 68 22 35 06/15/16 18:45 84 22 41/16 94 Mechanical Ventilator 40 06/15/16 18:30 79 20 57/23 95 Mechanical Ventilator 40 06/15/16 18:15 87 20 56/25 96 Mechanical Ventilator 40 06/15/16 18:00 88 18 54/25 96 Mechanical Ventilator 40 06/15/16 17:48 89 55/26 06/15/16 17:45 89 18 55/26 95 Mechanical Ventilator 40 06/15/16 17:30 90 18 53/26 92 Mechanical Ventilator 40 06/15/16 17:15 90 19 57/24 96 Mechanical Ventilator 40 06/15/16 17:00 91 19 59/23 95 Mechanical Ventilator 40 06/15/16 16:57 95 22 35 06/15/16 16:45 92 21 61/ 96 Mechanical Ventilator 40 06/15/16 16:30 94 19 58/23 96 Mechanical Ventilator 40 06/15/16 16:15 92 19 58/23 96 Mechanical Ventilator 40 06/15/16 16:00 92 06/15/16 16:00 95 20 51/28 96 Mechanical Ventilator 40 06/15/16 16:00 40 06/15/16 15:45 93 20 59/25 95 Mechanical Ventilator 40 06/15/16 15:30 92 21 57/ 95 Mechanical Ventilator 40 06/15/16 15:25 92 22 35 06/15/16 15:15 91 21 5624 96 Mechanical Ventilator 40 06/15/16 15:00 98.4 95 19 59/ 96 Mechanical Ventilator 40 06/15/16 14:45 95 19 59/29 96 Mechanical Ventilator 40 06/15/16 14:30 94 19 59/ 95 Mechanical Ventilator 40 06/15/16 14:15 90 21 57/28 95 Mechanical Ventilator 40 06/15/16 14:00 95 19 55/26 94 Mechanical Ventilator 40 06/15/16 13:45 92 19 66/24 95 Mechanical Ventilator 40 06/15/16 13:39 60/21 06/15/16 13:30 92 20 60/21 95 Mechanical Ventilator 40 06/15/16 13:25 91 22 35 06/15/16 13:15 95 20 52/21 95 Mechanical Ventilator 40 06/15/16 13:12 94 61/23 06/15/16 13:00 93 19 61/ 97 Mechanical Ventilator 40 06/15/16 12:45 94 19 62/24 95 Mechanical Ventilator 40 06/15/16 12:30 95 19 61/28 95 Mechanical Ventilator 40 06/15/16 12:15 95 19 66/28 94 Mechanical Ventilator 40 06/15/16 12:00 40 06/15/16 12:00 98.4 95 19 74/29 94 Mechanical Ventilator 40 06/15/16 12:00 94 06/15/16 11:45 94 19 73/36 94 Mechanical Ventilator 40 06/15/16 11:30 94 21 76/36 100 Mechanical Ventilator 40 06/15/16 11:15 93 21 78/32 100 Mechanical Ventilator 40 06/15/16 11:00 95 21 80/40 100 Mechanical Ventilator 40 06/15/16 10:50 92 22 35 06/15/16 10:45 95 21 80/45 100 Mechanical Ventilator 40 06/15/16 10:30 90 21 87/46 100 Mechanical Ventilator 40 06/15/16 10:15 83 21 96/52 100 Mechanical Ventilator 40 06/15/16 10:00 96 21 100/47 100 Mechanical Ventilator 40 06/15/16 09:45 97 21 96/53 100 Mechanical Ventilator 40 06/15/16 09:30 96 21 96/53 100 Mechanical Ventilator 40 06/15/16 09:25 90 22 35 06/15/16 09:15 95 21 95/37 100 Mechanical Ventilator 40 06/15/16 09:00 96 21 91/52 97 Mechanical Ventilator 40 06/15/16 08:46 90/42 06/15/16 08:45 98 21 90/50 97 Mechanical Ventilator 40 06/15/16 08:30 98 21 104/45 100 Mechanical Ventilator 40 06/15/16 08:15 98 22 98/55 97 Mechanical Ventilator 40 06/15/16 08:00 106 22 82/39 97 Mechanical Ventilator 40 06/15/16 08:00 95 06/15/16 08:00 40 06/15/16 07:45 92 22 98/55 97 Mechanical Ventilator 40 06/15/16 07:30 92 18 97/42 100 Mechanical Ventilator 40 06/15/16 07:15 92 22 92/47 100 Mechanical Ventilator 40 06/15/16 07:05 91 22 100 Mechanical Ventilator 35 06/15/16 07:00 89 22 97 Mechanical Ventilator 35 06/15/16 07:00 98.4 91 19 85/49 97 Mechanical Ventilator 40 06/15/16 07:00 95 22 35 06/15/16 07:00 35 06/15/16 06:59 90 76/42 06/15/16 06:59 88/41 06/15/16 06:15 93 22 76/37 100 Mechanical Ventilator 40 06/15/16 06:00 76/37 06/15/16 06:00 91 22 75/30 100 Mechanical Ventilator 40 06/15/16 05:45 89 22 78/45 100 Mechanical Ventilator 40 06/15/16 05:30 89 22 85/78 100 Mechanical Ventilator 40 06/15/16 05:15 89 22 35 06/15/16 05:15 89 22 74/19 100 Mechanical Ventilator 40 06/15/16 05:00 80/41 06/15/16 05:00 89 22 89/30 100 Mechanical Ventilator 40 06/15/16 04:45 93 22 80/41 100 Mechanical Ventilator 40 06/15/16 04:30 89 22 97/30 100 Mechanical Ventilator 40 06/15/16 04:15 90 22 86/33 100 Mechanical Ventilator 40 06/15/16 04:00 88 06/15/16 04:00 40 06/15/16 04:00 98.2 88 22 85/24 100 Mechanical Ventilator 40 06/15/16 04:00 86/33 06/15/16 03:45 91 22 84/16 100 Mechanical Ventilator 40 06/15/16 03:39 72/22 06/15/16 03:30 86 22 75/30 100 Mechanical Ventilator 40 06/15/16 03:15 91 22 70/13 100 Mechanical Ventilator 40 06/15/16 03:00 91 22 75/30 100 Mechanical Ventilator 40 06/15/16 03:00 96 22 35 06/15/16 03:00 83/26 06/15/16 02:45 91 22 70/13 100 Mechanical Ventilator 40 06/15/16 02:30 91 22 83/26 100 Mechanical Ventilator 40 06/15/16 02:15 91 22 91/13 100 Mechanical Ventilator 40 06/15/16 02:00 93/22 06/15/16 02:00 92 22 88/22 100 Mechanical Ventilator 40 06/15/16 01:45 92 22 93/22 100 Mechanical Ventilator 40 06/15/16 01:30 92 22 86/38 100 Mechanical Ventilator 40 06/15/16 01:15 92 22 87/26 100 Mechanical Ventilator 40 06/15/16 01:00 89/22 06/15/16 01:00 102 22 35 06/15/16 01:00 92 22 89/22 100 Mechanical Ventilator 40 06/15/16 00:45 92 22 96/22 100 Mechanical Ventilator 40 06/15/16 00:30 93 22 91/10 100 Mechanical Ventilator 40 06/15/16 00:15 92 22 95/30 100 Mechanical Ventilator 40 06/15/16 00:00 92 06/15/16 00:00 96/26 06/15/16 00:00 98.2 92 22 103/35 100 Mechanical Ventilator 40 06/15/16 00:00 40 06/14/16 23:45 94 22 97/46 100 Mechanical Ventilator 40 06/14/16 23:30 91 22 92/19 100 Mechanical Ventilator 40 06/14/16 23:20 101 22 35 06/14/16 23:15 95 22 93/16 100 Mechanical Ventilator 40 06/14/16 23:00 89 22 87/30 100 Mechanical Ventilator 40 06/14/16 22:45 87 22 69/30 100 Mechanical Ventilator 40 06/14/16 22:40 71/27 06/14/16 22:30 90 22 71/27 100 Mechanical Ventilator 40 06/14/16 22:15 89 21 75/38 99 Mechanical Ventilator 40 06/14/16 22:00 100 22 75/29 100 Mechanical Ventilator 40 06/14/16 21:45 89 22 75/47 99 Mechanical Ventilator 40 06/14/16 21:30 101 22 55/26 99 Mechanical Ventilator 40 06/14/16 21:22 96 22 100 Mechanical Ventilator 35 06/14/16 21:15 102 22 75/37 99 Mechanical Ventilator 40 06/14/16 21:12 88 22 35 06/14/16 21:12 35 06/14/16 21:11 87 22 100 Mechanical Ventilator 35 06/14/16 21:00 88 22 90/33 99 Mechanical Ventilator 40 06/14/16 20:45 88 22 90/33 99 Mechanical Ventilator 40 06/14/16 20:30 88 22 94/33 99 Mechanical Ventilator 40 Intake and Output 06/14/16 06/15/16 19:00 07:00 Intake Total 2223.71 ml 2899.25 ml Output Total 0 ml 0 ml Balance 2223.71 ml 2899.25 ml Intake Free Water 50 ml 50 ml IV Total 1643.71 ml 2299.25 ml Tube Feeding 530 ml 550 ml Output Urine Total 0 ml 0 ml Laboratory Tests 06/15/16 01:45: White Blood Count 17.5#H, Red Blood Count 3.13L, Hemoglobin 8.9L, Hematocrit 28.7L, Mean Corpuscular Volume 92, Mean Corpuscular Hemoglobin 28.5, Mean Corpuscular Hemoglobin Concent 31.1L, Red Cell Distribution Width 16.9H, Platelet Count 41L, Mean Platelet Volume 12.2H, Neutrophils (%) (Auto) , Lymphocytes (%) (Auto) , Monocytes (%) (Auto) , Eosinophils (%) (Auto) , Basophils (%) (Auto) , Differential Total Cells Counted 100, Neutrophils % ( Manual) 69, Lymphocytes % (Manual) 7L, Monocytes % (Manual) 12H, Eosinophils % ( Manual) 0, Basophils % (Manual) 0, Band Neutrophils 12H, Platelet Estimate DecreasedL, Platelet Morphology Normal, Hypochromasia 2+, Anisocytosis 1+, Activated Partial Thromboplast Time > 150*H, Sodium Level 123L, Potassium Level 5.1H, Chloride Level 90L, Carbon Dioxide Level 19L, Anion Gap 14, Blood Urea Nitrogen 50H, Creatinine 2.0H, Estimat Glomerular Filtration Rate , Glucose Level 131H, Calcium Level 6.9L, Total Bilirubin 0.3, Aspartate Amino Transf (AST /SGOT) 51H, Alanine Aminotransferase (ALT/SGPT) 22, Alkaline Phosphatase 223H, Total Protein 4.2L, Albumin 0.7L, Globulin 3.5, Albumin/Globulin Ratio 0.2L Height (Feet): 5 Height (Inches): 8.00 Weight (Pounds): 138 General Appearance: no apparent distress EENT: TMs normal Neck: supple Cardiovascular: regular rhythm Respiratory/Chest: lungs clear Abdomen: non tender Extremities: non-tender Edema: 1+ Leg (L), 1+ Leg (R) Edema: mild edema Neurologic: disoriented Skin: normal pigmentation Tam Dejesus Jun 15, 2016 20:28
[2016-06-15] MEDS ORDERED: Tubing IV Blood Pump IV ONE (21:39)
[2016-06-15] MEDS ORDERED: D5W 275ml ONE (21:39)
[2016-06-15] MEDS ORDERED: NS 275ml ONE (21:39)
[2016-06-15] MEDS ORDERED: Tubing IV Secondary IV ONE (21:39)
--- NOTE | 2016-06-15 21:53 | Emergency Room Report ---
History of Present Illness General Chief Complaint: Altered Level of Consciousness Source: Medical Record Present Illness Allergies: Coded Allergies: HEPARIN (Unverified Allergy, Severe, SUSPECTED HIT, 06/14/16) Nursing Documentation-[facility] Past Medical History: Deferred Hx Cardiac Problems: Yes - edema, HF, anemia, a fib Hx COPD: Yes - pulmonary embolism, resp failure, trach Hx Gastrointestinal Problems: Yes - g-tube Physical Exam Vital Signs Date Time Temp Pulse Resp B/P Pulse Ox O2 Delivery O2 Flow Rate FiO2 06/09/16 11:07 97.5 91 19 79/50 99 Ambu-Bag 06/09/16 11:29 100 Medical Decision Making Diagnostic Impression: Primary Impression: Anemia Qualified Codes: D64.9 - Anemia, unspecified Additional Impressions: Cardiac arrest Sepsis Qualified Codes: A41.9 - Sepsis, unspecified organism Acute and chronic respiratory failure ([id number]) Qualified Codes: J96.20 - Acute and chronic respiratory failure, unspecified whether with hypoxia or hypercapnia Pneumonia Qualified Codes: J18.9 - Pneumonia, unspecified organism ER Course The patient is a 75-year-old male with history of sepsis who is the noted to be pulseless and with asystole. The patient was noted to have no evidence of cardiac activity no spontaneous respirations the patient was pronounced at 1926. Family was notified by staff as with primary care physician. Last Vital Signs Date Time Temp Pulse Resp B/P Pulse Ox O2 Delivery O2 Flow Rate FiO2 06/15/16 19:15 57 20 43/14 96 Mechanical Ventilator 40 06/15/16 15:00 98.4 Disposition: Condition: [facility] Buck Mcgovern Jun 15, 2016 21:53
--- NOTE | 2016-06-15 21:58 | Progress Note ---
DATE: 06/15/2016 SUBJECTIVE: Condition remains critical. Prognosis guarded. The patient is having bruising from the trach site. He remains on full ventilator support. He is on pressor support. OBJECTIVE: VITAL SIGNS: Blood pressure 76/42, pulse 90, respiratory rate 22, and afebrile. GENERAL: Unresponsive with bleeding from trach. LUNGS: Bilateral breath sounds with rhonchi. HEART: Regular rhythm and rate. Normal S1, S2. No new murmur. ABDOMEN: Soft with G-tube. EXTREMITIES: With dependent edema. LABORATORY DATA: White count 17.5, hemoglobin 8.9. Sodium 123, potassium 5.1, bicarbonate 19, BUN 50, and creatinine 2. Albumin 0.7. PTT greater than 150. IMPRESSION: 1. Multiorgan system failure. 2. Sepsis with shock. 3. Critical and grave. 4. Options limited. PLAN: 1. Continue vent, antimicrobials, and pressors. 2. Replace blood products as needed. 3. Pain control. 4. Stress ulcer prophylaxis. Eddie Britt M.D. DR: COMPA JOB#: [id number] CC:
--- NOTE | 2016-06-18 11:19 | Discharge Summary ---
Discharge Summary Hospital Course Date of Admission Jun 09, 2016 at 12:15 Date of Discharge Jun 15, 2016 at 21:40 Admitting Diagnosis Sepsis HPI Julio Cesar Shafer is a 75 year old male who was admitted on Jun 09, 2016 at 12:15 for Sepsis Hospital Course dc summary #[id number] Discharge Condition Upon Discharge: grave Discharge Disposition Patient ( was pronounced at 06/15 at 19:26) Discharge Diagnoses: Omi ([facility] [place]),Daphne SPRAGUE Jun 18, 2016 11:19
--- NOTE | 2016-06-19 02:28 | Discharge Summary 2 SIG ---
DATE OF ADMISSION: 06/09/2016 DATE OF EXPIRATION: 06/15/2016 REASON FOR ADMISSION: 75-year-old male with chronic respiratory failure, tracheostomy status, brought from the group home facility for evaluation. Patient presented with hypotension and change in mental status. Blood pressure was 79/50, anemic with hemoglobin of 7.9 and hematocrit of 25.3. No leukocytosis. Chest x-ray with evidence of pneumonia. The patient was connected to ventilator. ABG revealed severe respiratory acidosis. The patient was transferred to [facility] for further management. However shortly afterwards he developed bradycardia and Code Blue was called. The patient was transferred to the ICU for further management and started on pressors. ADMITTING DIAGNOSES: 1. Acute on chronic respiratory failure. 2. Ventilator-dependent respiratory failure with tracheostomy. 3. Sepsis. 4. Pneumonia. 5. Status post cardiac arrest. 6. Respiratory acidosis. HOSPITAL STAY: The patient was admitted to ICU. Pulmonology, ID consult and cardiology consults were requested. Ventilator support and aggressive pulmonary toilet was provided. The patient was started on antibiotics. ID followed. Blood culture were positive for MRSA. Sputum culture was positive for Acinetobacter multidrug resistant. Wound culture was positive for Acinetobacter multidrug resistant, vancomycin resistant enterococcus and KPC. The patient's condition deteriorated. The patient was on maximum pressors and was unable to be weaned. Echocardiogram revealed ejection fraction of 45% to 50% and right ventricular systolic pressure of 68 consistent with moderate pulmonary hypertension as well as the evidence of moderate tricuspid regurgitation and septal hypokinesis. Venous duplex revealed acute bilateral DVT. The patient was started on anticoagulation. Hematology consult was requested. However, the patient's platelet started to abruptly trend down . In addition, the patient showed evidence of coagulopathy. The patient was oozing from tracheostomy site. The patient initially was on argatroban, which stopped after he showed evidence of coagulopathy and thrombocytopenia. The patient was anemic and required a total of 3 units of packed red blood cells transfusion. During the stay, the patient developed acute renal failure, which was getting progressively worse despite of volume repletion. Creatinine on the day of expiration was up to 2.0. The patient was also noted to have multiple decubiti present on admission. Wound care nurse seen and evaluated the patient. Recommendation were provided regarding decubiti care Electrolyte imbalances (hyponatremia and hyperkalemia) were addressed. However, according to all consultants who were involved in care of this patient, the patient had limited options due to the grave and poor prognosis. Bioethics committee consult was requested. Dr. Toro seen and evaluated the patient and determined that the patient had multisystem organ failure . Patient was on maximum dose of pressors,unable to wean. Given his marginal baseline status, it was determined by bioethics that cardiopulmonary resuscitation i would not be in his best interest. The patient had no official durable power of career orientation teacher for healthcare matters. Bioethics recommended no code status given his condition and limited options as well as the multisystem organ failure. The patient's code status was changed to DNR on 06/15/2016 at 16:08. Subsequently, later that evening, emergency room doctor was called to pronounce the patient. The patient was noted to be in asystole and pulseless. No evidence of cardiac activity. The patient was pronounced on 06/15 at 19:26, cause of cardiopulmonary arrest. FINAL DIAGNOSES: 1. Septic shock. 2. Sepsis with bacteremia/methicillin resistant Staphylococcus aureus. 3. Acute on chronic respiratory failure. 4. Ventilator-dependent respiratory failure tracheostomy status. 5. Pneumonia. 6. Acute respiratory acidosis. 7. Multisystem organ failure. 8. Status post cardiac arrest. 9. Acute deep vein thrombosis bilateral lower extremities. 10. Anemia of chronic disease, status post blood transfusion. 11. Pulmonary hypertension 12. Acute renal failure. 13. Coagulopathy. 14. Thrombocytopenia. 15. Chronic encephalopathy. 16. Electrolyte imbalances (hyponatremia, hyperkalemia). 17. Multiple decubiti ulcer, present on admission, including sacral stage IV, left posterior lower leg stage IV, and left lateral lower leg stage IV. 18. Severe protein-calorie malnutrition. Tim Mcdaniel M.D. I have been assigned to dictate discharge summary on this account and I was not involved in the patient's management. Daphne TylerEdgewood State HospitalRadha NAuroraPAurora DR: KAY JOB#: [id number] CC: [email or web address]
== END 2016-06-15 21:40 | disposition expired | DRG 870 ==
LOC: EDBD 11:17 → EMR 11:52 → 2W 12:15 → EDBEDREQ 22:57 → ICU 06-10 01:15
DX: A41.02 Sepsis due to Methicillin resistant Staphylococcus aureus (principal); J96.20 Acute and chronic respiratory failure, unspecified whether with hypoxia or hypercapnia; E43 Unspecified severe protein-calorie malnutrition; R65.21 Severe sepsis with septic shock; G93.49 Other encephalopathy; L89.154 Pressure ulcer of sacral region, stage 4; J15.8 Pneumonia due to other specified bacteria; N17.9 Acute kidney failure, unspecified; L89.894 Pressure ulcer of other site, stage 4; I42.9 Cardiomyopathy, unspecified; Z99.11 Dependence on respirator [ventilator] status; E87.1 Hypo-osmolality and hyponatremia; I82.413 Acute embolism and thrombosis of femoral vein, bilateral; D64.9 Anemia, unspecified; Z93.0 Tracheostomy status; Z68.20 Body mass index [BMI] 20.0-20.9, adult; J44.9 Chronic obstructive pulmonary disease, unspecified; Z93.1 Gastrostomy status; I48.0 Paroxysmal atrial fibrillation; E87.5 Hyperkalemia; Z66 Do not resuscitate; R13.10 Dysphagia, unspecified; D69.6 Thrombocytopenia, unspecified
CPT/HCPCS: 36415; 36569; 36600; 71010; 76937; 80053; 80202; 81003; 82247; 82248; 82270; 82533; 82550; 82553; 82607; 82728; 82746; 82803; 82962; 83010; 83540; 83550; 83605; 83615; 83690; 83735; 83880; 84100; 84443; 84484; 85007; 85025; 85362; 85384; 85610; 85730; 86850; 86900; 86901; 86920; 87040; 87070; 87081; 87181; 87205; 92950; 93005; 93306; 93970; 94002; 94003; 94640; J1815; J2370